=== PATIENT | female | born 1955 | race Caucasian/White ===

== ENCOUNTER 2023-05-22 18:22 | Inpatient (IN) ==
--- NOTE | 2023-05-22 18:39 | ED Triage Note ---
Date of Service May 22, 2023 History of Present Illness This patient was briefly evaluated while in triage. An abbreviated physical exam was performed. This patient is a 68-year-old Female who presents to the ED for evaluation of swelling in her legs and inability to put her shoes on. She also reports severe headaches, nausea and vomiting last week. The patient has a prior history of breast cancer. She follows with Dr. Daugherty. Physical Exam CONSTITUTIONAL: Healthy and well nourished. Patient does not appear in any significant distress. HEENT: No scleral icterus or conjunctival injection. RESPIRATORY: Clear to auscultation bilaterally with no wheezing, crackles, rhonchi or stridor. CARDIOVASCULAR: Regular rate and rhythm with no murmurs, rubs or gallops. MUSCULOSKELETAL: Examination shows notable edema of the lower extremities. Pedal pulses are intact. No open wounds or erythema noted. INTEGUMENTARY: No rash or other significant dermatologic conditions noted. HEMATOLOGIC: No ecchymosis or petechiae. PSYCHIATRIC: Flat affect. NEUROLOGIC: Lower extremities are sensory intact. Initial orders for labs and / or imaging were placed and patient was placed in the waiting area until a bed is available. Please see further documentation for the full ED course. MDM / Impression Impression Impression: Bilateral edema of lower extremity, AXEL (acute kidney injury), Hypertensive urgency
[2023-05-22 19:36] LABS: Basophils # (auto) 0.06 K/uL (0-0.2); Basophils % (auto) 0.4 %; Eosinophils % (auto) 2.2 %; Hematocrit (blood only) 32.8 % (37.0-47.0); Hemoglobin 10.6 g/dl (12.0-16.0); Immature Granulocytes # (auto) 0.05 K/uL (0.01-0.20); Immature Granulocytes % (auto) 0.4 %; Lymphocytes # (auto) 1.48 K/uL (1.2-3.4); Lymphocytes % (auto) 10.9 %; Mean Corpuscular Hemoglobin 28.3 pg (25.0-34.0); Mean Corpuscular Hgb Conc 32.3 g/dL (32.0-36.0); Mean Corpuscular Volume 87.5 fL (80.0-100.0); Mean Platelet Volume 10.4 fL (9.4-12.4); Monocytes # (auto) 0.64 K/uL (0.11-0.59); Monocytes % (auto) 4.7 %; Neutrophils # (auto) 11.04 K/uL (1.40-6.50); Neutrophils % (auto) 81.4 %; Platelet Count 404 K/uL (130-400); RDW Coefficient of Variation 14.6 % (11.5-14.5); RDW Standard Deviation 46.5 fL (36.4-46.3); Red Blood Count 3.75 M/uL (4.20-5.40); White Blood Count 13.57 K/ul (4.8-10.8)
[2023-05-22 19:59] LABS: Alanine Aminotransferase 18 U/L (7-52); Albumin Globulin Ratio 1.1 (0.9-2); Albumin Level 3.7 gm/dl (3.4-5.0); Alkaline Phosphatase 50 U/L (34-104); Anion Gap 8 (3-11); Aspartate Aminotransferase 20 U/L (13-39); Bilirubin,Total 0.2 mg/dl (0.2-1.0); Blood Urea Nitrogen 58 mg/dl (6-23); Calcium 8.9 mg/dl (8.6-10.3); Carbon Dioxide 23 mmol/L (21-32); Chloride 109 mmol/L (98-107); Est GFR (African American) 24.4 ml/min; Est GFR (Non-African American) 21.1 ml/min; Globulin 3.4 gm/dl (2.5-4.0); Glucose 93 mg/dl (70-99(Fasting)); Lipase 110 U/L (11-82); Potassium 4.8 mmol/L (3.5-5.1); Sodium 140 mmol/L (136-145); Total Protein 7.1 gm/dl (6.0-8.3)
[2023-05-22 20:06] LABS: Troponin I High Sensitivity 5.3 pg/ml (0-14)
[2023-05-22 20:15] LABS: INR 0.9 (0.9-1.1); Partial Thromboplastin Time 29.1 Seconds (21.0-31.0); Prothrombin Time 10.2 Seconds (9.0-12.0)
--- NOTE | 2023-05-22 21:06 | Emergency Department Note ---
Impression & Plan Bilateral edema of lower extremity, AXEL (acute kidney injury), Hypertensive urgency ED Provider Note Provider: Washington Abdi MD DATE OF SERVICE: 05/22/2023 CHIEF COMPLAINT: Leg swelling HISTORY OF PRESENT ILLNESS: Patient is a 68-year-old female history of breast cancer presenting here today with her due to onset over the last approximately 2 days of significant swelling of the lower legs. States she had difficulty getting her shoes on and is swelling here. States has been trying to hydrate well but having some loose stools. Denies any significant abdominal pain or chest pain. Denies any severe difficulty breathing. Patient has followed with Dr. Daugherty for oncology services. No recent significant travel reported. Patient and her report that in the [place] to get here today they were pulled over by the police but they were very concerned about her welfare and try to get the hospitalist quick as they could. PAST MEDICAL HISTORY: As noted above MEDICATIONS: Reviewed home medication list SOCIAL HISTORY: Lives at home with her third PHYSICAL EXAM: GENERAL: alert and oriented in no acute distress on stretcher somewhat tearful at times Head: normocephalic and atraumatic EYES: No injection, discharge or icterus. NECK: Trachea midline. ENT: Mucous membranes pink and moist. LUNGS: Airway patent. No retractions without significant tachypnea HEART: Regular rate and rhythm. No chest wall tenderness ABDOMEN: Soft and non-tender, without guarding or rebound. SKIN: Acyanotic, warm, dry, without rashes EXTREMITIES: Lower extremities with 3+ edema bilaterally without significant erythema or obvious weeping. NEUROLOGICAL: No focal deficits. No aphasia. No facial droop or slurred speech. Ambulatory. EK bpm sinus bradycardia with sinus arrhythmia. No PVC or PAC. No acute ST segment elevation or depression with QTc 388. CONTINUOUS CARDIAC MONITORING: was ordered and showed a heart rate of 60s-70s bpm in normal sinus rhythm Patient's laboratory studies and imaging reviewed. Differential includes CHF/ACS, infections, cardiac ischemia, pulmonary embolism/VTE, musculoskeletal, renal dysfunction, obstructive uropathy,, as well as other pathologies. 1 view chest x-ray per my interpretation: No evidence of cardiomegaly or significant pleural effusions. No consolidation but some pulmonary vascular congestion noted. IMPRESSION/MEDICAL DECISION MAKING: Reviewed [facility] medical record and last Dr. Daugherty note from March. Baseline cre atinine 1.3-1.2 last in March of this year. BNP and troponin not elevated today. EKG without acute ischemic findings. Significant swelling of bilateral lower extremities and ultrasounds obtained here from triage. No evidence of DVT. Basic labs obtained. Worsened renal function with AXEL at this time. D patient states has been trying to hydrate well. No evidence of hepatitis or pancreatitis. No severe electrolyte abnormalities. Nonspecific leukocytosis of 13.5 today. Slight anemia of 10.6. Not hypoxic here. Chest x-ray with maybe some slight pulmonary edema. Given her significant fluid overload and signs of renal dysfunction question if she may have more fluid overload type issues. We will send for a noncontrast CT scan of the abdomen pelvis to look for any obstructive findings. Discussed with patient and . Will require further care at the hospital given her significant edema. Will not add additional fluid at this time given evidence of fluid overload but consider diuresis. Patient has been hypertensive here. Given a small dose of hydralazine. CT report reviewed without evidence of obstructive uropathy. Small dose of Lasix ordered. Discussed with the hospitalist. DIAGNOSIS: Lower extremity edema, AXEL, hypertension DISPOSITION: Hospitalist will evaluate Patient was agreeable with this plan. Past Med/Surg History Medical History Acute schizophrenia Bipolar 1 disorder Breast cancer Surgical History No significant past surgical history Social History Smoking Status: Never smoker marital status: Current Living Situation: Spouse current occupational status: retired Feels Safe at Home: Yes Allergies Allergies Allergy/AdvReac Type Severity Reaction Status Date / Time cephalexin Allergy Severe HIVES Verified 05/22/23 21:36 cefprozil Allergy Unknown UNKNOWN Verified 05/22/23 21:36 Home Meds Home Medications Medication Instructions Recorded Confirmed cholecalciferol (vitamin D3) 50 50 mcg PO DAILY 05/22/23 05/22/23 mcg (2,000 unit) tablet (Vitamin D3) coenzyme Q10 30 mg capsule 30 mg PO DAILY 05/22/23 05/22/23 ferrous sulfate 325 mg (65 mg 325 mg PO DAILY 05/22/23 05/22/23 iron) tablet (iron) iodine (kelp) 0.15 mg tablet (Kelp) 0 mcg PO DAILY 05/22/23 05/22/23 vitamin B complex 1 tab PO DAILY 05/22/23 05/22/23 Results & Data (ED) Vital Signs Vital Signs - 24 hr 05/22/23 18:35 05/22/23 20:56 05/22/23 21:45 Temperature 36.6 C Temperature Source Temporal Artery Scan Pulse Rate 80 53 L 55 L Pulse Rate from SpO2 Sensor Pulse Rhythm Regular Respiratory Rate 18 18 Blood Pressure 173/91 H Blood Pressure Mean 118 Pulse Oximetry 99 100 Oxygen Delivery Method Room Air Room Air Sepsis Recent Fever Within 48 Hours No Sepsis New/Unexplained Change in Mental Status N/A Sepsis Action Taken by Nursing No Action Required 05/22/23 20:54 05/22/23 21:00 05/22/23 21:31 Temperature Temperature Source Pulse Rate 55 L 60 69 Pulse Rate from SpO2 Sensor 54 L 62 70 Pulse Rhythm Respiratory Rate 16 22 23 Blood Pressure 183/101 H 189/87 H 201/103 H Blood Pressure Mean 128 121 135 Pulse Oximetry 99 100 100 Oxygen Delivery Method Sepsis Recent Fever Within 48 Hours Sepsis New/Unexplained Change in Mental Status Sepsis Action Taken by Nursing 05/22/23 21:32 05/22/23 21:37 05/22/23 21:38 Temperature Temperature Source Pulse Rate 68 65 68 Pulse Rate from SpO2 Sensor 66 65 64 Pulse Rhythm Respiratory Rate 14 15 13 Blood Pressure 191/79 H 190/79 H 180/89 H Blood Pressure Mean 116 116 119 Pulse Oximetry 100 100 100 Oxygen Delivery Method Sepsis Recent Fever Within 48 Hours Sepsis New/Unexplained Change in Mental Status Sepsis Action Taken by Nursing Laboratory Data 05/22/23 19:15 05/22/23 19:15 Lab Results 05/22/23 05/22/23 05/22/23 Range/Units 19:15 19:15 19:15 WBC 13.57 H (4.8-10.8) K/ul RBC 3.75 L (4.20-5.40) M/uL Hgb 10.6 L (12.0-16.0) g/dl Hct 32.8 L (37.0-47.0) % MCV 87.5 (80.0-100.0) fL MCH 28.3 (25.0-34.0) pg MCHC 32.3 (32.0-36.0) g/dL RDW Std Deviation 46.5 H (36.4-46.3) fL RDW Coeff of Seth 14.6 H (11.5-14.5) % Plt Count 404 H (130-400) K/uL MPV 10.4 (9.4-12.4) fL Immature Gran % (Auto) 0.4 % Neut % (Auto) 81.4 % Lymph % (Auto) 10.9 % Grand % (Auto) 4.7 % Eos % (Auto) 2.2 % Baso % (Auto) 0.4 % Neut # (Auto) 11.04 H (1.40-6.50) K/uL Lymph # (Auto) 1.48 (1.2-3.4) K/uL Grand # (Auto) 0.64 H (0.11-0.59) K/uL Eos # (Auto) 0.30 (0-0.50) K/uL Baso # (Auto) 0.06 (0-0.2) K/uL Immature Gran # (Auto) 0.05 (0.01-0.20) K/uL PT 10.2 (9.0-12.0) Seconds INR 0.9 (0.9-1.1) APTT 29.1 (21.0-31.0) Seconds PTT Ratio 1.0 Sodium 140 (136-145) mmol/L Potassium 4.8 (3.5-5.1) mmol/L Chloride 109 H (98-107) mmol/L Carbon Dioxide 23 (21-32) mmol/L Anion Gap 8 (3-11) BUN 58 H (6-23) mg/dl Creatinine 2.32 H (0.6-1.2) mg/dl Est Cr Clr Drug Dosing Not Reportable Est GFR ( Amer) 24.4 ml/min Est GFR (Non-Af Amer) 21.1 ml/min BUN/Creatinine Ratio 25.0 H (10-20) Glucose 93 (70-99(Fasting)) mg/dl Calcium 8.9 (8.6-10.3) mg/dl Magnesium 2.4 (1.7-2.4) mg/dl Total Bilirubin 0.2 (0.2-1.0) mg/dl AST 20 (13-39) U/L ALT 18 (7-52) U/L Alkaline Phosphatase 50 (34-104) U/L Troponin I High Sens 5.3 (0-14) pg/ml B-Natriuretic Peptide (0-100) pg/ml Total Protein 7.1 (6.0-8.3) gm/dl Albumin 3.7 (3.4-5.0) gm/dl Globulin 3.4 (2.5-4.0) gm/dl Albumin/Globulin Ratio 1.1 (0.9-2) Lipase 110 H (11-82) U/L TSH (0.300-4.500) uIu/ml 05/22/23 05/22/23 Range/Units 19:15 19:16 WBC (4.8-10.8) K/ul RBC (4.20-5.40) M/uL Hgb (12.0-16.0) g/dl Hct (37.0-47.0) % MCV (80.0-100.0) fL MCH (25.0-34.0) pg MCHC (32.0-36.0) g/dL RDW Std Deviation (36.4-46.3) fL RDW Coeff of Seth (11.5-14.5) % Plt Count (130-400) K/uL MPV (9.4-12.4) fL Immature Gran % (Auto) % Neut % (Auto) % Lymph % (Auto) % Grand % (Auto) % Eos % (Auto) % Baso % (Auto) % Neut # (Auto) (1.40-6.50) K/uL Lymph # (Auto) (1.2-3.4) K/uL Grand # (Auto) (0.11-0.59) K/uL Eos # (Auto) (0-0.50) K/uL Baso # (Auto) (0-0.2) K/uL Immature Gran # (Auto) (0.01-0.20) K/uL PT (9.0-12.0) Seconds INR (0.9-1.1) APTT (21.0-31.0) Seconds PTT Ratio Sodium (136-145) mmol/L Potassium (3.5-5.1) mmol/L Chloride (98-107) mmol/L Carbon Dioxide (21-32) mmol/L Anion Gap (3-11) BUN (6-23) mg/dl Creatinine (0.6-1.2) mg/dl Est Cr Clr Drug Dosing Est GFR ( Amer) ml/min Est GFR (Non-Af Amer) ml/min BUN/Creatinine Ratio (10-20) Glucose (70-99(Fasting)) mg/dl Calcium (8.6-10.3) mg/dl Magnesium (1.7-2.4) mg/dl Total Bilirubin (0.2-1.0) mg/dl AST (13-39) U/L ALT (7-52) U/L Alkaline Phosphatase (34-104) U/L Troponin I High Sens (0-14) pg/ml B-Natriuretic Peptide 76 (0-100) pg/ml Total Protein (6.0-8.3) gm/dl Albumin (3.4-5.0) gm/dl Globulin (2.5-4.0) gm/dl Albumin/Globulin Ratio (0.9-2) Lipase (11-82) U/L TSH 3.993 (0.300-4.500) uIu/ml Administered Medications Discontinued Medications Hydralazine HCl (Hydralazine Hcl 20 Mg/Ml Vial) 5 mg IV NOW ONE Stop: 05/22/23 21:33 Last Admin: 05/22/23 21:37 Dose: 5 mg Documented By: MAS Imaging Data Radiologist's Impression: Venous Doppler Study 05/22/23 18:39 Exam(s): US VENOUS BILATERAL LOWER EXTREMITIES EXAM: US Duplex Bilateral Lower Extremities Veins CLINICAL HISTORY: Reason for exam: BLE edema. TECHNIQUE: Real-time duplex ultrasound scan of the bilateral lower extremity veins integrating B-mode two-dimensional vascular structure, Doppler spectral analysis, color flow Doppler imaging and compression. COMPARISON: No relevant prior studies available. FINDINGS: Right deep veins: Unremarkable. No DVT in the right common femoral, femoral, proximal deep femoral or popliteal veins. The veins demonstrate normal color flow, are normally compressible, with normal phasic flow and/or augmentation response. Right superficial veins: Unremarkable. No thrombus in the visualized right great saphenous vein. Left deep veins: Unremarkable. No DVT in the left common femoral, femoral, proximal deep femoral or popliteal veins. The veins demonstrate normal color flow, are normally compressible, with normal phasic flow and/or augmentation response. Left superficial veins: Unremarkable. No thrombus in the visualized left great saphenous vein. Soft tissues: No acute findings. No popliteal cyst. IMPRESSION: Normal bilateral lower extremity duplex venous ultrasound. Electronically signed by: Baljinder Valdez MD 05/22/23 21:28 PM Abdomen/Pelvis CT 05/22/23 21:27 Exam(s): CT ABDOMEN + PELVIS Without Contrast EXAM: CT Abdomen and Pelvis Without Intravenous Contrast CLINICAL HISTORY: axel, swelling. TECHNIQUE: Axial computed tomography images of the abdomen and pelvis without intravenous contrast. CTDI is 27.9 mGy and DLP is 1361.21 mGy-cm. Automated exposure control was utilized for the study. A dose lowering technique was utilized adhering to the principles of ALARA. COMPARISON: Unenhanced CT abdomen and pelvis dated 08/11/2019 FINDINGS: Lung bases: Unremarkable. No mass. No consolidation. Pleural space: Trace bilateral pleural effusions layering posteriorly subcentimeter in thickness. ABDOMEN: Liver: Unremarkable. Gallbladder and bile ducts: Stable cholecystectomy. No ductal dilation. Pancreas: Unremarkable. No ductal dilation. Spleen: Unremarkable. No splenomegaly. Adrenals: Unremarkable. No mass. Kidneys and ureters: The unenhanced kidneys demonstrate stable contours without nephrolithiasis or hydronephrosis. No ureteral stones. Stomach and bowel: No evidence for bowel obstruction. Evaluation of the bowel mucosa is slightly limited without contrast; however, no definite focal asymmetry suggested. PELVIS: Appendix: No findings to suggest acute appendicitis. Bladder: Unremarkable. No stones. Reproductive: Unremarkable as visualized. ABDOMEN and PELVIS: Intraperitoneal space: Unremarkable. No free air. No significant fluid collection. Bones/joints: No acute fracture. No dislocation. Soft tissues: Similar laxity and atrophy of the anterior abdominal wall musculature, similar. Subtle subcutaneous fat stranding and edema involving the superficial soft tissues of the pelvis and inferior abdomen, new. No loculated fluid collection. Vasculature: Unremarkable. No abdominal aortic aneurysm. Lymph nodes: Unremarkable. No enlarged lymph nodes. IMPRESSION: 1. The unenhanced kidneys demonstrate stable contours without nephrolithiasis or hydronephrosis. No ureteral stones. 2. Subtle subcutaneous fat stranding and edema involving the superficial soft tissues of the pelvis and inferior abdomen, new. No loculated fluid collection. Findings are nonspecific but may represent subtle positive fluid status or inflammation. 3. Trace bilateral pleural effusions layering posteriorly subcentimeter in thickness. Electronically signed by: Len Sal MD 05/22/23 22:52 PM Discharge Plan Visit Data Chief Complaint: Swelling/Edema to Extremity Stated Complaint: CANCER PT,EXTREME SWELLING LEGS TO KNEES ED Provider: Washington Abdi Discharge Problem: Bilateral edema of lower extremity, AXEL (acute kidney injury), Hypertensive urgency Patient Disposition: Being Evaluated by Hospitalist Forms Stand Alone Forms: My [facility] Prescriptions Prescriptions: No Action Kelp 0.15 mg Tablet 0 mcg PO DAILY ferrous sulfate [iron] 325 mg (65 mg iron) Tablet 325 mg PO DAILY vitamin B complex [Vitamin B-100 Complex] Tablet 1 tab PO DAILY coenzyme Q10 [CoQ-10] 30 mg Capsule 30 mg PO DAILY cholecalciferol (vitamin D3) [Vitamin D3] 50 mcg (2,000 unit) Tablet 50 mcg PO DAILY Referrals Referrals: Anthony Costello DO [Primary Care Provider] -
--- NOTE | 2023-05-22 21:29 | Ultrasound Report ---
Exam(s): US VENOUS BILATERAL LOWER EXTREMITIES EXAM: US Duplex Bilateral Lower Extremities Veins CLINICAL HISTORY: Reason for exam: BLE edema. TECHNIQUE: Real-time duplex ultrasound scan of the bilateral lower extremity veins integrating B-mode two-dimensional vascular structure, Doppler spectral analysis, color flow Doppler imaging and compression. COMPARISON: No relevant prior studies available. FINDINGS: Right deep veins: Unremarkable. No DVT in the right common femoral, femoral, proximal deep femoral or popliteal veins. The veins demonstrate normal color flow, are normally compressible, with normal phasic flow and/or augmentation response. Right superficial veins: Unremarkable. No thrombus in the visualized right great saphenous vein. Left deep veins: Unremarkable. No DVT in the left common femoral, femoral, proximal deep femoral or popliteal veins. The veins demonstrate normal color flow, are normally compressible, with normal phasic flow and/or augmentation response. Left superficial veins: Unremarkable. No thrombus in the visualized left great saphenous vein. Soft tissues: No acute findings. No popliteal cyst. IMPRESSION: Normal bilateral lower extremity duplex venous ultrasound. Electronically signed by: Baljinder Valdez MD 05/22/23 21:28 PM
[2023-05-22] MEDS ORDERED: hydrALAZINE HCL 20 MG/ML VIAL IV ONE (21:32)
[2023-05-22] MEDS ORDERED: FUROSEMIDE INJ 20 MG/2 ML VIAL IV ONE (22:31)
[2023-05-22] MEDS ORDERED: ALBUMIN 25% 25 GM/100 ML VIAL IV ONE (22:43)
--- NOTE | 2023-05-22 22:53 | CT Scan Report ---
Exam(s): CT ABDOMEN + PELVIS Without Contrast EXAM: CT Abdomen and Pelvis Without Intravenous Contrast CLINICAL HISTORY: meaghan, swelling. TECHNIQUE: Axial computed tomography images of the abdomen and pelvis without intravenous contrast. CTDI is 27.9 mGy and DLP is 1361.21 mGy-cm. Automated exposure control was utilized for the study. A dose lowering technique was utilized adhering to the principles of ALARA. COMPARISON: Unenhanced CT abdomen and pelvis dated 08/11/2019 FINDINGS: Lung bases: Unremarkable. No mass. No consolidation. Pleural space: Trace bilateral pleural effusions layering posteriorly subcentimeter in thickness. ABDOMEN: Liver: Unremarkable. Gallbladder and bile ducts: Stable cholecystectomy. No ductal dilation. Pancreas: Unremarkable. No ductal dilation. Spleen: Unremarkable. No splenomegaly. Adrenals: Unremarkable. No mass. Kidneys and ureters: The unenhanced kidneys demonstrate stable contours without nephrolithiasis or hydronephrosis. No ureteral stones. Stomach and bowel: No evidence for bowel obstruction. Evaluation of the bowel mucosa is slightly limited without contrast; however, no definite focal asymmetry suggested. PELVIS: Appendix: No findings to suggest acute appendicitis. Bladder: Unremarkable. No stones. Reproductive: Unremarkable as visualized. ABDOMEN and PELVIS: Intraperitoneal space: Unremarkable. No free air. No significant fluid collection. Bones/joints: No acute fracture. No dislocation. Soft tissues: Similar laxity and atrophy of the anterior abdominal wall musculature, similar. Subtle subcutaneous fat stranding and edema involving the superficial soft tissues of the pelvis and inferior abdomen, new. No loculated fluid collection. Vasculature: Unremarkable. No abdominal aortic aneurysm. Lymph nodes: Unremarkable. No enlarged lymph nodes. IMPRESSION: 1. The unenhanced kidneys demonstrate stable contours without nephrolithiasis or hydronephrosis. No ureteral stones. 2. Subtle subcutaneous fat stranding and edema involving the superficial soft tissues of the pelvis and inferior abdomen, new. No loculated fluid collection. Findings are nonspecific but may represent subtle positive fluid status or inflammation. 3. Trace bilateral pleural effusions layering posteriorly subcentimeter in thickness. Electronically signed by: Len Sal MD 05/22/23 22:52 PM
[2023-05-22 23:41] LABS: Magnesium 2.4 mg/dl (1.7-2.4)
--- NOTE | 2023-05-23 00:25 | CT Scan Report ---
Exam(s): CT HEAD Without Contrast EXAM: CT Head Without Intravenous Contrast CLINICAL HISTORY: valle, sbp 200. TECHNIQUE: Axial computed tomography images of the head/brain without intravenous contrast. CTDI is 36.5 mGy and DLP is 625.8 mGy-cm. Automated exposure control was utilized for the study. A dose lowering technique was utilized adhering to the principles of ALARA. COMPARISON: Noncontrast CT head 12/26/2013 FINDINGS: Brain: Unremarkable. No hemorrhage. No significant white matter disease. No edema. Ventricles: Unremarkable. No ventriculomegaly. Bones/joints: Unremarkable. No acute fracture. Soft tissues: Unremarkable. Sinuses: Unremarkable as visualized. No acute sinusitis. Mastoid air cells: Unremarkable as visualized. No mastoid effusion. IMPRESSION: No acute intracranial process or significant alteration from the previous examination. Electronically signed by: Len Sal MD 05/23/23 00:25 AM
--- NOTE | 2023-05-23 00:38 | History & Physical Report ---
Date of Service May 23, 2023 Assessment & Plan (1) Hypertensive crisis: Plan: Presenting with signs of fluid retention/possible right-sided heart failure Rule out sleep disordered breathing ARF on CKD secondary to illness recurrent breast cancer left status post surgery/reconstruction/chemotherapy chronic anemia, hemoglobin at baseline mood disorder, at baseline, patient off maintenance medications PCU Initiate Coreg TTE Outpatient sleep study Monitor creatinine response to IV albumin Nephrology consult Re: HTN, ARF on CKD Further management pending work-up results DVT prophylaxis. Heparin subcu Full code Patient requesting updates from providers. Mr. Laureano Garcia, contact #[phone]. Text document was generated using Medigo voice recognition software. It may contain grammatical or spelling errors. Kindly contact undersigned for clarification of any documentation item in question. History of Present Illness Chief Complaint: Bilateral leg swelling, weight gain, headache Primary Care Provider: Anthony Costello DO/Laverne Hameed/SYMONE History obtained from patient, family, and records. Medical history significant for recurrent breast cancer left status post surgery/reconstruction/chemotherapy, CRI (baseline creatinine 1.3), chronic anemia (baseline hemoglobin of 10), mood disorder, orthostatic hypotension as per records, difficult intubation as per records. Last confinement 2013 under Psychiatry service for bipolar disorder/mick. 2 days ago, patient noted increased bilateral leg swelling with unquantified weight gain. Patient took 2 Aleve tablets for pain. Achy headache symptoms. No chest pain. Usual shortness of breath worse on exertion. Some abdominal discomfort. No fever, no chills. Patient thinks patient may have sleep apnea given witnessed snoring symptoms and possible apnea during sleep. Patient brought to the ER for evaluation. Highest SBP at the ER 200s. Hydralazine and Lasix administered at the ER. 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 Allergies Allergy/AdvReac Type Severity Reaction Status Date / Time cephalexin Allergy Severe HIVES Verified 05/22/23 21:36 cefprozil Allergy Unknown UNKNOWN Verified 05/22/23 21:36 Home Medications Medication Instructions Recorded Confirmed Type cholecalciferol (vitamin D3) 50 50 mcg PO DAILY 05/22/23 05/22/23 History mcg (2,000 unit) tablet (Vitamin D3) coenzyme Q10 30 mg capsule 30 mg PO DAILY 05/22/23 05/22/23 History ferrous sulfate 325 mg (65 mg 325 mg PO DAILY 05/22/23 05/22/23 History iron) tablet (iron) iodine (kelp) 0.15 mg tablet (Kelp) 0 mcg PO DAILY 05/22/23 05/22/23 History vitamin B complex 1 tab PO DAILY 05/22/23 05/22/23 History Past Med/Surg History Medical History Acute schizophrenia Bipolar 1 disorder Breast cancer Surgical History No significant past surgical history Social History Smoking Status: Former smoker Second Hand Exposure: No; Do You Dip or Chew Tobacco: No; Hx Alcohol Use: No Hx Substance Use: No Preferred Language: Maldivian Communication Ability: Effective 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: No Beliefs That Will Affect Care: None marital status: Current Living Situation: Spouse current occupational status: retired Other Information That Helps Us Care for You: No Feels Safe at Home: Yes Safety Concerns: Feels Safe At This Time Assistive Devices: Glasses Review of Systems Review of Systems: As per HPI, all other systems reviewed and negative Physical Exam Physical Exam: GENERAL: Slightly uncomfortable, morbidly obese, unkempt, no respiratory distress SKIN: Pallor, warm HEENT: Pale palpebral conjunctivae, no ptosis, dry buccal mucosa NECK : Supple, short neck, no tenderness CHEST : Decreased breath sounds, no tenderness HEART : RRR, no obvious murmurs ABDOMEN: Some distention, nontender EXTREMITIES : Bilateral LE swelling, no LE tenderness, no other conspicuous deformities noted NEUROLOGIC : Coherent, no facial asymmetry, no other gross focality Results & Data Results & Data Vital Signs (Past 12 Hours) Vital Signs Temp Pulse Resp BP Pulse Ox O2 Del Method 05/23/23 00:25 83 29 H 196/98 H 05/23/23 00:22 76 32 H 187/90 H 05/23/23 00:16 67 20 163/110 H 05/23/23 00:10 65 16 159/87 H 97 05/23/23 00:05 57 L 22 161/78 H 98 05/23/23 00:00 67 17 148/89 H 98 05/22/23 23:55 65 17 155/77 H 97 05/22/23 23:50 56 L 15 153/79 H 98 05/22/23 23:45 57 L 18 98 05/22/23 23:36 64 16 160/76 H 100 05/22/23 23:15 58 L 16 164/71 H 99 05/22/23 23:11 59 L 14 99 05/22/23 23:00 68 14 174/69 H 98 05/22/23 22:55 71 25 H 137/108 H 99 05/22/23 22:45 65 15 175/85 H 98 05/22/23 22:40 58 L 16 165/82 H 97 05/22/23 22:35 61 15 178/80 H 97 05/22/23 22:30 60 15 173/86 H 98 05/22/23 22:25 63 12 167/80 H 98 05/22/23 22:20 53 L 12 171/84 H 98 05/22/23 22:18 54 L 18 169/82 H 99 05/22/23 22:16 60 11 L 05/22/23 21:55 53 L 16 187/80 H 100 05/22/23 21:50 55 L 15 187/81 H 99 05/22/23 21:45 189/80 H 05/22/23 21:45 55 L 23 170/76 H 100 05/22/23 21:41 55 L 15 177/86 H 99 05/22/23 21:38 68 13 180/89 H 100 05/22/23 21:37 65 15 190/79 H 100 05/22/23 21:32 68 14 191/79 H 100 05/22/23 21:31 69 23 201/103 H 100 05/22/23 21:00 60 22 189/87 H 100 05/22/23 20:54 55 L 16 183/101 H 99 05/22/23 21:45 55 L 18 100 Room Air 05/22/23 20:56 53 L 05/22/23 18:35 36.6 C 80 18 173/91 H 99 Room Air Laboratory Results Laboratory Results WBC 13.57 K/ul (4.8-10.8) H 05/22/23 19:15 RBC 3.75 M/uL (4.20-5.40) L 05/22/23 19:15 Hgb 10.6 g/dl (12.0-16.0) L 05/22/23 19:15 Hct 32.8 % (37.0-47.0) L 05/22/23 19:15 MCV 87.5 fL (80.0-100.0) 05/22/23 19:15 MCH 28.3 pg (25.0-34.0) 05/22/23 19:15 MCHC 32.3 g/dL (32.0-36.0) 05/22/23 19:15 RDW Std Deviation 46.5 fL (36.4-46.3) H 05/22/23 19:15 RDW Coeff of Seth 14.6 % (11.5-14.5) H 05/22/23 19:15 Plt Count 404 K/uL (130-400) H 05/22/23 19:15 MPV 10.4 fL (9.4-12.4) 05/22/23 19:15 Immature Gran % (Auto) 0.4 % 05/22/23 19:15 Neut % (Auto) 81.4 % 05/22/23 19:15 Lymph % (Auto) 10.9 % 05/22/23 19:15 Ada % (Auto) 4.7 % 05/22/23 19:15 Eos % (Auto) 2.2 % 05/22/23 19:15 Baso % (Auto) 0.4 % 05/22/23 19:15 Neut # (Auto) 11.04 K/uL (1.40-6.50) H 05/22/23 19:15 Lymph # (Auto) 1.48 K/uL (1.2-3.4) 05/22/23 19:15 Ada # (Auto) 0.64 K/uL (0.11-0.59) H 05/22/23 19:15 Eos # (Auto) 0.30 K/uL (0-0.50) 05/22/23 19:15 Baso # (Auto) 0.06 K/uL (0-0.2) 05/22/23 19:15 Immature Gran # (Auto) 0.05 K/uL (0.01-0.20) 05/22/23 19:15 PT 10.2 Seconds (9.0-12.0) 05/22/23 19:15 INR 0.9 (0.9-1.1) 05/22/23 19:15 APTT 29.1 Seconds (21.0-31.0) 05/22/23 19:15 PTT Ratio 1.0 05/22/23 19:15 Sodium 140 mmol/L (136-145) 05/22/23 19:15 Potassium 4.8 mmol/L (3.5-5.1) 05/22/23 19:15 Chloride 109 mmol/L (98-107) H 05/22/23 19:15 Carbon Dioxide 23 mmol/L (21-32) 05/22/23 19:15 Anion Gap 8 (3-11) 05/22/23 19:15 BUN 58 mg/dl (6-23) H 05/22/23 19:15 Creatinine 2.32 mg/dl (0.6-1.2) H 05/22/23 19:15 Est Cr Clr Drug Dosing Not Reportable 05/22/23 19:15 Est GFR ( Amer) 24.4 ml/min 05/22/23 19:15 Est GFR (Non-Af Amer) 21.1 ml/min 05/22/23 19:15 BUN/Creatinine Ratio 25.0 (10-20) H 05/22/23 19:15 Glucose 93 mg/dl (70-99(Fasting)) 05/22/23 19:15 Calcium 8.9 mg/dl (8.6-10.3) 05/22/23 19:15 Magnesium 2.4 mg/dl (1.7-2.4) 05/22/23 19:15 Total Bilirubin 0.2 mg/dl (0.2-1.0) 05/22/23 19:15 AST 20 U/L (13-39) 05/22/23 19:15 ALT 18 U/L (7-52) 05/22/23 19:15 Alkaline Phosphatase 50 U/L (34-104) 05/22/23 19:15 Troponin I High Sens 5.3 pg/ml (0-14) 05/22/23 19:15 B-Natriuretic Peptide 76 pg/ml (0-100) 05/22/23 19:15 Total Protein 7.1 gm/dl (6.0-8.3) 05/22/23 19:15 Albumin 3.7 gm/dl (3.4-5.0) 05/22/23 19:15 Globulin 3.4 gm/dl (2.5-4.0) 05/22/23 19:15 Albumin/Globulin Ratio 1.1 (0.9-2) 05/22/23 19:15 Lipase 110 U/L (11-82) H 05/22/23 19:15 TSH 3.993 uIu/ml (0.300-4.500) 05/22/23 19:16 SARS-CoV-2, RNA, NAAT NEGATIVE (NEGATIVE) 05/22/23 23:58 Impressions Venous Doppler Study 05/22/23 18:39 Exam(s): US VENOUS BILATERAL LOWER EXTREMITIES EXAM: US Duplex Bilateral Lower Extremities Veins CLINICAL HISTORY: Reason for exam: BLE edema. TECHNIQUE: Real-time duplex ultrasound scan of the bilateral lower extremity veins integrating B-mode two-dimensional vascular structure, Doppler spectral analysis, color flow Doppler imaging and compression. COMPARISON: No relevant prior studies available. FINDINGS: Right deep veins: Unremarkable. No DVT in the right common femoral, femoral, proximal deep femoral or popliteal veins. The veins demonstrate normal color flow, are normally compressible, with normal phasic flow and/or augmentation response. Right superficial veins: Unremarkable. No thrombus in the visualized right great saphenous vein. Left deep veins: Unremarkable. No DVT in the left common femoral, femoral, proximal deep femoral or popliteal veins. The veins demonstrate normal color flow, are normally compressible, with normal phasic flow and/or augmentation response. Left superficial veins: Unremarkable. No thrombus in the visualized left great saphenous vein. Soft tissues: No acute findings. No popliteal cyst. IMPRESSION: Normal bilateral lower extremity duplex venous ultrasound. Electronically signed by: Baljinder Valdez MD 05/22/23 21:28 PM Abdomen/Pelvis CT 05/22/23 21:27 Exam(s): CT ABDOMEN + PELVIS Without Contrast EXAM: CT Abdomen and Pelvis Without Intravenous Contrast CLINICAL HISTORY: meaghan, swelling. TECHNIQUE: Axial computed tomography images of the abdomen and pelvis without intravenous contrast. CTDI is 27.9 mGy and DLP is 1361.21 mGy-cm. Automated exposure control was utilized for the study. A dose lowering technique was utilized adhering to the principles of ALARA. COMPARISON: Unenhanced CT abdomen and pelvis dated 08/11/2019 FINDINGS: Lung bases: Unremarkable. No mass. No consolidation. Pleural space: Trace bilateral pleural effusions layering posteriorly subcentimeter in thickness. ABDOMEN: Liver: Unremarkable. Gallbladder and bile ducts: Stable cholecystectomy. No ductal dilation. Pancreas: Unremarkable. No ductal dilation. Spleen: Unremarkable. No splenomegaly. Adrenals: Unremarkable. No mass. Kidneys and ureters: The unenhanced kidneys demonstrate stable contours without nephrolithiasis or hydronephrosis. No ureteral stones. Stomach and bowel: No evidence for bowel obstruction. Evaluation of the bowel mucosa is slightly limited without contrast; however, no definite focal asymmetry suggested. PELVIS: Appendix: No findings to suggest acute appendicitis. Bladder: Unremarkable. No stones. Reproductive: Unremarkable as visualized. ABDOMEN and PELVIS: Intraperitoneal space: Unremarkable. No free air. No significant fluid collection. Bones/joints: No acute fracture. No dislocation. Soft tissues: Similar laxity and atrophy of the anterior abdominal wall musculature, similar. Subtle subcutaneous fat stranding and edema involving the superficial soft tissues of the pelvis and inferior abdomen, new. No loculated fluid collection. Vasculature: Unremarkable. No abdominal aortic aneurysm. Lymph nodes: Unremarkable. No enlarged lymph nodes. IMPRESSION: 1. The unenhanced kidneys demonstrate stable contours without nephrolithiasis or hydronephrosis. No ureteral stones. 2. Subtle subcutaneous fat stranding and edema involving the superficial soft tissues of the pelvis and inferior abdomen, new. No loculated fluid collection. Findings are nonspecific but may represent subtle positive fluid status or inflammation. 3. Trace bilateral pleural effusions layering posteriorly subcentimeter in thickness. Electronically signed by: Len Sal MD 05/22/23 22:[address] 05/22/23 22:59 Exam(s): CT HEAD Without Contrast EXAM: CT Head Without Intravenous Contrast CLINICAL HISTORY: valle, sbp 200. TECHNIQUE: Axial computed tomography images of the head/brain without intravenous contrast. CTDI is 36.5 mGy and DLP is 625.8 mGy-cm. Automated exposure control was utilized for the study. A dose lowering technique was utilized adhering to the principles of ALARA. COMPARISON: Noncontrast CT head 12/26/2013 FINDINGS: Brain: Unremarkable. No hemorrhage. No significant white matter disease. No edema. Ventricles: Unremarkable. No ventriculomegaly. Bones/joints: Unremarkable. No acute fracture. Soft tissues: Unremarkable. Sinuses: Unremarkable as visualized. No acute sinusitis. Mastoid air cells: Unremarkable as visualized. No mastoid effusion. IMPRESSION: No acute intracranial process or significant alteration from the previous examination. Electronically signed by: Len Sal MD 05/23/23 00:25 AM Diagnostic Findings EKG as per my interpretation : Rate 55, sinus bradycardia, normal axis, no ischemia
[2023-05-23] MEDS ORDERED: carvediloL 3.125 MG TAB PO ONE (00:41)
[2023-05-23] MEDS ORDERED: ACETAMINOPHEN 325 MG TAB PO PRN (02:13)
[2023-05-23] MEDS ORDERED: PROMETHAZINE HCL 12.5 MG in SODIUM CHLORIDE 0.9% 50 ML IV PRN (02:13)
[2023-05-23] MEDS ORDERED: traMADol HCL 50 MG TABLET PO PRN (02:13)
[2023-05-23 02:35] LABS: Appearance Urine Clear (Clear); Bilirubin Urine Negative (Negative); Blood Urine Negative (Negative); Color Urine Yellow; Epithelial Cell Urine Auto >30 /lpf (0-5); Glucose Urine UA Negative (Negative); Ketones Urine Negative (Negative); Leukocyte Esterase Urine Negative (Negative); Nitrite Urine Negative (Negative); Protein Urine 4+ (Negative); Urobilinogen Urine Negative (Negative)
[2023-05-23 03:13] LABS: Bacteria Urine Automated 1+ (Negative); RBC Urine Automated 0-4 /hpf (0-4)
[2023-05-23 06:36] LABS: Basophils # (auto) 0.03 K/uL (0-0.2); Basophils % (auto) 0.3 %; Eosinophils # (auto) 0.16 K/uL (0-0.50); Eosinophils % (auto) 1.5 %; Hematocrit (blood only) 29.5 % (37.0-47.0); Hemoglobin 9.8 g/dl (12.0-16.0); Immature Granulocytes # (auto) 0.04 K/uL (0.01-0.20); Immature Granulocytes % (auto) 0.4 %; Lymphocytes # (auto) 1.33 K/uL (1.2-3.4); Lymphocytes % (auto) 12.6 %; Mean Corpuscular Hemoglobin 28.7 pg (25.0-34.0); Mean Corpuscular Hgb Conc 33.2 g/dL (32.0-36.0); Mean Corpuscular Volume 86.5 fL (80.0-100.0); Mean Platelet Volume 10.3 fL (9.4-12.4); Monocytes # (auto) 0.64 K/uL (0.11-0.59); Monocytes % (auto) 6.1 %; Neutrophils # (auto) 8.33 K/uL (1.40-6.50); Neutrophils % (auto) 79.1 %; Platelet Count 325 K/uL (130-400); RDW Coefficient of Variation 14.7 % (11.5-14.5); RDW Standard Deviation 46.3 fL (36.4-46.3); Red Blood Count 3.41 M/uL (4.20-5.40); White Blood Count 10.53 K/ul (4.8-10.8)
[2023-05-23 06:48] LABS: BUN Creatinine Ratio 24.8 (10-20); Calcium 8.5 mg/dl (8.6-10.3); Creatinine Clr Calc Pharmacy 32.1 ml/min; Est GFR (African American) 25.2 ml/min; Est GFR (Non-African American) 21.7 ml/min; Potassium 4.7 mmol/L (3.5-5.1)
--- NOTE | 2023-05-23 07:46 | XRay Report ---
XR chest 1V not portable CLINICAL HISTORY: Chest pain, nonspecific COMPARISON STUDY: Chest radiograph February 09, 2015. FINDINGS: Old healed proximal right humeral fracture is noted. There is no pneumothorax. No significa nt pleural effusion. No evidence for pulmonary edema. Cardiac size is at the upper limits of normal. There is a calcified granuloma within the left upper lobe. IMPRESSION: No acute cardiopulmonary findings. ACT 112: Negative or not required by law. Electronically signed by: Luca Ny M.D. 05/23/2023 7:44 AM
[2023-05-23] MEDS ORDERED: ALBUMIN 25% 25 GM/100 ML VIAL IV SCH (08:00)
[2023-05-23] MEDS: VITAMIN B COMPLEX TAB PO SCH (09:51)
[2023-05-23] MEDS: FERROUS SULFATE 325 MG TAB PO SCH (09:51)
--- NOTE | 2023-05-23 10:55 | Nephrology Consultation ---
Date of Consultation May 23, 2023 Assessment & Plan (1) AXEL (acute kidney injury): stage 1 nonoliguric AXEL on CKD 3B w/ acceptable chemistries. > quantify protein - order in -diurese > recommend lasix 20 mg IV 0600, midday, 1800 >> but for today will start with lasix now, 1500, 1900 -will give 20 mEq K daily on lasix (2) CKD (chronic kidney disease) stage 3, GFR 30-59 ml/min: baseline 1.2-1.3. With protienuria and uncontrolle dHTN > favor OP nephro f/u in [place] near where she lives -look to start ACEI this admission or after d/c (3) Hypertensive urgency: goal BP is 130-150s -lasix as above to start -low sodium diet -f/u TTE -strange affect/ pressured speech > low threshold for psych eval if she agrees as HTN may have siutational component History of Present Illness Reason for Consultation: AXEL on CKD Requesting Physician: Dr Howard Attending Physician: Rohini Dee MD History of Present Illness 68 y/o F whom I'm asked to see for AXEL on CKD was admitted overnight for hypertensive urgency after presenting with about a week of worsening LE edema and noted to have SBP in the 170-190s for 4-5 hours. PMH of L breast cancer status post 2019 surgery/reconstruction/chemotherapy w/o evidence of further recurrence as of 03/2023, CRI (baseline creatinine 1.2-1.3), mood disorder not currently on meds, orthostatic hypotension as per records. Hospitalized 2013 for bipolar disorder/mick. Follows w/ Dr Nikolas Daugherty, last seen 03/2023. OP BP over past year run 140-160s systolic. her OP weight over the past year is 111-116 kg (weighs 121.6 kg here). JAMI suspected per admiting service adn hx gave. Pt endorses R flank/lower back pain . Tells me she took 2 aleve tablets for the flank pain and R sided RIOS priro to admission. denies dysuria/frequency, gross hematuria or other voiding concerns. Denies dyspnea and endorses stable chronic exertional dyspnea. cough orhtopnea or chest pain or paliptiations. no light headedness or dizziness; no falls. no diarrhea or n/v or abd pain reported to me. denies f/c. c/o R ear fullness and tinnitus She was treated w/ hydralazine and 20 mg IV lasix. SBP this am is 150-160s. TTE is pending. Allergies Allergy/AdvReac Type Severity Reaction Status Date / Time cephalexin Allergy Severe HIVES Verified 05/22/23 21:36 cefprozil Allergy Unknown UNKNOWN Verified 05/22/23 21:36 Home Medications Medication Instructions Recorded Confirmed Type cholecalciferol (vitamin D3) 50 50 mcg PO DAILY 05/22/23 05/22/23 History mcg (2,000 unit) tablet (Vitamin D3) coenzyme Q10 30 mg capsule 30 mg PO DAILY 05/22/23 05/22/23 History ferrous sulfate 325 mg (65 mg 325 mg PO DAILY 05/22/23 05/22/23 History iron) tablet (iron) iodine (kelp) 0.15 mg tablet (Kelp) 0 mcg PO DAILY 05/22/23 05/22/23 History vitamin B complex 1 tab PO DAILY 05/22/23 05/22/23 History Patient History Medical History (Updated 05/23/23 @ 11:21 by Svetlana Love MD, PhD) Acute schizophrenia Bipolar 1 disorder Breast cancer CKD (chronic kidney disease) stage 3, GFR 30-59 ml/min Class 3 obesity Surgical History No significant past surgical history Social History Smoking Status: Former smoker Second Hand Exposure: No; Do You Dip or Chew Tobacco: No; Hx Alcohol Use: No Hx Substance Use: No Preferred Language: Georgian Communication Ability: Effective 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 Beliefs That Will Affect Care: None marital status: Current Living Situation: Spouse current occupational status: retired Other Information That Helps Us Care for You: No Feels Safe at Home: Yes Safety Concerns: Feels Safe At This Time Assistive Devices: Glasses Review of Systems Review of Systems: All systems reviewed & are unremarkable except as noted in HPI & below Physical Exam Constitutional: well developed and well nourished Eyes: EOM intact bilaterally ENMT: Ears: no external ear abnormality Nose: no external nose abnormality Mouth: + dry oral mucous membranes Neck: no nuchal rigidity Respiratory: normal respiratory effort Auscultation: + diminished lung sounds Gastrointestinal (Abdomen): Inspection/Auscultation: normal bowel sounds Percussion/Palpation: abdomen soft; abdomen nontender Musculoskeletal: Extremities: strength 5/5 throughout Skin: no rashes, warm and dry Neurologic: haynes, fluent speech, no tremor Psychiatric: Orientation: alert, oriented to person and oriented to place Speech: + pressured speech Results & Data Vital Signs (Past 12 Hours) Vital Signs Temp Pulse Pulse Resp BP BP Pulse Ox 05/23/23 08:08 36.8 C 73 20 168/81 H 98 05/23/23 03:38 36.5 C 65 21 145/80 H 99 05/23/23 02:03 36.6 C 74 22 157/84 H 100 05/23/23 01:40 80 22 156/89 H 05/23/23 01:35 78 18 154/79 H 100 05/23/23 01:30 75 16 151/76 H 100 05/23/23 01:25 75 15 149/74 H 100 05/23/23 01:20 70 14 149/68 H 100 05/23/23 01:15 71 16 160/79 H 100 05/23/23 01:10 76 20 165/72 H 98 05/23/23 01:08 85 20 169/88 H 05/23/23 00:55 62 12 157/77 H 99 05/23/23 00:50 61 14 164/76 H 99 05/23/23 00:45 69 19 163/82 H 99 05/23/23 00:40 68 17 180/91 H 05/23/23 00:35 73 18 172/79 H 05/23/23 00:33 74 18 167/98 H 05/23/23 00:25 83 29 H 196/98 H 05/23/23 00:22 76 32 H 187/90 H 05/23/23 00:16 67 20 163/110 H 05/23/23 00:10 65 16 159/87 H 97 05/23/23 00:05 57 L 22 161/78 H 98 05/23/23 00:00 67 17 148/89 H 98 05/22/23 23:55 65 17 155/77 H 97 05/22/23 23:50 56 L 15 153/79 H 98 05/22/23 23:45 57 L 18 98 05/22/23 23:36 64 16 160/76 H 100 05/22/23 23:15 58 L 16 164/71 H 99 05/22/23 23:11 59 L 14 99 05/22/23 23:00 68 14 174/69 H 98 05/22/23 22:55 71 25 H 137/108 H 99 O2 Del Method 05/23/23 08:08 Room Air 05/23/23 03:38 Room Air 05/23/23 02:03 Room Air 05/23/23 01:40 05/23/23 01:35 05/23/23 01:30 05/23/23 01:25 05/23/23 01:20 05/23/23 01:15 05/23/23 01:10 05/23/23 01:08 05/23/23 00:55 05/23/23 00:50 05/23/23 00:45 05/23/23 00:40 05/23/23 00:35 05/23/23 00:33 05/23/23 00:25 05/23/23 00:22 05/23/23 00:16 05/23/23 00:10 05/23/23 00:05 05/23/23 00:00 05/22/23 23:55 05/22/23 23:50 05/22/23 23:45 05/22/23 23:36 05/22/23 23:15 05/22/23 23:11 05/22/23 23:00 05/22/23 22:55 Laboratory Results 05/23/23 06:04 05/23/23 06:[address] head, a/p, Dopplers, CXR reveiwed > no acut eprocess
[2023-05-23] MEDS ORDERED: FUROSEMIDE INJ 20 MG/2 ML VIAL IV STA (11:26)
[2023-05-23] MEDS: POTASSIUM CHLORIDE CRTAB 20 MEQ TABCR PO SCH (11:44)
[2023-05-23 13:34] LABS: Creatinine Urine Random 181.2 mg/dl
[2023-05-23 14:04] LABS: Total Protein Urine Random > 1000.0 mg/dl (0-11.9)
[2023-05-23] MEDS: HEPARIN SOD 5,000 UNIT/0.5 ML VIAL SQ SCH ×2 (14:22→20:31)
--- NOTE | 2023-05-23 14:29 | Communication Note ---
Date of Service: May 23, 2023 68 year old woman with PMH significant for recurrent breast cancer left status post surgery/reconstruction/chemotherapy, CRI (baseline creatinine 1.3), chronic anemia (baseline hemoglobin of 10), mood disorder, orthostatic hypotension as per records, difficult intubation who presents with bilateral leg swelling and frontal headache Patient is a poor historian and quite garrulous, occasionally tough to keep on track. Currently denies any headache, cough, SOB at rest. Reports chronic CORDOVA Exam notable for obese woman with extensive b/l LE edema Labs reviewed Patient has AXEL, hypertensive emergency Nephro recs appreciated Start lasix Stop albumin ordered on admission RN to consult psych liason BP is better controlled Continue carvedilol Other plans as detailed in H&P this morning
[2023-05-23] MEDS: FUROSEMIDE INJ 20 MG/2 ML VIAL IV SCH ×2 (16:06→19:54)
[2023-05-23] MEDS ORDERED: MELATONIN 3 MG TAB PO PRN (20:26)
[2023-05-23] MEDS: carvediloL 3.125 MG TAB PO SCH (20:31)
[2023-05-24 06:14] LABS: Hematocrit (blood only) 28.4 % (37.0-47.0); Hemoglobin 9.2 g/dl (12.0-16.0); Mean Corpuscular Hemoglobin 28.9 pg (25.0-34.0); Mean Corpuscular Hgb Conc 32.4 g/dL (32.0-36.0); Mean Corpuscular Volume 89.3 fL (80.0-100.0); Mean Platelet Volume 10.3 fL (9.4-12.4); Platelet Count 310 K/uL (130-400); RDW Coefficient of Variation 14.8 % (11.5-14.5); RDW Standard Deviation 48.2 fL (36.4-46.3); Red Blood Count 3.18 M/uL (4.20-5.40); White Blood Count 8.89 K/ul (4.8-10.8)
[2023-05-24] MEDS: FUROSEMIDE INJ 20 MG/2 ML VIAL IV SCH ×3 (06:24→17:25)
[2023-05-24] MEDS: HEPARIN SOD 5,000 UNIT/0.5 ML VIAL SQ SCH ×3 (06:24→20:47)
[2023-05-24 06:36] LABS: Albumin Globulin Ratio 1.2 (0.9-2); Albumin Level 3.5 gm/dl (3.4-5.0); Bilirubin,Total 0.3 mg/dl (0.2-1.0); Calcium 8.4 mg/dl (8.6-10.3); Creatinine Clr Calc Pharmacy 29.3 ml/min; Est GFR (African American) 22.3 ml/min; Est GFR (Non-African American) 19.2 ml/min; Globulin 2.9 gm/dl (2.5-4.0); Magnesium 2.4 mg/dl (1.7-2.4); Phosphorus 4.7 mg/dl (2.5-4.9); Potassium 4.7 mmol/L (3.5-5.1); Total Protein 6.4 gm/dl (6.0-8.3)
--- NOTE | 2023-05-24 06:37 | Electrocardiogram Report ---
Test Reason : Blood Pressure : / mmHG Vent. Rate : 055 BPM Atrial Rate : 055 BPM P-R Int : 182 ms QRS Dur : 076 ms QT Int : 406 ms P-R-T Axes : 048 021 040 degrees QTc Int : 388 ms Sinus bradycardia with sinus arrhythmia Otherwise normal ECG When compared with ECG of 09-FEB-2015 16:43, No significant change was found Confirmed by Anant Bradley ([id number]) on 05/24/2023 6:37:21 AM Referred By: REFERRED SELF Confirmed By:Anant Bradley
[2023-05-24] MEDS: POTASSIUM CHLORIDE CRTAB 20 MEQ TABCR PO SCH (07:51)
[2023-05-24] MEDS: VITAMIN B COMPLEX TAB PO SCH (07:51)
[2023-05-24] MEDS: FERROUS SULFATE 325 MG TAB PO SCH (07:51)
[2023-05-24] MEDS: carvediloL 3.125 MG TAB PO SCH ×2 (07:51→20:48)
--- NOTE | 2023-05-24 10:59 | Nephrology Progress Note ---
Date of Service May 24, 2023 Assessment & Plan (1) AXEL (acute kidney injury): Plan: stage 1 nonoliguric AXEL on CKD 3B w/ acceptable chemistries. > quantify protein - order in -Continue Lasix as 20 mg 3 times daily -Maintain euvolemia (2) CKD (chronic kidney disease) stage 3, GFR 30-59 ml/min: Plan: baseline 1.2-1.3. With protienuria and uncontrolle dHTN > favor OP nephro f/u in [place] near where she lives -look to start ACEI this admission or after d/c - renal immunology screen (3) Hypertensive urgency: Plan: goal BP is 130-150s -Blood pressure not at goal -Add hydralazine 50 mg 3 times daily, continue on carvedilol and furosemide -low sodium diet -f/u TTE Admission and Anticipated Discharge Date Admission Date: May 23, 2023 Subjective Comfortable, pleasant Pedal edema has improved Review of Systems Review of Systems: All systems reviewed & are unremarkable except as noted in HPI & below Physical Exam Physical Exam: Constitutional: Alert, cooperative and in no distress. He is resting in bed. HEENT: Unremarkable Neck: No jugular venous distention, carotid pulses are normal and equal bilaterally without bruits. Pulmonary: Clear to auscultation bilaterally. Cardiac: Regular rhythm with no murmur, gallop or rub. Abdomen: Soft, mild right upper quadrant tenderness with normal bowel sounds. Extremities: Trace to 1+edema. Distal pulses intact. Results & Data Vital Signs (Past 12 Hours) Vital Signs Temp Pulse Resp BP Pulse Ox O2 Del Method 05/24/23 07:55 37.0 C 62 20 177/86 H 98 Room Air 05/24/23 03:00 36.7 C 68 18 175/73 H 97 Room Air 05/23/23 23:00 36.5 C 68 20 172/81 H 96 Room Air Laboratory Results 05/24/23 05:25 05/24/23 05:25
[2023-05-24] MEDS: hydrALAZINE TAB 50 MG TAB PO SCH ×3 (11:15→20:48)
--- NOTE | 2023-05-24 11:16 | Hospitalist Progress Note ---
Date of Service May 24, 2023 Assessment & Plan (1) Hypertensive emergency: (2) Bilateral edema of lower extremity: (3) AXEL (acute kidney injury): (4) Breast cancer: Plan Presented with headache and bilateral leg swelling BP was up to 201/103 on presentation CXR did not show any acute abnormalities CT head did not show any acute abnormalities CT abd/P noted subtle subcut fat stranding and edema in superficial soft itiss of pelvis, trace b/l pleural effusion Dopplers LE negative for DVT Labs on admission notable for Hb of 10.6 (chronic anemia), Cr of 2.3 (had been 1.2-1.3 in the past year) Being managed for Hypertensive emergency, AXEL Headache resolved with improving BP Continue coreg 3.125 bid. Will not increase dose as HR running low 60s Discussed with Irrigator Valve Pipe and started hydralazine 50mg TID. May be increased to QID if needed Continue IV lasix TTE showed EF of 55-60, mild conc LVH, Gi DD, no significant valvular disease Urine studies show significant proteinuria Work up ordered including GISELA, ANCA, cryo, C3/C4, RF, sFLC, UPEP, SPEP, uFLC, Hep B/C, HIV Updated patient about these. Morbid obesity Counselled on need for weight loss and lifestyle modification Will need outpatient sleep study due to concerns reported to admitting provider by [facility] DVT prophylaxis. Heparin subcu Full code Patient requesting updates from providers. Mr. Laureano Garcia, contact #[phone]. I spent a total of 50 minutes coordinating, documenting and providing care for this patient excluding time spent in performance of separately billed services Admission and Anticipated Discharge Date Admission Date: May 23, 2023 Subjective Patient seen and examined Denied any new complaints. Reports feeling better today Still has leg swelling Reports chronic CORDOVA, none at rest Denied chest pain, cough, fever, chills, nausea, vomiting, dysuria, freq, urgency Denied SI/HI Physical Exam Constitutional: + well hydrated and + obese; no acute distress Eyes: PERRL, conjunctivae normal, anicteric sclerae ENMT: external ear and nose normal, oropharynx normal Respiratory: normal respiratory effort, lungs clear to auscultation Cardiovascular: Rate/Rhythm: regular rate and regular rhythm S1 S2 Gastrointestinal (Abdomen): normal bowel sounds, soft, nontender, no hepa tosplenomegaly Musculoskeletal: Bilateral pedal edema Neurologic: PERRL, EOMI, accommodation nl, no face palsy, no dysarthria Psychiatric: A+Ox3, euthymic affect Results & Data Results & Data Vital Signs (Past 12 Hours) Vital Signs Temp Pulse Pulse Resp BP Pulse Ox O2 Del Method 05/24/23 11:00 52 L 05/24/23 07:55 37.0 C 62 20 177/86 H 98 Room Air 05/24/23 03:00 36.7 C 68 18 175/73 H 97 Room Air Laboratory Results Abnormal lab results 05/24/23 05/24/23 05/24/23 Range/Units 05:25 05:25 11:55 RBC 3.18 L (4.20-5.40) M/uL Hgb 9.2 L (12.0-16.0) g/dl Hct 28.4 L (37.0-47.0) % RDW Std Deviation 48.2 H (36.4-46.3) fL RDW Coeff of Seth 14.8 H (11.5-14.5) % Chloride 110 H (98-107) mmol/L BUN 60 H (6-23) mg/dl Creatinine 2.50 H (0.6-1.2) mg/dl BUN/Creatinine Ratio 24.0 H (10-20) Calcium 8.4 L (8.6-10.3) mg/dl U Random Total Protein 431.9 H (0-11.9) mg/dl Protein/Creatinin Ratio 7.2 H (0-0.2)
[2023-05-24 12:49] LABS: Creatinine Urine Random 59.9 mg/dl; Protein Creatinine Ratio Urine 7.2 (0-0.2); Total Protein Urine Random 431.9 mg/dl (0-11.9)
[2023-05-24] MEDS ORDERED: hydrALAZINE TAB 50 MG TAB PO SCH (14:00)
[2023-05-24 18:28] LABS: Adenovirus F 40/41 PCR Not Detected (NotDetected); Astrovirus PCR Not Detected (NotDetected); Campylobacter PCR Not Detected (NotDetected); Cryptosporidium PCR Not Detected (NotDetected); Cyclospora cayetanensis PCR Not Detected (NotDetected); Entamoeba histolytica PCR Not Detected (NotDetected); Enteroaggregative E.coli(EAEC) Not Detected (NotDetected); Enteropathogenic E.coli (EPEC) Not Detected (NotDetected); Enterotoxigenic E.coli (ETEC) Not Detected (NotDetected); Giardia lamblia PCR Not Detected (NotDetected); Norovirus GI/GII PCR Not Detected (NotDetected); Plesiomonas shigelloides PCR Not Detected (NotDetected); Rotavirus A PCR Not Detected (NotDetected); Salmonella PCR Not Detected (NotDetected); Sapovirus PCR Not Detected (NotDetected); Shiga-like Toxin E.coli (STEC) Not Detected (NotDetected); Shigella/Enteroinvasive E.coli Not Detected (NotDetected); Vibrio cholerae PCR Not Detected (NotDetected); Vibrio species PCR Not Detected (NotDetected); Yersinia enterocolitica PCR Not Detected (NotDetected)
[2023-05-25] MEDS: HEPARIN SOD 5,000 UNIT/0.5 ML VIAL SQ SCH ×3 (04:58→21:07)
[2023-05-25] MEDS: FUROSEMIDE INJ 20 MG/2 ML VIAL IV SCH (04:58)
[2023-05-25 06:13] LABS: Hematocrit (blood only) 29.5 % (37.0-47.0); Hemoglobin 9.7 g/dl (12.0-16.0); Mean Corpuscular Hemoglobin 28.3 pg (25.0-34.0); Mean Corpuscular Hgb Conc 32.9 g/dL (32.0-36.0); Mean Platelet Volume 10.4 fL (9.4-12.4); Platelet Count 334 K/uL (130-400); RDW Standard Deviation 46.6 fL (36.4-46.3); Red Blood Count 3.43 M/uL (4.20-5.40); White Blood Count 10.66 K/ul (4.8-10.8)
[2023-05-25 06:29] LABS: BUN Creatinine Ratio 29.7 (10-20); Calcium 8.5 mg/dl (8.6-10.3); Creatinine Clr Calc Pharmacy 33.5 ml/min; Est GFR (African American) 26.2 ml/min; Est GFR (Non-African American) 22.6 ml/min; Magnesium 2.3 mg/dl (1.7-2.4); Phosphorus 4.2 mg/dl (2.5-4.9); Potassium 4.7 mmol/L (3.5-5.1)
[2023-05-25] MEDS: FERROUS SULFATE 325 MG TAB PO SCH (07:56)
[2023-05-25] MEDS: carvediloL 3.125 MG TAB PO SCH ×2 (07:56→21:09)
[2023-05-25] MEDS: VITAMIN B COMPLEX TAB PO SCH (07:56)
[2023-05-25] MEDS: hydrALAZINE TAB 50 MG TAB PO SCH ×3 (07:56→21:09)
[2023-05-25] MEDS: POTASSIUM CHLORIDE CRTAB 20 MEQ TABCR PO SCH (07:56)
[2023-05-25] MEDS ORDERED: TORSEMIDE 10 MG TAB PO ONE (11:15)
--- NOTE | 2023-05-25 11:26 | Nephrology Progress Note ---
Date of Service May 25, 2023 Assessment & Plan (1) AXEL (acute kidney injury): Plan: stage 1 nonoliguric AXEL on CKD 3B w/ acceptable chemistries. - Improving > quantify protein - order in -Continue Lasix as 20 mg 3 times daily -Maintain euvolemia (2) CKD (chronic kidney disease) stage 3, GFR 30-59 ml/min: Plan: baseline 1.2-1.3. With protienuria and uncontrolle dHTN > favor OP nephro f/u in [place] near where she lives -look to start ACEI this admission or after d/c - renal immunology screen (3) Hypertensive urgency: Plan: goal BP is 130-150s -Blood pressure not at goal - hydralazine 50 mg 3 times daily, continue on carvedilol, convert furosemide to torsemide 60 mg daily. -low sodium diet -f/u TTE Admission and Anticipated Discharge Date Admission Date: May 23, 2023 Subjective Comfortable,Denied any new complaints. Reports feeling better today Still has leg swelling Reports chronic CORDOVA, none at rest Denied chest pain, cough, fever, chills, nausea, vomiting, dysuria, freq, urgency Review of Systems Review of Systems: All systems reviewed & are unremarkable except as noted in HPI & below Physical Exam Physical Exam: Constitutional: Alert, cooperative and in no distress. He is resting in bed. HEENT: Unremarkable Neck: No jugular venous distention, carotid pulses are normal and equal bilaterally without bruits. Pulmonary: Clear to auscultation bilaterally. Cardiac: Regular rhythm with no murmur, gallop or rub. Abdomen: Soft, mild right upper quadrant tenderness with normal bowel sounds. Extremities: Trace to 1+edema. Distal pulses intact. Results & Data Vital Signs (Past 12 Hours) Vital Signs Temp Pulse Pulse Pulse Resp BP Pulse Ox 05/25/23 08:00 63 05/25/23 08:00 36.6 C 66 20 135/84 97 05/25/23 03:52 36.4 C L 72 16 138/76 97 05/24/23 23:37 36.5 C 66 16 141/82 H 97 O2 Del Method 05/25/23 08:00 05/25/23 08:00 Room Air 05/25/23 03:52 Room Air 05/24/23 23:37 Room Air Laboratory Results 05/25/23 05:29 05/25/23 05:29
--- NOTE | 2023-05-25 11:36 | Hospitalist Progress Note ---
Date of Service May 25, 2023 Assessment & Plan (1) Hypertensive emergency: (2) Bilateral edema of lower extremity: (3) AXEL (acute kidney injury): (4) Breast cancer: Plan Presented with headache and bilateral leg swelling BP was up to 201/103 on presentation CXR did not show any acute abnormalities CT head did not show any acute abnormalities CT abd/P noted subtle subcut fat stranding and edema in superficial soft itiss of pelvis, trace b/l pleural effusion Dopplers LE negative for DVT Labs on admission notable for Hb of 10.6 (chronic anemia), Cr of 2.3 (had been 1.2-1.3 in the past year) TTE showed EF of 55-60, mild conc LVH, Gi DD, no significant valvular disease Urine studies show significant proteinuria Being managed for Hypertensive emergency, AXEL, proteinuria Headache resolved with improved BP Continue coreg 3.125 bid. Discussed with Toe Sewer. Continue po hydralazine Switch iv lasix today to torsemide. Continue po torsemide 60mg daily from tomorrow Patient will need ACEI/ARB at some point with her proteinuria once renal function improves Work up ordered including GISELA, ANCA, cryo, C3/C4, RF, sFLC, UPEP, SPEP, uFLC pending Morbid obesity Counselled on need for weight loss and lifestyle modification Will need outpatient sleep study due to concerns reported to admitting provider by [facility] DVT prophylaxis. Heparin subcu Full code Patient requesting updates from providers. Mr. Laureano Garcia, contact #[phone]. I called and updated him I spent a total of 45 minutes coordinating, documenting and providing care for this patient excluding time spent in performance of separately billed services Admission and Anticipated Discharge Date Admission Date: May 23, 2023 Subjective Patient seen and examined Has no new complaints Physical Exam Constitutional: + well hydrated and + obese; no acute distress Eyes: PERRL, conjunctivae normal, anicteric sclerae ENMT: external ear and nose normal, oropharynx normal Respiratory: normal respiratory effort, lungs clear to auscultation Cardiovascular: Rate/Rhythm: regular rate and regular rhythm S1 S2 Gastrointestinal (Abdomen): normal bowel sounds, soft, nontender, no hepatosplenomegaly Musculoskeletal: +pedal edema (much improved) Neurologic: PERRL, EOMI, accommodation nl, no face palsy, no dysarthria Psychiatric: A+Ox3, euthymic affect Results & Data Results & Data Vital Signs (Past 12 Hours) Vital Signs Temp Pulse Pulse Pulse Resp BP Pulse Ox 05/25/23 08:00 63 05/25/23 08:00 36.6 C 66 20 135/84 97 05/25/23 03:52 36.4 C L 72 16 138/76 97 05/24/23 23:37 36.5 C 66 16 141/82 H 97 O2 Del Method 05/25/23 08:00 05/25/23 08:00 Room Air 05/25/23 03:52 Room Air 05/24/23 23:37 Room Air Laboratory Results Abnormal lab results 05/25/23 05/25/23 05/25/23 Range/Units 05:29 05:29 12:00 RBC 3.43 L (4.20-5.40) M/uL Hgb 9.7 L (12.0-16.0) g/dl Hct 29.5 L (37.0-47.0) % RDW Std Deviation 46.6 H (36.4-46.3) fL RDW Coeff of Seth 15.0 H (11.5-14.5) % Chloride 110 H (98-107) mmol/L BUN 65 H (6-23) mg/dl Creatinine 2.19 H D (0.6-1.2) mg/dl BUN/Creatinine Ratio 29.7 H (10-20) Calcium 8.5 L (8.6-10.3) mg/dl Ur Total Protein 24 Hr 6425.3 H (0-149.1) mg/24 Hr
[2023-05-25 12:56] LABS: Total Protein 24 Hour Urine 6425.3 mg/24 Hr (0-149.1); Urine Total Protein 450.9 mg/dl
[2023-05-25] MEDS ORDERED: LORazepam 0.5 MG TAB PO ONE (20:00)
[2023-05-26] MEDS: HEPARIN SOD 5,000 UNIT/0.5 ML VIAL SQ SCH ×2 (05:51→14:46)
[2023-05-26 06:20] LABS: Hemoglobin 10.1 g/dl (12.0-16.0); Mean Corpuscular Hemoglobin 28.8 pg (25.0-34.0); Mean Corpuscular Hgb Conc 32.6 g/dL (32.0-36.0); Mean Corpuscular Volume 88.3 fL (80.0-100.0); Mean Platelet Volume 10.1 fL (9.4-12.4); Platelet Count 369 K/uL (130-400); RDW Standard Deviation 48.3 fL (36.4-46.3); Red Blood Count 3.51 M/uL (4.20-5.40); White Blood Count 11.54 K/ul (4.8-10.8)
[2023-05-26 06:38] LABS: BUN Creatinine Ratio 27.8 (10-20); Calcium 8.7 mg/dl (8.6-10.3); Creatinine Clr Calc Pharmacy 27.6 ml/min; Est GFR (African American) 20.7 ml/min; Est GFR (Non-African American) 17.8 ml/min; Magnesium 2.3 mg/dl (1.7-2.4); Phosphorus 4.7 mg/dl (2.5-4.9); Potassium 4.5 mmol/L (3.5-5.1)
[2023-05-26 08:06] LABS: Estimated Average Glucose 123 mg/dl; Hemoglobin A1C 5.9 % (4.5-5.6)
[2023-05-26] MEDS: hydrALAZINE TAB 50 MG TAB PO SCH ×2 (08:43→14:31)
[2023-05-26] MEDS: VITAMIN B COMPLEX TAB PO SCH (08:43)
[2023-05-26] MEDS: carvediloL 3.125 MG TAB PO SCH (08:43)
[2023-05-26] MEDS: FERROUS SULFATE 325 MG TAB PO SCH (08:44)
[2023-05-26] MEDS: POTASSIUM CHLORIDE CRTAB 20 MEQ TABCR PO SCH (08:44)
[2023-05-26] MEDS ORDERED: TORSEMIDE 10 MG TAB PO SCH (09:00)
--- NOTE | 2023-05-26 11:23 | Nephrology Progress Note ---
Date of Service May 26, 2023 Assessment & Plan Admission and Anticipated Discharge Date Admission Date: May 23, 2023 Subjective Assessment & Plan (1) AXEL (acute kidney injury) vs Sub acute Plan: 6 gm proteinuria--serology pending. (2) CKD (chronic kidney disease) stage 3, GFR 30-59 ml/min: Plan: baseline 1.2-1.3. With protienuria and uncontrolle dHTN > favor OP nephro f/u in [place] near where she lives. Look to start ACEI after d/c Renal immunology screen--all done and pending. (3) Hypertensive urgency: Plan:goal BP is 130-150s -Blood pressure not quite at goal but close enough. hydralazine 50 mg 3 times daily, continue on carvedilol, torsemide 60 mg daily. -low sodium diet -f/u TTE Ok to discharge. D/w primary team. Subjective Comfortable,Denied any new complaints. Reports feeling better today Still has lot of leg swelling Reports chronic CORDOVA, none at rest Denied chest pain, cough, fever, chills, nausea, vomiting, dysuria, freq, urgency Review of Systems Review of Systems: All systems reviewed & are unremarkable except as noted in HPI & below Physical Exam Physical Exam: Constitutional: Alert, cooperative and in no distress. He is resting in bed. HEENT: Unremarkable Neck: No jugular venous distention, carotid pulses are normal and equal bilaterally without bruits. Pulmonary: Clear to auscultation bilaterally. Cardiac: Regular rhythm with no murmur, gallop or rub. Abdomen: Soft, mild right upper quadrant tenderness with normal bowel sounds. Extremities: 2+edema. Distal pulses intact. Results & Data Vital Signs (Past 12 Hours) Vital Signs Temp Pulse Pulse Resp BP Pulse Ox O2 Del Method 05/26/23 09:00 77 05/26/23 08:00 74 18 157/85 H 98 Room Air 05/26/23 03:27 36.3 C L 71 18 143/82 H 98 Room Air
--- NOTE | 2023-05-26 12:31 | Discharge Summary ---
Date of Service May 26, 2023 Admission HPI Per Admitting Provider History obtained from patient, family, and records. Medical history significant for recurrent breast cancer left status post surgery/reconstruction/chemotherapy, CRI (baseline creatinine 1.3), chronic anemia (baseline hemoglobin of 10), mood disorder, orthostatic hypotension as per records, difficult intubation as per records. Last confinement 2013 under Psychiatry service for bipolar disorder/mick. 2 days ago, patient noted increased bilateral leg swelling with unquantified weight gain. Patient took 2 Aleve tablets for pain. Achy headache symptoms. No chest pain. Usual shortness of breath worse on exertion. Some abdominal discomfort. No fever, no chills. Patient thinks patient may have sleep apnea given witnessed snoring symptoms and possible apnea during sleep. Patient brought to the ER for evaluation. Highest SBP at the ER 200s. Hydralazine and Lasix administered at the ER. Medical History as above Surgical History : Breast biopsy, breast reconstruction with TRAM flap, lymph node biopsy, dental surgery, port placement, cholecystectomy, bilateral mastectomy, partial hysterectomy, tonsillectomy Family History : Heart disease, hypertension Personal/Social history : Non-smoker, no EtOH intake, helps 's [employer] Admission Exam Per Admitting Provider GENERAL: Slightly uncomfortable, morbidly obese, unkempt, no respiratory distress SKIN: Pallor, warm HEENT: Pale palpebral conjunctivae, no ptosis, dry buccal mucosa NECK : Supple, short neck, no tenderness CHEST : Decreased breath sounds, no tenderness HEART : RRR, no obvious murmurs ABDOMEN: Some distention, nontender EXTREMITIES : Bilateral LE swelling, no LE tenderness, no other conspicuous deformities noted NEUROLOGIC : Coherent, no facial asymmetry, no other gross focality Principal Diagnosis Hypertensive emergency Acute Kidney Injury Proteinuria Discharge Exam Constitutional + well hydrated and + obese; no acute distress Eyes PERRL, conjunctivae normal, anicteric sclerae ENMT external ear and nose normal, oropharynx normal Respiratory normal respiratory effort, lungs clear to auscultation Cardiovascular Rate/Rhythm: regular rate and regular rhythm S1 S2 Gastrointestinal (Abdomen) normal bowel sounds, soft, nontender, no hepatosplenomegaly Musculoskeletal +pedal edema Neurologic PERRL, EOMI, accommodation nl, no face palsy, no dysarthria Psychiatric A+Ox3, euthymic affect Discharge Data Allergies Allergy/AdvReac Type Severity Reaction Status Date / Time cephalexin Allergy Severe HIVES Verified 05/22/23 21:36 cefprozil Allergy Unknown UNKNOWN Verified 05/22/23 21:36 Consultations 05/22/23 22:30 ED Decision to Admit Stat 05/23/23 02:13 Consult Nephrology Routine 05/23/23 12:21 Consult Behavioral Health Liaison Routine Ordered Studies 05/22/23 18:39 US venous doppler LE BI Stat 05/22/23 21:27 CT abd pelvis wo con Stat 05/22/23 22:59 CT head/brain wo con Stat Hospital Course (1) Hypertensive emergency: (2) Bilateral edema of lower extremity: (3) AXEL (acute kidney injury): (4) Breast cancer: Plan Presented with headache and bilateral leg swelling BP was up to 201/103 on presentation CXR did not show any acute abnormalities CT head did not show any acute abnormalities CT abd/P noted subtle subcut fat stranding and edema in superficial soft tissue of pelvis, trace b/l pleural effusion Dopplers LE negative for DVT Labs on admission notable for Hb of 10.6 (chronic anemia), Cr of 2.3 (had been 1.2-1.3 in the past year) TTE showed EF of 55-60, mild conc LVH, Gi DD, no significant valvular disease Urine studies show significant proteinuria Was managed for Hypertensive emergency, AXEL, proteinuria Headache resolved with improved BP Was discharged on coreg 3.125mg bid, hydralazine 50mg TID and Torsemide 60mg daily Patient may need ACEI/ARB at some point in the future with her proteinuria once renal function improves/on follow up with Nephrology Work up ordered including GISELA, ANCA, cryo, C3/C4, RF, sFLC, UPEP, SPEP, uFLC pending Prediabetes HbA1c of 5.9 Morbid obesity Counselled on need for weight loss and lifestyle modification PCP can arrange outpatient sleep study due to concerns reported to admitting provider by Called and updated him on the plans Total Time Total Time Spent Total Time Spent (In Minutes): 55 Total Time Includes: Examination of the Patient, Discharge Planning, Medication Reconciliation, Communication With Other Providers and Other Discharge Plan Discharge Items Patient Disposition: Home - Self-Care Reason For Visit: Leg swelling Discharge Diagnosis: Hypertensive emergency Acute Kidney Injury Activity: Resume your previous activity Non-emergency contact: Primary Care Provider and Fashion Model Call non-emergency contact if: you have any medication questions and your symptoms worsen Follow-up/Referrals: Anthony Costello DO [Primary Care Provider] - 05/29/23 8:20 am Marylou Andino MD [Physician] - (Date & Time 06/25/2023 11:20 AM Provider Marylou Andino MD Department Nephrology, [place] ) Diet: Heart Healthy and Low Sodium (2gm) Fluids: 2000ml (8 cups) Addtl Attending Provider Instructions: Mrs Ontiveros You came to the hospital complaining of leg swelling. You were evaluated and found to have elevated blood pressure and acute kidney failure. You are started on a couple of new medications. Please ensure you take them as prescribed. Please ensure follow up with family doctor and Nephrology. It was a pleasure taking care of you. Pending Studies at Discharge: Yes Stand-Alone Forms: [facility], Smoking Cessation Medications and DC Order Prescriptions: New carvedilol 3.125 mg Tablet 3.125 mg PO BID Qty: 60 0RF hydralazine 50 mg Tablet 50 mg PO TID Qty: 90 0RF torsemide 20 mg tablet 60 mg PO DAILY Qty: 90 0RF Continued ferrous sulfate [iron] 325 mg (65 mg iron) Tablet 325 mg PO DAILY vitamin B complex Tablet 1 tab PO DAILY coenzyme Q10 30 mg Capsule 30 mg PO DAILY cholecalciferol (vitamin D3) [Vitamin D3] 50 mcg (2,000 unit) Tablet 50 mcg PO DAILY Discontinued Kelp 0.15 mg Tablet 0 mcg PO DAILY Discharge Orders: Discharge Order (Routine); Ordered 05/26/23 Ordered By: Rohini Shelby/Other Patient Handouts: Low-Salt Choices, High Blood Pressure Risk Factors, Taking a Diuretic, ED Leg Swelling in Both Legs Admission Data Admit Date/Time: 05/23/23 00:43 Attending Provider: Rohini Dee I. Admit Provider: Cam Howard Primary Care Provider: Anthony Costello Other Providers: Nikolas Daugherty ; Cam Howard ; Svetlana Love ; James Dasilva ; Margarita Avendano Japheth E. ; Marylou Andino ; Chary Gilman Other Interventions: Discharge Summary Assessment (RN) Last Done: 05/26/23 13:46
== END 2023-05-26 16:16 | disposition home or self-care (01) | DRG 305 ==
LOC: ED 18:22 → 4W 05-23 00:43

== ENCOUNTER 2023-10-21 17:47 | Observation (INO) ==
[2023-10-21 19:19] LABS: Hematocrit (blood only) 36.8 % (37.0-47.0); Hemoglobin 12.1 g/dl (12.0-16.0); Mean Corpuscular Hemoglobin 28.9 pg (25.0-34.0); Mean Corpuscular Hgb Conc 32.9 g/dL (32.0-36.0); Mean Corpuscular Volume 87.8 fL (80.0-100.0); Mean Platelet Volume 9.8 fL (9.4-12.4); Platelet Count 483 K/uL (130-400); RDW Coefficient of Variation 14.5 % (11.5-14.5); RDW Standard Deviation 46.2 fL (36.4-46.3); Red Blood Count 4.19 M/uL (4.20-5.40); White Blood Count 25.34 K/ul (4.8-10.8)
[2023-10-21 19:46] LABS: Basophils # (auto) 0.08 K/uL (0.00-0.20); Basophils % (auto) 0.3 %; Eosinophils # (auto) 0.01 K/uL (0.00-0.50); Immature Granulocytes % (auto) 0.8 %; Lymphocytes # (auto) 0.91 K/uL (1.20-3.40); Lymphocytes % (auto) 3.6 %; Monocytes # (auto) 1.07 K/uL (0.11-0.59); Monocytes % (auto) 4.2 %; Neutrophils # (auto) 23.07 K/uL (1.40-6.50); Neutrophils % (auto) 91.1 %
[2023-10-21 19:56] LABS: Partial Thromboplastin Ratio 1.1; Partial Thromboplastin Time 30 Seconds (21-31); Prothrombin Time 11.4 Seconds (9.0-12.0)
[2023-10-21 20:02] LABS: Alanine Aminotransferase 12 U/L (7-52); Albumin Globulin Ratio 1.1 (0.9-2); Albumin Level 4.6 gm/dl (3.4-5.0); Alkaline Phosphatase 63 U/L (34-104); Anion Gap 11 (3-11); BUN Creatinine Ratio 10.9 (10-20); Bilirubin,Total 0.7 mg/dl (0.2-1.0); Blood Urea Nitrogen 17 mg/dl (6-23); Calcium 10.2 mg/dl (8.6-10.3); Carbon Dioxide 27 mmol/L (21-32); Chloride 98 mmol/L (98-107); Est GFR (African American) 39.4 ml/min; Globulin 4.2 gm/dl (2.5-4.0); Glucose 111 mg/dl (70-99(Fasting)); Sodium 136 mmol/L (136-145); Total Protein 8.8 gm/dl (6.0-8.3)
[2023-10-21 20:03] LABS: Aspartate Aminotransferase 24 U/L (13-39); Potassium 4.2 mmol/L (3.5-5.1)
--- NOTE | 2023-10-21 20:12 | XRay Report ---
SINGLE VIEW CHEST CLINICAL HISTORY: Lower extremity edema FINDINGS: An AP, portable, upright chest radiograph is compared to study dated 05/22/2023. The cardiome diastinal silhouette is top normal for projection. The pulmonary vasculature is noncongested. Chronic interstitial thickening similar to previous. Calcified granulomas are again noted. There is bibasila r scarring/atelectasis. No airspace consolidation or large pleural effusion is identified. No pneumot horax is seen. The skeletal structures are osteopenic. There is chronic posttraumatic deformity of th e right proximal humerus. An indeterminate 6.5 linear radiodensity projects over the right upper ches t. IMPRESSION: 1. No acute cardiopulmonary abnormality. 2. An indeterminate 6.5 cm linear radiodensity projecting over the upper chest may be external to the patient. A foreign body would be impossible to exclude. Correlate clinically. ACT 112: Negative or not required by law. Electronically signed by: Sage Luther M.D. 10/21/2023 8:10 PM
--- NOTE | 2023-10-21 22:13 | Emergency Department Note ---
Impression & Plan Edema, Acute pain of right foot ED Provider Note CHIEF COMPLAINT: Edema and pain in the bilateral feet HISTORY OF PRESENT ILLNESS: This 68-year-old female patient presents to the emergency department via private vehicle for evaluation of edema and pain in the bilateral feet. The patient states that symptoms started this morning. [place] She had severe pain and some weakness which was making it difficult for her to go down the stairs this morning. She notes that she does have CKD and is on torsemide daily. She denies any recent fever or illness. She did have 1 episode of vomiting this morning. Patient denies any fever or recent illness. No cough or congestion. Patient states since being in the emergency department, she has urinated several times and has had her feet elevated. She states that the swelling and pain seem to be improving. She notes that the pain changes from 1 foot to the other. REVIEW OF SYSTEMS: A 10 system review of systems was performed with positives and pertinent negatives listed in the history of present illness. All other systems were reviewed and are negative. ALLERGIES: Cephalexin, cefprozil PHYSICAL EXAM: VITALS: Vitals are noted on the nurse's note and reviewed by myself. Vital signs stable. GENERAL: This is a 68 year old female, in no acute distress, nondiaphoretic, well-developed well-nourished. SKIN: Nonpitting edema of the bilateral feet. There is significant tenderness to palpation of the right foot. There is may be faint erythema on the lateral aspect of the right foot, but this is not well-demarcated the skin was without rashes, erythema, edema, or bruising. There is no tenting of the skin. Capillary refill less than 2 seconds. HEAD: Normocephalic atraumatic. EYES: Conjunctivae without injection, sclerae without icterus. MOUTH: Mucous membranes moist. Tonsils are not enlarged. Airway patent. Tongue does not deviate. NECK: Supple without nuchal rigidity. No lymphadenopathy. No JVD. HEART: Regular rate and rhythm without murmurs gallops or rubs. LUNGS: Clear to auscultation bilaterally without wheezes, rales or rhonchi. No retractions or accessory muscle use. ABDOMEN: Positive bowel sounds x 4. Soft, nontender, without masses or organomegaly. Desai sign negative. No guarding or rebound tenderness. MUSCULOSKELETAL: No muscle atrophy, erythema, or edema noted. Full range of motion without joint tenderness in all extremities. No tenderness to palpation. Normal gait. Strength 5/5 throughout. NEURO: Patient was alert and oriented to person place and time. No focal neurological deficits. An order was placed for continuous personnel monitor. The monitor showed a normal sinus rhythm at a ventricular rate of 84 bpm, per my interpretation. EKG, per my interpretation: Normal sinus rhythm with a ventricular rate of [address] elevation or depression. No T wave inversion. Ventricular rate has increased by 30 bpm when compared EKG from 05/22/2023 EMERGENCY DEPARTMENT COURSE: The patient was seen and evaluated as above. Initial orders were placed by triage/nursing staff.I reviewed labs/imaging studies. There was a leukocytosis of 25,000. No concerning anemia or thrombocytopenia. Renal, hepatic function and electrolytes without significant abnormality. Magnesium 1.6. I did add on BNP and troponin testing. These were within normal range. Chest x-ray without acute abnormalities. I discussed findings with my attending physician. He did see and evaluate the patient Recommendation made to admit the patient due to severe right foot pain, ambulatory dysfunction, and leukocytosis. I discussed the case with Dr. Howard, [facility] hospitalist physician. He did agree to see and evaluate the patient for admission. Please see hospitalist dictation regarding ongoing management care of this patient Differential diagnosis includes DVT, musculoskeletal, infection, joint effusion, trauma, lymphedema, idiopathic, CHF, as well as other pathologies. I attest that I have personally reviewed the patient's current medication list. Patient was found to have normal blood pressure on screening and does not require follow-up. The chart was completed utilizing [employer] Speech voice recognition software. Grammatical errors, random word insertions, pronoun errors, and incomplete sentences are an occasional consequence of this system due to software limitations, ambient noise, and hardware issues. Any formal questions or concerns about the content, text, or information contained within the body of this dictation should be directly addressed to the provider for clarification. Past Med/Surg History Medical History Class 3 obesity CKD (chronic kidney disease) stage 3, GFR 30-59 ml/min Breast cancer Acute schizophrenia Bipolar 1 disorder Surgical History No significant past surgical history Social History Smoking Status: Former smoker Second Hand Exposure: No; Do You Dip or Chew Tobacco: No; Hx Alcohol Use: No Hx Substance Use: No Preferred Language: Serbian Communication Ability: Effective Civil Draftsman Required: No Beliefs That Will Affect Care: None marital status: Current Living Situation: Spouse current occupational status: retired Other Information That Helps Us Care for You: No Feels Safe at Home: Yes Safety Concerns: Feels Safe At This Time Assistive Devices: Cane and Glasses Assistive Devices Comment: Patient used a cane the last several days Allergies Allergies Allergy/AdvReac Type Severity Reaction Status Date / Time cephalexin Allergy Severe HIVES Verified 05/22/23 21:36 cefprozil Allergy Unknown UNKNOWN Verified 05/22/23 21:36 Home Meds Home Medications Medication Instructions Recorded Confirmed cholecalciferol (vitamin D3) 50 50 mcg PO DAILY 05/22/23 10/22/23 mcg (2,000 unit) tablet (Vitamin D3) coenzyme Q10 30 mg capsule 30 mg PO DAILY 05/22/23 10/22/23 vitamin B complex 1 tab PO DAILY 05/22/23 10/22/23 amlodipine 10 mg tablet 10 mg PO QAM 10/22/23 10/22/23 potassium chloride 20 mEq 20 meq PO DAILY 10/22/23 10/22/23 tablet,extended release torsemide 20 mg tablet 20 mg PO DAILY 10/22/23 10/22/23 Previous Rx's Medication Instructions Recorded carvedilol 3.125 mg tablet 3.125 mg PO BID #60 tabs 05/26/23 hydralazine 50 mg tablet 50 mg PO TID #90 tabs 05/26/23 Results & Data (ED) Vital Signs Vital Signs - 24 hr 10/21/23 18:36 10/21/23 21:20 10/21/23 21:30 Temperature 36.9 C Temperature Source Skin Pulse Rate 100 H 86 89 Pulse Rate [Right Finger] Pulse Rate from SpO2 Sensor 86 Pulse Rhythm [Right Finger] Pulse Strength [Right Finger] Respiratory Rate 18 14 Respiratory Effort / Characteristics Respiratory Depth Respiratory Pattern Blood Pressure 137/83 Blood Pressure [Right Arm] Blood Pressure Mean 101 Blood Pressure Mean [Right Arm] Blood Pressure Position [Right Arm] Pulse Oximetry 99 99 Oxygen Delivery Method Room Air Sepsis Recent Fever Within 48 Hours No Sepsis New/Unexplained Change in Mental Status No Sepsis Action Taken by Nursing No Action Required 10/21/23 21:30 10/21/23 21:30 10/21/23 21:40 Temperature Temperature Source Pulse Rate 90 96 H Pulse Rate [Right Finger] Pulse Rate from SpO2 Sensor 93 H 95 H Pulse Rhythm [Right Finger] Pulse Strength [Right Finger] Respiratory Rate 19 25 H Respiratory Effort / Characteristics Respiratory Depth Respiratory Pattern Blood Pressure 135/92 Blood Pressure [Right Arm] Blood Pressure Mean 114 Blood Pressure Mean [Right Arm] Blood Pressure Position [Right Arm] Pulse Oximetry 91 94 Oxygen Delivery Method Sepsis Recent Fever Within 48 Hours Sepsis New/Unexplained Change in Mental Status Sepsis Action Taken by Nursing 10/21/23 21:50 10/21/23 22:00 10/21/23 22:00 Temperature Temperature Source Pulse Rate 96 H 90 Pulse Rate [Right Finger] Pulse Rate from SpO2 Sensor 91 H 91 H Pulse Rhythm [Right Finger] Pulse Strength [Right Finger] Respiratory Rate 19 15 Respiratory Effort / Characteristics Respiratory Depth Respiratory Pattern Blood Pressure 147/73 H Blood Pressure [Right Arm] Blood Pressure Mean 84 Blood Pressure Mean [Right Arm] Blood Pressure Position [Right Arm] Pulse Oximetry 87 L 94 Oxygen Delivery Method Sepsis Recent Fever Within 48 Hours Sepsis New/Unexplained Change in Mental Status Sepsis Action Taken by Nursing 10/21/23 22:10 10/21/23 22:20 10/21/23 22:30 Temperature Temperature Source Pulse Rate 90 89 Pulse Rate [Right Finger] Pulse Rate from SpO2 Sensor 90 90 Pulse Rhythm [Right Finger] Pulse Strength [Right Finger] Respiratory Rate 18 15 Respiratory Effort / Characteristics Respiratory Depth Respiratory Pattern Blood Pressure 115/70 Blood Pressure [Right Arm] Blood Pressure Mean 82 Blood Pressure Mean [Right Arm] Blood Pressure Position [Right Arm] Pulse Oximetry 95 95 Oxygen Delivery Method Sepsis Recent Fever Within 48 Hours Sepsis New/Unexplained Change in Mental Status Sepsis Action Taken by Nursing 10/21/23 22:30 10/21/23 22:40 10/21/23 22:50 Temperature Temperature Source Pulse Rate 84 86 84 Pulse Rate [Right Finger] Pulse Rate from SpO2 Sensor 85 86 84 Pulse Rhythm [Right Finger] Pulse Strength [Right Finger] Respiratory Rate 16 15 12 Respiratory Effort / Characteristics Respiratory Depth Respiratory Pattern Blood Pressure Blood Pressure [Right Arm] Blood Pressure Mean Blood Pressure Mean [Right Arm] Blood Pressure Position [Right Arm] Pulse Oximetry 97 98 97 Oxygen Delivery Method Sepsis Recent Fever Within 48 Hours Sepsis New/Unexplained Change in Mental Status Sepsis Action Taken by Nursing 10/21/23 23:00 10/21/23 23:00 10/21/23 23:10 Temperature Temperature Source Pulse Rate 86 89 Pulse Rate [Right Finger] Pulse Rate from SpO2 Sensor 86 88 Pulse Rhythm [Right Finger] Pulse Strength [Right Finger] Respiratory Rate 19 19 Respiratory Effort / Characteristics Respiratory Depth Respiratory Pattern Blood Pressure 148/72 H Blood Pressure [Right Arm] Blood Pressure Mean 96 Blood Pressure Mean [Right Arm] Blood Pressure Position [Right Arm] Pulse Oximetry 94 97 Oxygen Delivery Method Sepsis Recent Fever Within 48 Hours Sepsis New/Unexplained Change in Mental Status Sepsis Action Taken by Nursing 10/21/23 23:20 10/21/23 23:30 10/21/23 23:30 Temperature Temperature Source Pulse Rate 87 86 Pulse Rate [Right Finger] Pulse Rate from SpO2 Sensor 88 87 Pulse Rhythm [Right Finger] Pulse Strength [Right Finger] Respiratory Rate 16 16 Respiratory Effort / Characteristics Respiratory Depth Respiratory Pattern Blood Pressure 124/71 Blood Pressure [Right Arm] Blood Pressure Mean 107 Blood Pressure Mean [Right Arm] Blood Pressure Position [Right Arm] Pulse Oximetry 95 99 Oxygen Delivery Method Sepsis Recent Fever Within 48 Hours Sepsis New/Unexplained Change in Mental Status Sepsis Action Taken by Nursing 10/21/23 23:40 10/21/23 23:45 10/21/23 23:50 Temperature Temperature Source Pulse Rate 88 87 Pulse Rate [Right Finger] 87 Pulse Rate from SpO2 Sensor 90 84 Pulse Rhythm [Right Finger] Regular Pulse Strength [Right Finger] Normal Respiratory Rate 20 16 25 H Respiratory Effort / Characteristics Non-Labored Spontaneous Respiratory Depth Normal Respiratory Pattern Regular Blood Pressure Blood Pressure [Right Arm] 124/71 Blood Pressure Mean Blood Pressure Mean [Right Arm] 88 Blood Pressure Position [Right Arm] Lying Pulse Oximetry 94 97 98 Oxygen Delivery Method Room Air Sepsis Recent Fever Within 48 Hours Sepsis New/Unexplained Change in Mental Status Sepsis Action Taken by Nursing 10/22/23 00:00 10/22/23 00:00 10/22/23 00:10 Temperature Temperature Source Pulse Rate 95 H 90 Pulse Rate [Right Finger] Pulse Rate from SpO2 Sensor 90 Pulse Rhythm [Right Finger] Pulse Strength [Right Finger] Respiratory Rate 26 H 18 Respiratory Effort / Characteristics Respiratory Depth Respiratory Pattern Blood Pressure 137/79 Blood Pressure [Right Arm] Blood Pressure Mean 96 Blood Pressure Mean [Right Arm] Blood Pressure Position [Right Arm] Pulse Oximetry 98 Oxygen Delivery Method Sepsis Recent Fever Within 48 Hours Sepsis New/Unexplained Change in Mental Status Sepsis Action Taken by Nursing 10/22/23 00:20 10/22/23 00:30 10/22/23 00:30 Temperature Temperature Source Pulse Rate 87 87 Pulse Rate [Right Finger] Pulse Rate from SpO2 Sensor 87 88 Pulse Rhythm [Right Finger] Pulse Strength [Right Finger] Respiratory Rate 20 21 Respiratory Effort / Characteristics Respiratory Depth Respiratory Pattern Blood Pressure 144/71 H Blood Pressure [Right Arm] Blood Pressure Mean 96 Blood Pressure Mean [Right Arm] Blood Pressure Position [Right Arm] Pulse Oximetry 96 95 Oxygen Delivery Method Sepsis Recent Fever Within 48 Hours Sepsis New/Unexplained Change in Mental Status Sepsis Action Taken by Nursing 10/22/23 00:40 10/22/23 00:50 10/22/23 01:00 Temperature Temperature Source Pulse Rate 85 86 Pulse Rate [Right Finger] 87 Pulse Rate from SpO2 Sensor 87 Pulse Rhythm [Right Finger] Regular Pulse Strength [Right Finger] Normal Respiratory Rate 18 19 16 Respiratory Effort / Characteristics Non-Labored Spontaneous Respiratory Depth Normal Respiratory Pattern Regular Blood Pressure Blood Pressure [Right Arm] 138/63 Blood Pressure Mean Blood Pressure Mean [Right Arm] 88 Blood Pressure Position [Right Arm] Lying Pulse Oximetry 98 92 Oxygen Delivery Method Room Air Sepsis Recent Fever Within 48 Hours Sepsis New/Unexplained Change in Mental Status Sepsis Action Taken by Nursing 10/22/23 01:00 10/22/23 01:00 10/22/23 01:10 Temperature Temperature Source Pulse Rate 88 87 Pulse Rate [Right Finger] Pulse Rate from SpO2 Sensor 88 87 Pulse Rhythm [Right Finger] Pulse Strength [Right Finger] Respiratory Rate 19 27 H Respiratory Effort / Characteristics Respiratory Depth Respiratory Pattern Blood Pressure 138/63 Blood Pressure [Right Arm] Blood Pressure Mean 89 Blood Pressure Mean [Right Arm] Blood Pressure Position [Right Arm] Pulse Oximetry 93 91 Oxygen Delivery Method Sepsis Recent Fever Within 48 Hours Sepsis New/Unexplained Change in Mental Status Sepsis Action Taken by Nursing 10/22/23 01:11 10/22/23 01:20 10/22/23 01:30 Temperature Temperature Source Pulse Rate 87 85 Pulse Rate [Right Finger] Pulse Rate from SpO2 Sensor 85 Pulse Rhythm [Right Finger] Pulse Strength [Right Finger] Respiratory Rate 24 Respiratory Effort / Characteristics Respiratory Depth Respiratory Pattern Blood Pressure 137/65 Blood Pressure [Right Arm] Blood Pressure Mean 92 Blood Pressure Mean [Right Arm] Blood Pressure Position [Right Arm] Pulse Oximetry 91 Oxygen Delivery Method Sepsis Recent Fever Within 48 Hours Sepsis New/Unexplained Change in Mental Status Sepsis Action Taken by Nursing 10/22/23 01:30 10/22/23 01:40 Temperature Temperature Source Pulse Rate 84 83 Pulse Rate [Right Finger] Pulse Rate from SpO2 Sensor 84 82 Pulse Rhythm [Right Finger] Pulse Strength [Right Finger] Respiratory Rate 23 30 H Respiratory Effort / Characteristics Respiratory Depth Respiratory Pattern Blood Pressure Blood Pressure [Right Arm] Blood Pressure Mean Blood Pressure Mean [Right Arm] Blood Pressure Position [Right Arm] Pulse Oximetry 93 92 Oxygen Delivery Method Sepsis Recent Fever Within 48 Hours Sepsis New/Unexplained Change in Mental Status Sepsis Action Taken by Nursing Laboratory Data 10/22/23 02:46 10/22/23 02:46 Lab Results 10/21/23 10/21/23 Range/Units 18:49 22:35 WBC 25.34 H (4.8-10.8) K/ul RBC 4.19 L (4.20-5.40) M/uL Hgb 12.1 (12.0-16.0) g/dl Hct 36.8 L (37.0-47.0) % MCV 87.8 (80.0-100.0) fL MCH 28.9 (25.0-34.0) pg MCHC 32.9 (32.0-36.0) g/dL RDW Std Deviation 46.2 (36.4-46.3) fL RDW Coeff of Seth 14.5 (11.5-14.5) % Plt Count 483 H (130-400) K/uL MPV 9.8 (9.4-12.4) fL Immature Gran % (Auto) 0.8 % Neut % (Auto) 91.1 % Lymph % (Auto) 3.6 % Gallia % (Auto) 4.2 % Eos % (Auto) 0.0 % Baso % (Auto) 0.3 % Neut # (Auto) 23.07 H (1.40-6.50) K/uL Lymph # (Auto) 0.91 L (1.20-3.40) K/uL Gall[place] # (Auto) 1.07 H (0.11-0.59) K/uL Eos # (Auto) 0.01 (0.00-0.50) K/uL Baso # (Auto) 0.08 (0.00-0.20) K/uL Immature Gran # (Auto) 0.20 (0.01-0.20) K/uL PT 11.4 (9.0-12.0) Seconds INR 1.0 (0.9-1.1) APTT 30 (21-31) Seconds PTT Ratio 1.1 Sodium 136 (136-145) mmol/L Potassium 4.2 (3.5-5.1) mmol/L Chloride 98 (98-107) mmol/L Carbon Dioxide 27 (21-32) mmol/L Anion Gap 11 (3-11) BUN 17 (6-23) mg/dl Creatinine 1.56 H (0.6-1.2) mg/dl Est Cr Clr Drug Dosing Not Reportable Est GFR ( Amer) 39.4 ml/min Est GFR (Non-Af Amer) 34.0 ml/min BUN/Creatinine Ratio 10.9 (10-20) Glucose 111 H (70-99(Fasting)) mg/dl Calcium 10.2 (8.6-10.3) mg/dl Magnesium 1.6 L (1.7-2.4) mg/dl Total Bilirubin 0.7 (0.2-1.0) mg/dl AST 24 (13-39) U/L ALT 12 (7-52) U/L Alkaline Phosphatase 63 (34-104) U/L Total Creatine Kinase 60 (26-192) U/L Troponin I High Sens 5.7 (0-14) pg/ml B-Natriuretic Peptide 41 (0-100) pg/ml Total Protein 8.8 H (6.0-8.3) gm/dl Albumin 4.6 (3.4-5.0) gm/dl Globulin 4.2 H (2.5-4.0) gm/dl Albumin/Globulin Ratio 1.1 (0.9-2) Administered Medications Heparin Sodium (Porcine) (Heparin Sod 5,000 Unit/0.5 Ml Vial) 5,000 units SQ Q8 [id number] Stop: 11/21/23 05:59 Last Admin: 10/22/23 04:53 Dose: 5,000 units Documented By: SL Oxycodone HCl (Oxycodone Hcl Ir 5 Mg Tab (Immediate Release)) 5 mg PO Q4H PRN PRN Reason: Pain Stop: 11/05/23 01:43 Last Admin: 10/22/23 04:53 Dose: 5 mg Documented By: BEATRIZ Discontinued Medications Doxycycline Hyclate 100 mg/ (Dextrose) 100 mls @ 50 mls/hr IV NOW STA Stop: 10/22/23 02:41 Last Infusion: 10/22/23 05:09 Dose: Infused Documented By: Admin: 10/22/23 03:03 Dose: 50 mls/hr Documented By: ARI Magnesium Sulfate/Dextrose (Magnesium Sulfate / D5w) 1 gm in 100 mls @ 50 mls/hr IV ONE ONE Stop: 10/22/23 03:45 Last Infusion: 10/22/23 05:09 Dose: Infused Documented By: Admin: 10/22/23 03:01 Dose: 50 mls/hr Documented By: ARI Imaging Data Radiologist's Impression: Chest X-Ray 10/21/23 18:40 SINGLE VIEW CHEST CLINICAL HISTORY: Lower extremity edema FINDINGS: An AP, portable, upright chest radiograph is compared to study dated 05/22/2023. The cardiomediastinal silhouette is top normal for projection. The pulmonary vasculature is noncongested. Chronic interstitial thickening similar to previous. Calcified granulomas are again noted. There is bibasilar scarring/atelectasis. No airspace consolidation or large pleural effusion is identified. No pneumothorax is seen. The skeletal structures are osteopenic. There is chronic posttraumatic deformity of the right proximal humerus. An indeterminate 6.5 linear radiodensity projects over the right upper chest. IMPRESSION: 1. No acute cardiopulmonary abnormality. 2. An indeterminate 6.5 cm linear radiodensity projecting over the upper chest may be external to the patient. A foreign body would be impossible to exclude. Correlate clinically. ACT 112: Negative or not required by law. Electronically signed by: Sage Luther M.D. 10/21/2023 8:[address] 10/22/23 01:38 Exam(s): CT RIGHT FOOT Without Contrast EXAM: CT Right Lower Extremity Without Intravenous Contrast, Foot CLINICAL HISTORY: Reason for exam: swelling ro abscess. TECHNIQUE: Axial computed tomography images of the right foot without intravenous contrast. Automated exposure control was utilized for the study. A dose lowering technique was utilized adhering to the principles of ALARA. COMPARISON: No relevant prior studies available. FINDINGS: Bones/joints: Unremarkable. No acute fracture. No dislocation. Soft tissues: There is extensive soft tissue edema identified in the right foot. There is skin thickening seen in the dorsum of the right foot. No radiopaque foreign body. No soft tissue air. IMPRESSION: 1. No evidence of soft tissue abscess 2. Soft tissue cellulitis in the foot Electronically signed by: Baljinder Valdez MD 10/22/23 05:[address] 10/22/23 01:38 Exam(s): CT EXTREMITY RIGHT LOWER Without Contrast EXAM: CT Right Lower Extremity Without Intravenous Contrast CLINICAL HISTORY: Reason for exam: swelling ro abscess. TECHNIQUE: Axial computed tomography images of the right lower extremity without intravenous contrast. Automated exposure control was utilized for the study. A dose lowering technique was utilized adhering to the principles of ALARA. COMPARISON: No relevant prior studies available. FINDINGS: Bones/joints: Unremarkable. No acute fracture. No dislocation. Soft tissues: There is mild subcutaneous tissue edema is seen in the right distal leg. IMPRESSION: No evidence of soft tissue abscess. Subcutaneous tissue edema the right distal leg is suggestive of cellulitis. Electronically signed by: Baljinder Valdez MD 10/22/23 05:09 AM Venous Doppler Study 10/22/23 01:38 Exam(s): US VENOUS RIGHT LOWER EXTREMITY EXAM: US Duplex Right Lower Extremity Veins CLINICAL HISTORY: Reason for exam: swelling. TECHNIQUE: Real-time duplex ultrasound scan of the right lower extremity veins integrating B-mode two-dimensional vascular structure, Doppler spectral analysis, color flow Doppler imaging and compression. COMPARISON: No relevant prior studies available. FINDINGS: Deep veins: Unremarkable. No DVT in the visualized common femoral, femoral, proximal deep femoral or popliteal veins. The veins demonstrate normal color flow, are normally compressible, with normal phasic flow and/or augmentation response. Superficial veins: Unremarkable. No thrombus in the visualized great saphenous vein. Soft tissues: No acute findings. No popliteal cyst. IMPRESSION: Normal right lower extremity duplex venous ultrasound. Electronically signed by: Baljinder Valdez MD 10/22/23 05:16 AM Discharge Plan Visit Data Chief Complaint: Swelling/Edema to Extremity Stated Complaint: EDEMA LEGS ED Provider: Sami Rogers ED Midlevel Provider: Mariely Moscoso Discharge Problem: Edema, Acute pain of right foot Patient Disposition: Admitted As Inpatient Discharge Instructions Interventions: ED Discharge Assessment Last Done: 10/22/23 03:30
[2023-10-21 23:03] LABS: Troponin I High Sensitivity 5.7 pg/ml (0-14)
[2023-10-22] MEDS ORDERED: DOXYCYCLINE HYCLATE 100 MG in DEXTROSE 5% MINI-B 100 ML IV STA (00:42)
[2023-10-22 01:38] LABS: Creatine Kinase 60 U/L (26-192); Magnesium 1.6 mg/dl (1.7-2.4)
--- NOTE | 2023-10-22 01:41 | History & Physical Report ---
Date of Service October 22, 2023 Assessment & Plan (1) Cellulitis of right leg: Plan: Possible sepsis Rule out RLE abscess, DVT ? Vasodilation from amlodipine contributory HTN, BP stable CKD, creatinine better than last outpatient baseline of 1.9 from May 2023 recurrent breast cancer left status post surgery/reconstruction/chemotherapy chronic anemia, hemoglobin at baseline mood disorder, at baseline, patient currently not on maintenance medications. Prediabetes, hemoglobin A1c of 5.9 last May 2023 GMF CS, Doxycycline Elevate right lower extremity RLE CT, RLE venous Dopplers Further management pending additional imaging results Decrease maintenance amlodipine dose Resume home diuretic Rx once baseline kidney function established DVT prophylaxis. Heparin subcu Full code Patient requesting updates from providers. Mr. Laureano Garcia, contact #[phone]. Text document was generated using [email or web address] voice recognition software. It may contain grammatical or spelling errors. Kindly contact undersigned for clarification of any documentation item in question. History of Present Illness Chief Complaint: Painful right leg swelling Primary Care Provider: Anthony Costello DO History obtained from patient and records. Medical history significant for recurrent breast cancer left status post surgery/reconstruction/chemotherapy, CRI (baseline creatinine 1.9 from May 2023), chronic anemia (baseline hemoglobin of 10), mood disorder, orthostatic hypotension as per records, prediabetes, difficult intubation as per records. Last confinement May 2023 for hypertensive emergency and ARF on CKD. Patient seen by Nephrology and discharged on multiple blood pressure medications. 1 day history of achy RLE pain, increased swelling than usual. No recollection of trauma. No fever, no chills, no chest pain, no SOB. Patient compliant with home medications. Actually losing weight. Patient consulted ER for evaluation. 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 Allergies Allergy/AdvReac Type Severity Reaction Status Date / Time cephalexin Allergy Severe HIVES Verified 05/22/23 21:36 cefprozil Allergy Unknown UNKNOWN Verified 05/22/23 21:36 Home Medications Medication Instructions Recorded Confirmed Type cholecalciferol (vitamin D3) 50 50 mcg PO DAILY 05/22/23 10/22/23 History mcg (2,000 unit) tablet (Vitamin D3) coenzyme Q10 30 mg capsule 30 mg PO DAILY 05/22/23 10/22/23 History vitamin B complex 1 tab PO DAILY 05/22/23 10/22/23 History carvedilol 3.125 mg tablet 3.125 mg PO BID #60 tabs 05/26/23 10/22/23 Rx hydralazine 50 mg tablet 50 mg PO TID #90 tabs 05/26/23 10/22/23 Rx amlodipine 10 mg tablet 10 mg PO QAM 10/22/23 10/22/23 History potassium chloride 20 mEq 20 meq PO DAILY 10/22/23 10/22/23 History tablet,extended release torsemide 20 mg tablet 20 mg PO DAILY 10/22/23 10/22/23 History Past Med/Surg History Medical History Class 3 obesity CKD (chronic kidney disease) stage 3, GFR 30-59 ml/min Breast cancer Acute schizophrenia Bipolar 1 disorder Surgical History No significant past surgical history Social History Smoking Status: Former smoker Second Hand Exposure: No; Do You Dip or Chew Tobacco: No; Hx Alcohol Use: No Hx Substance Use: No Preferred Language: Pakistani Communication Ability: Effective Coin Dealer Required: No Beliefs That Will Affect Care: None marital status: Current Living Situation: Spouse current occupational status: retired Other Information That Helps Us Care for You: No Feels Safe at Home: Yes Safety Concerns: Feels Safe At This Time Assistive Devices: Cane and Glasses Assistive Devices Comment: Patient used a cane the last several days Review of Systems Review of Systems: As per HPI, all other systems reviewed and negative Physical Exam Physical Exam: GENERAL: Slightly uncomfortable, morbidly obese, unkempt, no respiratory distress SKIN: Pallor, warm HEENT: Pale palpebral conjunctivae, no ptosis, dry buccal mucosa NECK : Supple, short neck, no tenderness CHEST : Decreased breath sounds, no tenderness HEART : RRR, no obvious murmurs ABDOMEN: Some distention, nontender EXTREMITIES : Bilateral LE swelling, R> L, minimal RLE erythema with tenderness, no other conspicuous deformities noted NEUROLOGIC : Coherent, no facial asymmetry, no other gross focality Results & Data Results & Data Vital Signs (Past 12 Hours) Vital Signs Temp Pulse Pulse Resp BP BP Pulse Ox 10/22/23 01:11 87 10/22/23 01:00 87 16 138/63 92 10/21/23 23:45 87 16 124/71 97 10/21/23 21:30 89 10/21/23 18:36 36.9 C 100 H 18 137/83 99 O2 Del Method 10/22/23 01:11 10/22/23 01:00 Room Air 10/21/23 23:45 Room Air 10/21/23 21:30 10/21/23 18:36 Room Air Laboratory Results Laboratory Results WBC 25.34 K/ul (4.8-10.8) H 10/21/23 18:49 RBC 4.19 M/uL (4.20-5.40) L 10/21/23 18:49 Hgb 12.1 g/dl (12.0-16.0) 10/21/23 18:49 Hct 36.8 % (37.0-47.0) L 10/21/23 18:49 MCV 87.8 fL (80.0-100.0) 10/21/23 18:49 MCH 28.9 pg (25.0-34.0) 10/21/23 18:49 MCHC 32.9 g/dL (32.0-36.0) 10/21/23 18:49 RDW Std Deviation 46.2 fL (36.4-46.3) 10/21/23 18:49 RDW Coeff of Seth 14.5 % (11.5-14.5) 10/21/23 18:49 Plt Count 483 K/uL (130-400) H 10/21/23 18:49 MPV 9.8 fL (9.4-12.4) 10/21/23 18:49 Immature Gran % (Auto) 0.8 % 10/21/23 18:49 Neut % (Auto) 91.1 % 10/21/23 18:49 Lymph % (Auto) 3.6 % 10/21/23 18:49 [place] % (Auto) 4.2 % 10/21/23 18:49 Eos % (Auto) 0.0 % 10/21/23 18:49 Baso % (Auto) 0.3 % 10/21/23 18:49 Neut # (Auto) 23.07 K/uL (1.40-6.50) H 10/21/23 18:49 Lymph # (Auto) 0.91 K/uL (1.20-3.40) L 10/21/23 18:49 [place] # (Auto) 1.07 K/uL (0.11-0.59) H 10/21/23 18:49 Eos # (Auto) 0.01 K/uL (0.00-0.50) 10/21/23 18:49 Baso # (Auto) 0.08 K/uL (0.00-0.20) 10/21/23 18:49 Immature Gran # (Auto) 0.20 K/uL (0.01-0.20) 10/21/23 18:49 PT 11.4 Seconds (9.0-12.0) 10/21/23 18:49 INR 1.0 (0.9-1.1) 10/21/23 18:49 APTT 30 Seconds (21-31) 10/21/23 18:49 PTT Ratio 1.1 10/21/23 18:49 Sodium 136 mmol/L (136-145) 10/21/23 18:49 Potassium 4.2 mmol/L (3.5-5.1) 10/21/23 18:49 Chloride 98 mmol/L (98-107) 10/21/23 18:49 Carbon Dioxide 27 mmol/L (21-32) 10/21/23 18:49 Anion Gap 11 (3-11) 10/21/23 18:49 BUN 17 mg/dl (6-23) 10/21/23 18:49 Creatinine 1.56 mg/dl (0.6-1.2) H 10/21/23 18:49 Est Cr Clr Drug Dosing Not Reportable 10/21/23 18:49 Est GFR ( Amer) 39.4 ml/min 10/21/23 18:49 Est GFR (Non-Af Amer) 34.0 ml/min 10/21/23 18:49 BUN/Creatinine Ratio 10.9 (10-20) 10/21/23 18:49 Glucose 111 mg/dl (70-99(Fasting)) H 10/21/23 18:49 Calcium 10.2 mg/dl (8.6-10.3) 10/21/23 18:49 Magnesium 1.6 mg/dl (1.7-2.4) L 10/21/23 18:49 Total Bilirubin 0.7 mg/dl (0.2-1.0) 10/21/23 18:49 AST 24 U/L (13-39) 10/21/23 18:49 ALT 12 U/L (7-52) 10/21/23 18:49 Alkaline Phosphatase 63 U/L (34-104) 10/21/23 18:49 Total Creatine Kinase 60 U/L (26-192) 10/21/23 18:49 Troponin I High Sens 5.7 pg/ml (0-14) 10/21/23 18:49 B-Natriuretic Peptide 41 pg/ml (0-100) 10/21/23 22:35 Total Protein 8.8 gm/dl (6.0-8.3) H 10/21/23 18:49 Albumin 4.6 gm/dl (3.4-5.0) 10/21/23 18:49 Globulin 4.2 gm/dl (2.5-4.0) H 10/21/23 18:49 Albumin/Globulin Ratio 1.1 (0.9-2) 10/21/23 18:49 Impressions Chest X-Ray 10/21/23 18:40 SINGLE VIEW CHEST CLINICAL HISTORY: Lower extremity edema FINDINGS: An AP, portable, upright chest radiograph is compared to study dated 05/22/2023. The cardiomediastinal silhouette is top normal for projection. The pulmonary vasculature is noncongested. Chronic interstitial thickening similar to previous. Calcified granulomas are again noted. There is bibasilar scarring/atelectasis. No airspace consolidation or large pleural effusion is identified. No pneumothorax is seen. The skeletal structures are osteopenic. There is chronic posttraumatic deformity of the right proximal humerus. An indeterminate 6.5 linear radiodensity projects over the right upper chest. IMPRESSION: 1. No acute cardiopulmonary abnormality. 2. An indeterminate 6.5 cm linear radiodensity projecting over the upper chest may be external to the patient. A foreign body would be impossible to exclude. Correlate clinically. ACT 112: Negative or not required by law. Electronically signed by: Sage Luther M.D. 10/21/2023 8:10 PM Diagnostic Findings EKG as per my interpretation : Rate 90, NSR, normal axis, no ischemia
[2023-10-22] MEDS ORDERED: PROMETHAZINE HCL 12.5 MG in SODIUM CHLORIDE 0.9% 50 ML IV PRN (01:44)
[2023-10-22] MEDS ORDERED: ACETAMINOPHEN 325 MG TAB PO PRN (01:44)
[2023-10-22] MEDS ORDERED: MAGNESIUM SULFATE / D5W 1 GM/100 ML BAG IV ONE (01:46)
[2023-10-22 02:59] LABS: Basophils # (auto) 0.05 K/uL (0.00-0.20); Basophils % (auto) 0.3 %; Eosinophils # (auto) 0.01 K/uL (0.00-0.50); Eosinophils % (auto) 0.1 %; Hematocrit (blood only) 34.4 % (37.0-47.0); Hemoglobin 11.1 g/dl (12.0-16.0); Immature Granulocytes % (auto) 0.5 %; Lymphocytes # (auto) 1.38 K/uL (1.20-3.40); Lymphocytes % (auto) 7.4 %; Mean Corpuscular Hemoglobin 28.2 pg (25.0-34.0); Mean Corpuscular Hgb Conc 32.3 g/dL (32.0-36.0); Mean Corpuscular Volume 87.3 fL (80.0-100.0); Mean Platelet Volume 9.6 fL (9.4-12.4); Monocytes % (auto) 5.9 %; Neutrophils # (auto) 15.97 K/uL (1.40-6.50); Neutrophils % (auto) 85.8 %; Platelet Count 427 K/uL (130-400); RDW Coefficient of Variation 14.4 % (11.5-14.5); RDW Standard Deviation 46.3 fL (36.4-46.3); Red Blood Count 3.94 M/uL (4.20-5.40); White Blood Count 18.61 K/ul (4.8-10.8)
[2023-10-22 03:18] LABS: BUN Creatinine Ratio 12.7 (10-20); Calcium 9.9 mg/dl (8.6-10.3); Creatinine Clr Calc Pharmacy 40.9 ml/min; Est GFR (African American) 36.9 ml/min; Est GFR (Non-African American) 31.8 ml/min; Magnesium 1.6 mg/dl (1.7-2.4); Potassium 3.2 mmol/L (3.5-5.1)
[2023-10-22] MEDS: oxyCODONE HCL IR 5 MG TAB (IMMEDIATE RELEASE) PO PRN (04:53)
[2023-10-22] MEDS: HEPARIN SOD 5,000 UNIT/0.5 ML VIAL SQ SCH ×3 (04:53→20:22)
--- NOTE | 2023-10-22 05:11 | CT Scan Report ---
Exam(s): CT EXTREMITY RIGHT LOWER Without Contrast EXAM: CT Right Lower Extremity Without Intravenous Contrast CLINICAL HISTORY: Reason for exam: swelling ro abscess. TECHNIQUE: Axial computed tomography images of the right lower extremity without intravenous contrast. Automated exposure control was utilized for the study. A dose lowering technique was utilized adhering to the principles of ALARA. COMPARISON: No relevant prior studies available. FINDINGS: Bones/joints: Unremarkable. No acute fracture. No dislocation. Soft tissues: There is mild subcutaneous tissue edema is seen in the right distal leg. IMPRESSION: No evidence of soft tissue abscess. Subcutaneous tissue edema the right distal leg is suggestive of cellulitis. Electronically signed by: Baljinder Valdez MD 10/22/23 05:09 AM
--- NOTE | 2023-10-22 05:15 | CT Scan Report ---
Exam(s): CT RIGHT FOOT Without Contrast EXAM: CT Right Lower Extremity Without Intravenous Contrast, Foot CLINICAL HISTORY: Reason for exam: swelling ro abscess. TECHNIQUE: Axial computed tomography images of the right foot without intravenous contrast. Automated exposure control was utilized for the study. A dose lowering technique was utilized adhering to the principles of ALARA. COMPARISON: No relevant prior studies available. FINDINGS: Bones/joints: Unremarkable. No acute fracture. No dislocation. Soft tissues: There is extensive soft tissue edema identified in the right foot. There is skin thickening seen in the dorsum of the right foot. No radiopaque foreign body. No soft tissue air. IMPRESSION: 1. No evidence of soft tissue abscess 2. Soft tissue cellulitis in the foot Electronically signed by: Baljinder Valdez MD 10/22/23 05:13 AM
--- NOTE | 2023-10-22 05:17 | Ultrasound Report ---
Exam(s): US VENOUS RIGHT LOWER EXTREMITY EXAM: US Duplex Right Lower Extremity Veins CLINICAL HISTORY: Reason for exam: swelling. TECHNIQUE: Real-time duplex ultrasound scan of the right lower extremity veins integrating B-mode two-dimensional vascular structure, Doppler spectral analysis, color flow Doppler imaging and compression. COMPARISON: No relevant prior studies available. FINDINGS: Deep veins: Unremarkable. No DVT in the visualized common femoral, femoral, proximal deep femoral or popliteal veins. The veins demonstrate normal color flow, are normally compressible, with normal phasic flow and/or augmentation response. Superficial veins: Unremarkable. No thrombus in the visualized great saphenous vein. Soft tissues: No acute findings. No popliteal cyst. IMPRESSION: Normal right lower extremity duplex venous ultrasound. Electronically signed by: Baljinder Valdez MD 10/22/23 05:16 AM
--- OUTSIDE RECORDS SUMMARY | 2023-10-22 07:27 | External Medical Summary | Summary of Care ---
Author Name Unknown Organization [facility] Address [address] [place] [address] Phone [phone] Care Team Providers Care Soda Drier Feeder Name Role Phone Isha Escalante Primary Care Provider Reason for Visit * Reason Onset Date Comments Advice 10/21/2023 Med Request 10/21/2023 Encounter Details Date Type Department Care Team (Late st Contact Info) Description 10/21/2023 Telephone Nephrology [address] [address] Services, Scheduling [address] [place] [address] Advice; Med Request Allergies Active Allergy Reactions Criticality Noted Date Comments Cephalosporins Hives 02/21/2009 Valproic Acid 11/28/2014 documented as of this encounter (statuses as of 10/21/2023) Medications Medication Sig Dispensed Refills Start Date End Date Status IBUPROFEN 600 MG PO TABSIndications:Carc inoma in situ of breast 1 tablet by mouth three times daily x 2 weeks. Do not exceed 4 tablets in 24 hours. 90 Tab 1 01/16/2011 Active Coenzyme Q10 (CO Q 10) 10 MG CAPS Take 3 Caps by mouth daily. 0 Active Vitamins-Lipotropics (LIPO-FLAVONOID PLUS) TABS Take 1 Tab by mouth daily. 0 Active Kelp 0.15 MG TABS Take by mouth. 0 Act marion Acetaminophen 325 MG Oral Tablet Chewable Take by mouth. 0 Active Vitamin D3 50 MCG (2000 UT) Oral Tablet Take 1 Tablet by mouth in the morning. 0 Active Iron 325 (65 Fe) MG Oral Tablet Take by mouth. 0 Active Vitamin B Complex Oral Capsule Take by mouth. 0 Active Carvedilol 3.125 MG Oral Tablet (Coreg) Take 1 Tablet by mouth 2 times a day with morning and evening meals. 180 Tablet 3 06/27/2023 Active Torsemide 20 MG Oral Tablet (Demadex) Take 1 Tablet by mouth in the morning. 30 Tablet 3 09/29/2023 Active amLODIPine Besylate 10 MG Oral Tablet (Norvasc) Take 1 Tablet by mouth in the morning. 0 Active documented as of this encounter (statuses as of 10/21/2023) Active Problems Problem Noted Date Diagnosed Date Chronic kidney disease, stage 3a 06/30/2023 Overview: Per CKD protocol History of breast cancer 10/20/2020 Dehydration 10/26/2019 Orthostatic hypotension 10/26/2019 Chemotherapy induced diarrhea 10/26/2019 Malignant neoplasm of lower- outer quadrant of left breast of female, estrogen receptor negative 10/01/2019 Cancer Staging:Clinical stage from 10/01/2019:Stage IIB(cT3, cN0, cM0, G3, ER-, NE-, HER2+) - Signed by Nikolas Daugherty MD on 10/01/2019 Difficult intubation 03/27/2015 Overview: Easy mask airway, RAIL LAYER unable to visualize vocal cords via direct laryngoscopy with MAC 3, easily intubated with GlideScope, first attempt, grade I view, atraumatic. 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/21/2009 documented as of this encounter (statuses as of 10/21/2023) Immunizations No known immunizationsdocumented as of this encounter Social History Tobacco Use Types Packs/Day Years Used Date Smoking Tobacco: Former Smokeless Tobacco: Never Alcohol Use Standard Drinks/Week Comments No 0 (1 standard drink = 0.6 oz pur e alcohol) Sex and Gender Information Value Date Recorded Sex Assigned at Not on file Gender Identity Not on file Sexual Orientation Not on file Job Start Date Occupation Industry Not on file Not on file Not on file documented as of this encounter Miscellaneous Notes * Telephone Encounter - Ramonita Eisenberg OSA - 10/21/2023 12:02 PM EST Please call Laureano and let him know which pharmacy the potassium was called in to. He cannot find it at [facility] or the [facility]. * Telephone Encounter - Sita Dorado OSA - 10/21/2023 10:58 AM EST Good morning, Pt Live on the line requesting a call back regarding potassium medication sent out yesterday. Live also states pt has some swelling or her right foot with pain. Please contact Live at [phone] to advise. Thank you! documented in this encounter Plan of Treatment Upcoming Encounters Date Type Department Care Team (Late st Contact Info) Description 02/18/2024 2:00 PM EDT Office Visit [facility] [address] [place] [address] [place] [address] Marylou Andino MD [address] [place] [address] [place] [address] 04/07/2024 2:45 PM EDT Office Visit Hematology/Oncology [place] [address] [place] [address] Nikolas Daugherty MD [address] [place] [address] Health Maintenance Due Date Last Done Comments DXA Scan 1955 Lipid Panel 1956 COVID-19 Vaccine (#1) 1956 Depression Screening 1968 CKD PHOS USE SMARTSET 03849 1974 Hepatitis C Screening 1974 DTaP,Tdap,and Td Vaccines (1 - Tdap) 1975 Zoster Vaccines (1 of 2) 2006 Pneumococcal Vaccine: 65+ Years (1 - PCV) 2021 Influenza Vaccine (FLU shot) (#1) 2023 GFR 04/14/2024 10/15/2023, 09/17, 06/13/2023, Additional history exists CKD HGB USE SMARTSET 25378 06/13/202406/13, 06/13/2023, 03/26/2023, Additional history exists Albumin/Creatinine Ratio 06/25/2024 06/25/2023 Diabetes Screening 10/15/2026 10/15/2023, 1 11/29/2022, 06/13/2023, Additional history exists COLONOSCOPY-EVERY 5 YRS AGES 18-100 10/15/2028 10/15/2023, 10/15/2023, 08/25/2015 GARDASIL-HPV IMMUNIZATION SERIES Aged Out No longer eligible based on patient's age to complete this topic Hepatitis B Aged Out No longer eligi ble based on patient's age to complete this topic MENINGOCOCCAL (MENACTRA/MENVEO) Aged Out No longer eligible based on patient's age to complete this topic documented as of this encounter Medical Devices Implanted Type Area Fleet Coordinator Device Identifier Shelf Expiration Date Model / Serial / Lot Mesh 10 X 14 [id number] - [id number] Implanted:Qty : 1 on 08[place]16/2010 [place] [facility] [place] Abdomen [employer] 04/17/2015 [id number] / / [id number] Port Power Mri W/8fr Cath - [id number] Implanted:Qty : 1 on 10/12/2019 by Vern Gonzalez MD at OR [facility] N/A: Subclavian CR BARD : PERIPHERAL VASCULAR 03/16/2021 [id number] / / [id number] documented as of this encounter Advance Directives Latest Code Status on File Code Status Date Activated Date Inactivated Comments Full Code 06/27/2020 11:06 AM 06/27/2020 10:36 PM Thi s order reflects the patients wishes and were consensually agreed upon. Code Status History Code Status Date Activated Date Inactivated Comments Full Code 08/16/2010 4:13 PM 08/20/2010 6:17 PM Question Answer Comments Discussion of Advance Direct gokul occurred with: Not Discussed Care Teams Soda Drier Feeder Relationship Specialty Start Date End Date Isha Escalante CRNP [address] [place] [address] PCP - General Nurse Practitioner 06/25/23 documented as of this encounter
--- OUTSIDE RECORDS SUMMARY | 2023-10-22 07:27 | External Medical Summary | Summary of Care ---
Author Name Unknown Organization [facility] Address [address] [place] [address] Phone [phone] Care Team Providers Care Grounds Maintenance Manager Name Role Phone Isha Escalante Primary Care Provider Reason for Visit * Reason Onset Date Comments Encounter Created in Error 10/21/2023 Encounter Details Date Type Department Care Team (Late st Contact Info) Description 10/21/2023 Telephone Nephrology, [address] [address] Marylou Andino MD [address] [place] [address] Encounter Created in Error Allergies Active Allergy Reactions Criticality Noted Date [...] from 10/01/2019:Stage IIB(cT3, cN0, cM0, G3, ER-, OR-, HER2+) - Signed by Nikolas Daugherty MD on 10/01/2019 Difficult intubation 03/27/2015 Overview: Easy mask airway, 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 unable to visualize vocal cords via direct [...] on file documented as of this encounter Plan of Treatment Upcoming Encounters Date Type Department Care Team (Late st Contact Info) Description 02/18/2024 2:00 PM EDT Office Visit Nephrology, [facility] [address] [facility] [place] [address] Marylou Andino MD [address] [place] [address] 04/07/2024 2:45 PM EDT Office Visit Hematology/Oncology [facility] [place] [address] [facility] [place] [address] Nikolas Daugherty MD [address] [facility] [place] [address] Health Maintenance Due Date Last Done Comments DXA Scan 1955 Lipid Panel 1956 COVID-19 Vaccine (#1) 1956 Depression Screening 1968 CKD PHOS USE SMARTSET 23645 1974 Hepatitis C Screening 1974 DTaP,Tdap,and Td Vaccines (1 - Tdap) 1975 Zoster Vaccines (1 of 2) 2006 Pneumococcal Vaccine: 65+ Years (1 - PCV) 2021 Influenza Vaccine (FLU shot) (#1) 2023 GFR 04/14/2024 10/15/2023, 09/17, 06/13/2023, Additional history exists CKD HGB USE SMARTSET 94997 06/13/202406/13, 06/13/2023, 03/26/2023, Additional history exists Albumin/Creatinine [...] this encounter Medical Devices Implanted Type Area Elementary Reading Tutor Device Identifier Shelf Expiration Date Model / Serial / Lot Mesh 10 X 14 [id number] - [id number] Implanted:Qty : 1 on 08/16/2010 at OR [facility] N/A: Abdomen [employer] 04/17/2015 [id number] / / [id number] Port Power Mri W/8fr Cath - [id number] Implanted:Qty : 1 on 10/12/2019 by Vern Gonzalez MD at OR [facility] N/A: Subclavian CR BARD : PERIPHERAL VASCULAR 03/16/2021 [id number] / / [id number] documented as of this encounter Advance Directives [...] gokul occurred with: Not Discussed Care Teams Grounds Maintenance Manager Relationship Specialty Start Date End Date Isha Escalante CRNP [address] [place] [address] PCP - General Nurse Practitioner 06/25/23 documented as of this encounter
--- OUTSIDE RECORDS SUMMARY | 2023-10-22 07:28 | External Medical Summary ---
Author Name Unknown Address Unknown Organization [id number]:[facility] [place] - [address] [facility] [address] Laboratory Report Ordering Provider Test Date Status REGGIE SILVA 10/15/2023 16:00:31 Final Observation Date Value Abnormality Reference (Units ) Status BUN 10/15/2023 16:00:31 12 6-20 (mg/dL) Final Creatinine 10/15/2023 16:00:31 1.4 Above high normal 0.5-1.0 (mg/dL) Final Glomerular filtration rate/1.73 sq M.predicted [Volume Rate/Area] in Serum, Plasma or Blood by Creatinine-based formula (CKD-EPI) 10/15/2023 16:00:31 43 Below low normal >=60 (mL/min) Final eGFR is calculated based on the CKD-EPI 2020 equation SODIUM 10/15/2023 16:00:31 143 135-146 (m mol/L) Final Potassium 10/15/2023 16:00:31 3.1 Below low normal 3.5 -5.1 (mmol/L) Final Cl 10/15/2023 16:00:31 98 98-107 (mm ol/L) Final CO2 10/15/2023 16:00:31 29 22-32 (mmo l/L) Final Anion gap 10/15/2023 16:00:31 16 Above high normal 7- 15 (mmol/L) Final Glucose 10/15/2023 16:00:31 105 70-120 (mg /dL) Final Albumin 10/15/2023 16:00:31 4.8 3.8-5.0 (g /dL) Final AST (Aspartate aminotransferase) 10/15/2023 16:00:31 23 10-35 (U/L) Fin al Alk Phos 10/15/2023 16:00:31 77 35-130 (U/ L) Final Bilirubin, Total 10/15/2023 16:00:31 0.3 <=1 .2 (mg/dL) Final Calcium 10/15/2023 16:00:31 10.2 8.4-10.2 ( mg/dL) Final Protein 10/15/2023 16:00:31 7.7 6.0-8.3 (g /dL) Final ALT (Alanine aminotransferase) 10/15/2023 16:00:31 15 10-35 (U/L) René duque Performing Location [facility] [place] - [address] [facility] [id number]
--- OUTSIDE RECORDS SUMMARY | 2023-10-22 07:28 | External Medical Summary ---
Author Name Unknown Address Unknown Organization [id number]:[facility] [place] - [address] [facility] [address] Laboratory Report Ordering Provider Test Date Status REGGIE SILVA 09/29/2023 14:31:16 Final Observation Date Value Abnormality Reference (Units ) Status BUN 09/29/2023 14:31:16 23 Above high normal 6-20 (mg/dL) Final Creatinine 09/29/2023 14:31:16 1.6 Above high normal 0.5-1.0 (mg/dL) Final Glomerular filtration rate/1.73 sq M.predicted [Volume Rate/Area] in Serum, Plasma or Blood by Creatinine-based formula (CKD-EPI) 09/29/2023 14:31:16 36 Below low normal >=60 (mL/min) Final eGFR is calculated based on the CKD-EPI 2020 equation SODIUM 09/29/2023 14:31:16 141 135-146 (m mol/L) Final Potassium 09/29/2023 14:31:16 3.4 Below low normal 3.5 -5.1 (mmol/L) Final Cl 09/29/2023 14:31:16 95 Below low normal 98- 107 (mmol/L) Final CO2 09/29/2023 14:31:16 33 Above high normal 22 -32 (mmol/L) Final Anion gap 09/29/2023 14:31:16 13 7-15 (mmol /L) Final Glucose 09/29/2023 14:31:16 98 70-120 (mg /dL) Final Albumin 09/29/2023 14:31:16 4.5 3.8-5.0 (g /dL) Final AST (Aspartate aminotransferase) 09/29/2023 14:31:16 22 10-35 (U/L) Fin al Alk Phos 09/29/2023 14:31:16 64 35-130 (U/ L) Final Bilirubin, Total 09/29/2023 14:31:16 0.2 <=1 .2 (mg/dL) Final Calcium 09/29/2023 14:31:16 10.0 8.4-10.2 ( mg/dL) Final Protein 09/29/2023 14:31:16 7.8 6.0-8.3 (g /dL) Final ALT (Alanine aminotransferase) 09/29/2023 14:31:16 16 10-35 (U/L) René duque Performing Location [facility] [place] - [address] [facility] [address]
--- OUTSIDE RECORDS SUMMARY | 2023-10-22 07:28 | External Medical Summary | Summary of Care ---
Author Name Unknown Organization [facility] Address [address] [facility] [place] [address] Phone [phone] Care Team Providers Care Mine Exploration Engineer Name Role Phone Isha Escalante Primary Care Provider Reason for Visit * Reason Comments Follow Up 6m Encounter Details Date Type Department Care Team (Late st Contact Info) Description 10/08/2023 2:45 PM EST Office Visit Hematology/Oncology [facility] [place] [address] [facility] [place] [address] Nikolas Daugherty MD [address] [facility] [place] [address] History of breast cancer* Allergies Active Allergy Reactions Criticality Noted Date Comments Cephalosporins Hives 02/21/2009 Valproic Acid 11/28/2014 documented as of this encounter (statuses as of 10/08/2023) Medications Medication Sig Dispensed Refills Start Date End Date Status IBUPROFEN 600 MG PO TABSIndications:Car cinoma in situ of breast 1 tablet by mouth three times daily x 2 weeks. Do not exceed 4 tablets in 24 hours. 90 Tab 1 01/16/2011 Active Coenzyme Q10 (CO Q 10) 10 MG CAPS Take 3 Caps by mouth daily. 0 Active Vitamins-Lipotropic s (LIPO-FLAVONOID PLUS) TABS Take 1 Tab by mouth daily. 0 Active Kelp 0.15 MG TABS Take by mouth. 0 Act marion Acetaminophen 325 MG Oral Tablet Chewable Take by mouth. 0 Active Vitamin D3 50 MCG (1999) Oral Tablet Take 1 Tablet by mouth in the morning. 0 Active Denosumab 60 MG/ML Subcutaneous Solution Prefilled Syringe (Prolia) INJECT 60 MG UNDER THE SKIN ONCE EVERY 6 MONTHS 2 mL 1 08/07/2022 10/14/2023 Active Additional Information Patient not taking.Reported on 06/25/2023 Iron 325 (65 Fe) MG Oral Tablet [...] the morning. 30 Tablet 3 09/29/2023 Active documented as of this encounter (statuses as of 10/08/2023) Active Problems Problem Noted Date Diagnosed Date Chronic kidney disease, stage 3a 06/30/2023 Overview: Per CKD protocol History of breast cancer 10/20/2020 Dehydration 10/26/2019 Orthostatic hypotension 10/26/2019 Chemotherapy induced diarrhea 10/26/2019 Malignant neoplasm of lower- outer quadrant of left breast of female, estrogen receptor negative 10/01/2019 Cancer Staging:Clinical stage from 10/01/2019:Stage IIB(cT3, cN0, cM0, G3, ER-, MO-, HER2+) - Signed by Nikolas Daugherty MD on 10/01/2019 Difficult intubation 03/27/2015 Overview: Easy mask airway, BIT GATHERER unable to visualize vocal cords via direct [...] as of this encounter (statuses as of 10/08/2023) Immunizations No known immunizationsdocumented as of this encounter Social History Tobacco Use Types Packs/Day Years Used Date Smoking Tobacco: Former Smokeless Tobacco: Never Tobacco Cessation:Counseling Given: Not Answered Alcohol Use Standard Drinks/Week Comments No 0 (1 standard drink = 0.6 oz pur e alcohol) Sex and Gender Information Value Date Recorded Sex Assigned at Not on file Gender Identity Not on file Sexual Orientation Not on file Job Start Date Occupation Industry Not on file Not on file Not on file documented as of this encounter Last Filed Vital Signs Vital Sign Reading Time Taken Comments Blood Pressure 150/80 10/08/2023 2:45 PM EST Pulse 87 10/08/2023 2:45 PM EST Temperature 37.1 C (98.8 F) 10/08/2023 2:45 PM ES T Respiratory Rate 16 10/08/2023 2:45 PM EST Oxygen Saturation 97% 10/08/2023 2:45 PM EST Inhaled Oxygen Concentration - - Weight 108.1 kg (238 lb 6.4 oz) 10/08/2023 2:45 PM EST Height 167.6 cm (5' 6") 10/08/2023 2:45 PM EST Body Mass Index 38.48 10/08/2023 2:45 PM EST documented in this encounter Progress Notes * Nikolas Daugherty MD - 10/08/2023 2:45 PM EST Hematology/Oncology Outpatient Clinic note [facility] [address] [facility] [address] Name: Isha Garcia Date: 09/21/2021 CHIEF COMPLAINT: Isha Garcia is a 68 year old female patient here today for f/u visit. DIAGNOSIS: Left breast invasive lobular carcinoma, large primary tumor on MRI measuring about 6.3 cm. No axillary lymphadenopathy. ER and MO receptor negative, Her2/Carlos--> Positive. She had left mastectomy earlier in 2009 for extensive DCIS with TRAM flap reconstruction Left breast DCIS, hormonal positive She had a right mastectomy with reconstruction. No recurrent disease in the right side. Osteopenia on bone density done in July 2020, she received Prolia x3 but she says that she hada increasing bone pain and so she is not interested in continuing Prolia at this time. CURRENT TREATMENT: - observation since last week of September 2020. COMPLETED TREATMENT: -she completed 5 cycles of neoadjuvant chemotherapy with TCHP between 10/19/2019- 01/28/2020). 6th cycle was not given because of worsening kidney function test and anemia. Taxotere was given at 20% dose reduction because of diarrhea during the 5th cycle. -she completed Herceptin and pertuzumab maintenance in last week of September 2020. DIAGNOSTIC WORKUP: Previous breast cancer/DCIS history: -2008 left breast DCIS treated with lumpectomy, had a re-excision, 1.3 cm focus, no additional treatment received in the form radiation hormonal treatment (treated by Dr. Kruger). -2009, recurrence of left breast DCIS S/P bilateral mastectomies and TRAM flap reconstruction, extensive DCIS, intermediate grade, measuring about 10 cm noted, all margins clear, sentinel lymph node showed no tumor on H any but IHC was positive. ER and MO was positive. Received about 1 year of tamoxifen at that time. She had some nonspecific right-sided abdominal pain, she was seen at [facility], CT scan of the abdomen and pelvis done on 08/11/2019: -partially image breast showed 1.5 x 2.2 cm left breast mass which is new when compared to the previous imaging study done in 2014. -No intra-abdominal lymphadenopathy. -S/P hysterectomy noted. Diagnostic mammogram done on 08/24/2019: -3 cm solid mass in the far lateral left breast near the mid-axillary line. Left breast 6 o'clock stereotactic core needle biopsy: (09/02/2019) -high-grade DCIS, ER strongly positive in 100 malignamt cells, MO variable positive in 60 per malignamt cells, DCIS measuring about 8 mm. Extravasated mucin present. Left breast near pedicle ultrasound-guided core needle biopsy: -invasive pleomorphic lobular carcinoma, grade 3, ER and MO receptor negative, Her2/Carlos 3+ by IHC. Ki-67 35%. Invasive carcinoma measuring around 8 mm. PET-CT scan done on 09/27/2019: -3 x 2.6 cm left breast inferolateral masses compatible with neoplasm. -additional metabolic activity noted anterior and deep to the mass suspicious for additional areas of neoplasm -No metabolic active lymphadenopathy noted in the axilla or in the chest or anywhere else. Breast MRI (09/28/2019) -large lobulated mass in the lower outer quadrant in the left breast measuring 6.3 x 2.1 x 3.1 cm. Mild overlying skin thickening and enhancement noted. - Multiple areas of clumped non-mass enhancement in the lower outer and lower inner quadrants of the left reconstructed breast, one area represents the site of biopsied mammographically identified calcifications, representing multicentric DCIS in the reconstructed left breast. -No suspicious left axillary, subpectoral intramammary lymphadenopathy noted. -right breast showed no abnormal finding. HISTORY OF PRESENT ILLNESS: She has come the clinic for the follow-up, accompanied by her in the office. She is otherwise doing very well, stable weight around 238 lb, no nausea, no vomiting, no leg edema, she denies any tingling and numbness of extremities, No fever, no upper extremity lymphedema. No increasing headache. No focal weakness, no double vision. No increasing pain at any site. She denies any bleeding from the sites, no upper extremity edema. Past Medical History: Diagnosis Date Carcinoma in situ of breast left Malignant neoplasm of lower-outer quadrant of left breast of female, estrogen receptor negative (HCC) 10/01/2019 Social History Socioeconomic History Marital status: Spouse name: Not on file Number of children: Not on file Years of education: Not on file Highest education level: Not on file Occupational History Not on file Social Needs Financial resource strain: Not on file Food insecurity Worry: Not on file Inability: Not on file Transportation needs Medical: Not on file Non-medical: Not on file Tobacco Use Smoking status: Former Smoker Smokeless tobacco: Never Used Substance and Sexual Activity Alcohol use: No Drug use: No Sexual activity: Not on file Lifestyle Physical activity Days per week: Not on file Minutes per session: Not on file Stress: Not on file Relationships Social connections Talks on phone: Not on file Gets together: Not on file Attends gnosticist service: Not on file Active member of club or organization: Not on file Attends meetings of clubs or organizations: Not on file Relationship status: Not on file Intimate partner violence Fear of current or ex partner: Not on file Emotionally abused: Not on file Physically abused: Not on file Forced sexual activity: Not on file Other Topics Concern Service Not Asked Blood Transfusions No Caffeine Concern Not Asked Occupational Exposure Not Asked Hobby Hazards Not Asked Sleep Concern Not Asked Stress Concern Not Asked Weight Concern Not Asked Special Diet Not Asked Back Care Not Asked Exercise Not Asked Bike Helmet Not Asked Seat Belt Not Asked Self-Exams Not Asked Social History Narrative Not on file Vaping/E-Cigarette Use Vaping/E-Cigarette Use Never User Vaping/E-Cigarette Substances Vaping/E-Cigarette Devices Past Surgical History: Procedure Laterality Date BREAST LESION,OTHER,EXCISION 06/11/10 Left breast biopsy (DCIS) at [facility] - Dr. Kruger BREAST RECONSTRUCTION W/TRAM 08/16/2010 BREAST RECONSTRUCTION WITH TRAM FLAP performed [place] NORMA BAHENA [place] [facility] [place] LYMPH NODE DEEP AXIL Left 06/27/2020 BIOPSY LYMPH NODE DEEP AXILLARY OPEN performed by Jef Rooney MD at [facility] COLONOSCOPY, DIAGNOSTIC (RECTUM) 08/25/2015 adenomatous polyp, diverticulosis, [facility] NEC childhood EGD, W/ENDOSCOPIC US 03/06/2015 gallstones, pancreatic cyst, normal bx/ESOPHAGOGASTRODUODENOSCOPY (EGD), FLEXIBLE, TRANSORAL, ENDOSCOPIC ULTRASOUND performed by Vivek García DO at ENDOSCOPY [facility] ENDOMETRIAL THERMAL ABLATE EXPLORATION OF NIPPLE 02/01/09 Left breast duct excision (DCIS) by Dr. Bhagat at [facility] FINE NEEDLE ASPIRATION BIOPSY, W/O IMAGING GUIDANCE; 1ST LESION 06/23 Left breast (ADH) FNA W/IMAGE 06/23 Left breast INSER TUNN ACC DEV;5 YRS/OLDER N/A 10/12/2019 INSERT TUNNELED CENTRAL VENOUS ACCESS WITH SUBQ PORT performed by Vern Gonzalez MD at OR [facility] LAPAROSCOPY; CHOLECYSTECTOMY N/A 03/27/2015 03/27/2015 laparoscopy cholecystectomy - MASTECTOMY, PARTIAL 03/27/09 Left breast PM (no residual DCIS) at [facility] - Dr. Kruger MASTECTOMY, SIMPLE, COMPLETE 08/16/2010 MASTECTOMY SIMPLE COMPLETE performed by VINNY KRUGER at [facility] MASTECTOMY, SIMPLE, COMPLETE Left 06/27/2020 MASTECTOMY SIMPLE COMPLETE performed by Jef Rooney MD at [facility] MISCELLANEOUS ORDER ([facility] ONLY) 06/23 Left breast cyst aspirations MISCELLANEOUS ORDER ([facility] ONLY) 12/01/08 Cytology of left nipple discharge (papillary neoplasm) PARTIAL HYSTERECTOMY 2008 repair of rectal and bladder prolapse at same time REMOVAL OF TONSILS, UNDER AGE 13 childhood SENTINAL LYMPH NODE IDENTIFICATION, INTRAOP Left 06/27/2020 SENTINAL LYMPH NODE IDENTIFICATION, INTRAOP performed by Jef Rooney MD at [facility] US GUIDED BREAST BIOPSY 06/23 Left breast Family History Problem Relation Age of Onset Hypertension Father Heart Disorder Mother Other (Other) Mother breast cysts Other (Other) Grandmother (Maternal) breast cysts Other (Other) Sister breast cysts Hypertension Sister Review of patient's allergies indicates: Allergen Reactions Cephalexin [Cephalosporins] Hives Valproic Acid Current Outpatient Medications Medication Sig Dispense Refill IBUPROFEN 600 MG PO TABS 1 tablet by mouth three times daily x 2 weeks. Do not exceed 4 tablets in 24 hours. 90 Tab 1 Coenzyme Q10 (CO Q 10) 10 MG CAPS Take 3 Caps by mouth daily. Vitamins-Lipotropics (LIPO-FLAVONOID PLUS) TABS Take 1 Tab by mouth daily. (Patient not taking: Reported on 06/13/2023) Kelp 0.15 MG TABS Take by mouth. Acetaminophen 325 MG Oral Tablet Chewable Take by mouth. Vitamin D3 50 MCG (2000 UT) Oral Tablet Take 1 Tablet by mouth in the morning. Denosumab 60 MG/ML Subcutaneous Solution Prefilled Syringe (Prolia) INJECT 60 MG UNDER THE SKIN ONCE EVERY 6 MONTHS (Patient not taking: Reported on 06/25/2023) 2 mL 1 Iron 325 (65 Fe) MG Oral Tablet Take by mouth. Vitamin B Complex Oral Capsule Take by mouth. Carvedilol 3.125 MG Oral Tablet (Coreg) Take 1 Tablet by mouth 2 times a day with morning and evening meals. 180 Tablet 3 Torsemide 20 MG Oral Tablet (Demadex) Take 1 Tablet by mouth in the morning. 30 Tablet 3 No current facility-administered medications for this visit. OBJECTIVE: BP 150/80 (BP Site: Left Arm, BP Position: Sitting, BP Cuff Size: Large) | Pulse 87 | Temp 37.1 C(98.8 F) (Tympanic) | Resp 16 | Ht 1.676 m (5' 6") | Wt 108.1 kg (238 lb 6.4 oz) | SpO2 97% | BMI38.48 kg/m | BSA 2.24 m PHYSICAL EXAM: General Appearance: Normal - Healthy appearing patient in no acute distress Skin: Normal- No rashes, lesions or petechiae. HEENT: Normal - No oral or pharyngeal masses, ulceration or thrush noted, no sinus tenderness Lymph Nodes: Normal - No palpable lymph nodes in the neck or supraclavicular areas Lungs/Thorax: Normal - Clear to auscultation Heart: Normal - Regular rate and rhythm, normal S1, S2, no appreciable murmurs, rubs, gallops Pulses/Extremities: Normal - 2+ throughout and symmetrical, no edema b/l Abdomen: Normal - Soft, nontender, bowel sounds present, no appreciable hepatosplenomegaly, no palpable masses Musculoskeletal: Normal - No pain on palpation over bony prominence, no joint or bony deformity Neurologic: Normal - Grossly intact Psyche: No vegetative signs of depression. No upper extremity lymphedema. No palpable lymphadenopathy in the axilla LABS: Blood workup done on 06/13/2023: -WBC 51405, H&H of 11.5/37.6, Platelet count 377,000, MCV 93 -Serum iron: 50, TIBC 314, iron saturation 16% -Ferritin level -> 210 -BUN/Creat: 30/1.9, Calcium 9.8, normal liver function test I reviewed her blood workup done on 09/29/2023: -BUN/Creat: 20/1.6, Calcium 10.0, normal LFT. IMPRESSION: 68-year-old female, Oncology diagnosis: -history of left breast the DCIS, initially had a lumpectomy in 2008, no radiation or adjuvant hormonal treatment, she had a recurrence of left breast DCIS as about a year later, she then had bilateral mastectomies with reconstruction(TRAM flap), over 10 cm DCIS noted, received tamoxifen for about a year at that time. No radiation treatment. Now she has left breast invasive lobular carcinoma involving the pedicle in the left infra axillaryregion, measuring about 6.3 cm in the MRI, hormonal negative, Her2/Carlos--> Positive. Also has left breast DCIS which is hormonal positive, high-grade. PET-CT scan shows no evidence of distant metastasis, no enlarged the lymph nodes noted in the axilla. Clinical TNM staging --> T3 N0 M0, stage IIB. She received 5 cycles of TCHP (neoadjuvant chemotherapy)6th cycle was not received because of worsening anemia and kidney function test. She underwent left mastectomy and left axillary lymph zander dissection on 06/27/2020 at [facility], final pathology showed no residual carcinoma, 11/30 lymph node positive for metastatic disease, metastatic focus measuring just 0.5 mm. She completed Herceptin and pertuzumab maintenance treatment in last week of September 2020. She is under observation since then. Port has been removed. No upper extremity lymphedema, no leg edema, no new cardiac or pulmonary symptoms. She has underlying osteopenia, she was treated Prolia x3 but she is not ion Prolia at this time. She continues with oral vitamin-D and Calcium supplementation in the diet. Will continue to observe Will see her back in the clinic in about [address] Nikolas Daugherty Hem/Onc (This note was completed using the dictation program Fluency Direct. As such, there may be misspellings word substitutions, or other variations that should not change the essence of the clinical content of this encounter note. If there is need for further clarification, please direct questions to the provider listed above.) documented in this encounter Nursing Notes * Shobha Foster CMA - 10/08/2023 2:45 PM EST Patient identifed by name and birthdate Do you have any concerns about pain management for today's visit? No Living Will or Advance Directive for Health Care as noted on the problem list. [facility] is a way you can talk to your provider on line through e-mail. Would you like to sign up? I can activate it for you? NO Filed Vitals: 10/08/23 1445 BP: 150/80 Pulse: 87 Resp: 16 Temp: 37.1 C (98.8 F) TempSrc: Tympanic SpO2: 97% Weight: 108.1 kg (238 lb 6.4 oz) Height: 1.676 m (5' 6") Patient was instructed to not get up on the exam table/exam chair until directed and assisted by their provider; patient is to remain seated in the chair/ wheelchair/ exam table/ exam chair for fall prevention and safety reasons. Patient is aware to have assistance to step down off exam table/exam chair with personnel. Patient voiced full comprehension of instructions. documented in this encounter Plan of Treatment Upcoming Encounters Date Type Department Care Team (Latest Contact Info) Description 10/15/2023 1:30 PM EST Hospital Encounter ENDO [facility], Endoscopy Room [facility] [address] [facility] [place] [phone] Kimmie Altamirano MD [address] [place] [address] 10/15/2023 1:30 PM EST - 10/15/2023 2:00 PM EST Surgery ENDO [facility], Endoscopy Room [facility] [address] [place] [address] Kimmie Altamirano MD [address] [facility] [place] [id number] COLONOSCOPY FLEXIBLE PROXIMAL DIAGNOSTIC 02/18/2024 2:00 PM EDT Office Visit Nephrology, [place] [address] [place] [address] [place] [address] Marylou Andino MD [address] [place] [id number] 04/07/2024 2:45 PM EDT Office Visit [facility]ology[facility] [address] [facility] [place] [address] Nikolas Daugherty MD [address] [facility] [place] [address] Scheduled Procedures Name Priority Associated Diagnoses Date/Ti me COLONOSCOPY FLEXIBLE PROXIMAL DIAGNOSTIC Recall History of colon polyps 10/15/2023 1:30 PM EST Health Maintenance Due Date Last Done Comments DXA Scan 1956 Lipid Panel 1956 COVID-19 Vaccine (#1) 1956 Depression Screening 1968 CKD PHOS USE SMARTSET 31260 1974 Hepatitis C Screening 1974 DTaP,Tdap,and Td Vaccines (1 - Tdap) 1975 Zoster Vaccines (1 of 2) 2006 COLONOSCOPY-EVERY 5 YRS AGES 18-100 08/25/2020 08/25/2015 Pneumococcal Vaccine: 65+ Years (1 - PCV) 2021 Influenza Vaccine (FLU shot) (#1) 2023 GFR 03/29/2024 09/29/2023, 07/06/2023, 03/26/2023, Additional history exists CKD HGB USE SMARTSET 16143 06/13/202406/13, 06/13/2023, 03/26/2023, Additional history exists Albumin/Creatinine Ratio 06/25/2024 06/25/2023 Diabetes Screening 09/29/2026 09/29/2023, 0 06/13/2023, 03/26/2023, Additional history exists GARDASIL-HPV IMMUNIZATION SERIES Aged Out No longer eligible based on patient's age to complete this topic Hepatitis B Aged Out No longer eligi ble based on patient's age to complete this topic MENINGOCOCCAL (MENACTRA/MENVEO) Aged Out No longer eligible based on patient's age to complete this topic documented as of this encounter Medical Devices Implanted Type Area Automotive Heavy Mechanic Device Identifier Shelf Expiration Date Model / Serial / Lot Mesh 10 X 14 [id number] - [id number] Implanted:Qty : 1 on 08/16/2010 [place] [facility] [place]/A: Abdomen [employer] 04/17/2015 [id number] / / [id number] Port Power Mri W/8fr Cath - [id number] Implanted:Qty : 1 on 10/12/2019 by Vern Gonzalez MD at OR [facility] N/A: Subclavian CR BARD : PERIPHERAL VASCULAR 03/16/2021 [id number] / / [id number] documented as of this encounter Visit Diagnoses Diagnosis History of breast cancer- Primary Personal history of malignant neoplasm of breast History of colon polyps Personal history of colonic polyps documented in this encounter Advance Directives Latest Code Status [...] gokul occurred with: Not Discussed Care Teams Mine Exploration Engineer Relationship Specialty Start Date End Date Isha Escalante CRNP [address] [place] [address] PCP - General Nurse Practitioner 06/25/23 documented as of this encounter
--- OUTSIDE RECORDS SUMMARY | 2023-10-22 07:28 | External Medical Summary | Summary of Care ---
Author Name Unknown Organization [facility] Address [address] [place] [address] Phone [phone] Care Team Providers Care Assessor Name Role Phone Isha Escalante Primary Care Provider Reason for Visit * Reason Onset Date Comments Advice 10/13/2023 Encounter Details Date Type Department Care Team (Late st Contact Info) Description 10/13/2023 Telephone Nephrology, [address] [address] Services, Scheduling [address] [place] [address] Advice Allergies Active Allergy Reactions Criticality Noted Date Comments Cephalosporins Hives 02/21/2009 Valproic Acid 11/28/2014 documented as of this encounter (statuses as of 10/13/2023) Medications Medication Sig Dispensed Refills Start Date [...] as of this encounter (statuses as of 10/13/2023) Active Problems Problem Noted Date Diagnosed Date Chronic kidney disease, stage 3a 06/30/2023 Overview: Per CKD protocol History of breast cancer 10/20/2020 Dehydration 10/26/2019 Orthostatic hypotension 10/26/2019 Chemotherapy induced diarrhea 10/26/2019 Malignant neoplasm of lower- outer quadrant of left breast of female, estrogen receptor negative 10/01/2019 Cancer Staging:Clinical stage from 10/01/2019:Stage IIB(cT3, cN0, cM0, G3, ER-, VT-, HER2+) - Signed by Nikolas Daugherty MD on 10/01/2019 Difficult intubation 03/27/2015 Overview: Easy mask airway, 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 Pt is scheduled to have a colonoscopy on October 15. They want to know how the stages are determined and if the Kidney disease factors in pt having the colonoscopy. Should she take the Miralax with just water or is Gatorade ok? They would appreciate a call as soon as possible as she has to start the prep tomorrow, October 13 AM. Thank you [employer] Scheduling Service documented in this encounter Plan of Treatment Upcoming Encounters Date Type Department Care Team (Latest Contact Info) Description 10/15/2023 1:30 PM EST Hospital Encounter ENDO [facility], Endoscopy Room [facility] [address] [place] [phone] Kimmie Altamirano MD [address] [place] [address] 10/15/2023 1:30 PM EST - 10/15/2023 2:00 PM EST Surgery ENDO [facility], Endoscopy Room [facility] [address] [place] [phone] Kimmie Altamirano MD [address] [place] [address] COLONOSCOPY FLEXIBLE PROXIMAL DIAGNOSTIC 02/18/2024 2:00 PM EDT Office Visit [place] [facility] [address] [place] [address] [place] [address] Marylou Andino MD [address] [place] [address] 04/07/2024 2:45 PM EDT Office Visit Hematology/Oncology [facility] [place] [address] [facility] [place] [address] Nikolas Daugherty MD [address] [facility] [place] [address] Scheduled Procedures Name Priority Associated Diagnoses Date/Ti me COLONOSCOPY FLEXIBLE PROXIMAL DIAGNOSTIC Recall History of colon polyps 10/15/2023 1:30 PM EST Health Maintenance Due Date Last Done Comments DXA Scan 1955 Lipid Panel 1956 COVID-19 Vaccine (#1) 1956 Depression Screening 1968 CKD PHOS USE SMARTSET 88844 1974 Hepatitis C Screening 1974 DTaP,Tdap,and Td Vaccines (1 - Tdap) 1975 Zoster Vaccines (1 of 2) 2006 COLONOSCOPY-EVERY 5 YRS AGES 18-100 08/25/2020 08/25/2015 Pneumococcal Vaccine: 65+ Years (1 - PCV) 2021 Influenza Vaccine (FLU shot) (#1) 2023 GFR 03/29/2024 09/29/2023, 07/06/2023, 03/26/2023, Additional history exists CKD HGB USE SMARTSET 34399 06/13/202406/13, 06/13/2023, 03/26/2023, Additional history exists Albumin/Creatinine [...] this encounter Medical Devices Implanted Type Area Cotton Header Device Identifier Shelf Expiration Date Model / Serial / Lot Mesh 10 X 14 [id number] - [id number] [place]planted:Q[place] : 1 on 08[place]16/[place] [facility] [place]: Abdomen [employer] 04/17/2015 [id number] / / [id number] Port Power Mri W/8fr Cath - [id number] Implanted:Qty : 1 on 10/12/2019 by Vern Gonzalez MD at OR [facility] N/A: Subclavian CR BARD : PERIPHERAL VASCULAR 03/16/2021 [id number] / / [id number] documented as of this encounter Advance Directives [...] gokul occurred with: Not Discussed Care Teams Assessor Relationship Specialty Start Date End Date Isha Escalante CRNP [address] [place] [address] PCP - General Nurse Practitioner 06/25/23 documented as of this encounter
--- OUTSIDE RECORDS SUMMARY | 2023-10-22 07:28 | External Medical Summary | Summary of Care ---
Author Name Unknown Organization [facility] Address [address] [place] [address] Phone [phone] Care Team Providers Care Assembler Hydraulic Backhoe Name Role Phone Isha Escalante Primary Care Provider Reason for Visit * Reason Onset Date Comments Advice 10/13/2023 Encounter Details Date Type Department Care Team (Late st Contact Info) Description 10/13/2023 Telephone Nephrology, [address] [address] Services, Scheduling [address] [place] [address] Advice Allergies Active Allergy Reactions Criticality Noted [...] from 10/01/2019:Stage IIB(cT3, cN0, cM0, G3, ER-, [place]-, HER2+) - Signed by Nikolas Daugherty MD on 10/01/2019 Difficult intubation 03/27/2015 Overview: Easy mask airway, 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 * Telephone Encounter - Cordelia Gandhi LPN - 10/13/2023 3:14 PM EST Marylou Andino MD Kidney stages are determine as eGFR.This has many variables ,Serum creatinine is one of them. Staging is from 3-5, 5 being most severe, and the EGFR is less than 15. Please follow the instructions as per colonoscopy preparation, it does not matter whether it is water or Gatorade. DR Andino * Telephone Encounter - Abi Cintron OSA [...] prep tomorrow, October 13 AM. Thank you [employer] Scheduling Service documented in this encounter Plan of Treatment Upcoming Encounters Date Type Department Care Team (Latest Contact Info) Description 10/15/2023 1:30 PM EST Hospital Encounter ENDO [facility], Endoscopy Room [facility] [address] [place] [phone] Kimmie Altamirano MD [address] [place] [id number] 10/15/2023 1:30 PM EST - 10/15/2023 2:00 PM EST Surgery ENDO [facility], Endoscopy Room [facility] [address] [place] [phone] Kimmie Altamirano MD [address] [facility] [place] [address] COLONOSCOPY FLEXIBLE PROXIMAL DIAGNOSTIC 02/18/2024 2:00 PM EDT Office Visit Nephrology, [address] [place] [address] Marylou Andino MD [address] [place] [address] 04/07/2024 2:45 PM EDT Office Visit Hematology/Oncology [facility] [address] [place] [address] Nikolas Daugherty MD [address] [place] [address] Scheduled Procedures Name Priority Associated Diagnoses Date/Ti me COLONOSCOPY FLEXIBLE PROXIMAL DIAGNOSTIC Recall History of colon polyps 10/15/2023 1:30 PM EST Health Maintenance Due Date Last Done Comments DXA Scan 1956 Lipid Panel 1956 COVID-19 Vaccine (#1) 1956 Depression Screening 1968 CKD PHOS USE SMARTSET 92535 1974 Hepatitis C Screening 1974 DTaP,Tdap,and Td Vaccines (1 - Tdap) 1975 Zoster Vaccines (1 of 2) 2006 COLONOSCOPY-EVERY 5 YRS AGES 18-100 08/25/2020 08/25/2015 Pneumococcal Vaccine: 65+ Years (1 - PCV) 2021 Influenza Vaccine (FLU shot) (#1) 2023 GFR 03/29/2024 09/29/2023, 07/2 06/2023, 03/26/2023, Additional history exists CKD HGB USE SMARTSET 15193 06/13/202406/13, 06/13/2023, 03/26/2023, Additional history exists Albumin/Creatinine [...] this encounter Medical Devices Implanted Type Area Explosives Mixer Operator Device Identifier Shelf Expiration Date Model / Serial / Lot Mesh 10 X 14 [id number] - [id number] Implanted:Qty : 1 on 08/16/2010 at OR [facility] [place] N/A: Abdomen [employer] 04/17/2015 [id number] / / [id number] Port Power Mri W/8fr Cath - [id number] Implanted:Qty : 1 on 10/12/2019 by Vern Gonzalez MD at OR [facility] N/A: Subclavian CR BARD : PERIPHERAL VASCULAR 03/16/2021 [id number] / / [id number] documented as of this encounter Advance Directives [...] gokul occurred with: Not Discussed Care Teams Assembler Hydraulic Backhoe Relationship Specialty Start Date End Date Isha Escalante CRNP [address] [place] [address] PCP - General Nurse Practitioner 06/25/23 documented as of this encounter
--- OUTSIDE RECORDS SUMMARY | 2023-10-22 07:28 | External Medical Summary | Summary of Care ---
Author Name Unknown Organization [facility] Address [address] [place] [address] Phone [phone] Care Team Providers Care Product Test Specialist Name Role Phone Isha Escalante Primary Care Provider Reason for Visit * Reason Comments Follow Up Encounter Details Date Type Department Care Team (Late st Contact Info) Description 09/29/2023 1:40 PM EST Office Visit Nephrology, [address] [address] Marylou Andino MD [address] [place] [address] Stage 3a chronic kidney disease (HCC)*; HTN, goal below 140/90 Allergies Active Allergy Reactions Criticality Noted Date Comments Cephalosporins Hives 02/21/2009 Valproic Acid 11/28/2014 documented as of this encounter (statuses as of 09/29/2023) Medications Medication Sig Dispensed Refills Start Date End Date Status IBUPROFEN 600 MG PO TABSIndications: Carcinoma in situ of breast 1 tablet by mouth three times daily x 2 weeks. Do not exceed 4 tablets in 24 hours. 90 Tab 1 1 Active Coenzyme Q10 (CO Q 10) 10 MG CAPS Take 3 Caps by mouth daily. 0 Active Vitamins-Lipotro pics (LIPO-FLAVONOID PLUS) TABS Take 1 Tab by mouth daily. 0 Active Kelp 0.15 MG TABS Take by mouth. 0 Active Acetaminophen 325 MG Oral Tablet Chewable Take by mouth. 0 Activ e Vitamin D3 50 MCG (2000 UT) Oral Tablet Take 1 Tablet by mouth in the morning. 0 Active Denosumab 60 MG/ML Subcutaneous Solution Prefilled Syringe (Prolia) INJECT 60 MG UNDER THE SKIN ONCE EVERY 6 MONTHS 2 mL 1 2 10/14/20 Active Additional Information Patient not taking.Reported on 06/25/2023 Iron 325 (65 Fe) MG Oral Tablet Take by mouth. 0 Active Vitamin B Complex Oral Capsule Take by mouth. 0 Active Carvedilol 3.125 MG Oral Tablet (Coreg) Take 1 Tablet by mouth 2 times a day with morning and evening meals. 180 Tablet 3 3 Active Torsemide 20 MG Oral Tablet (Demadex) Take 1 Tablet by mouth in the morning. 30 Tablet 3 3 Active Torsemide 20 MG Oral Tablet (Demadex) Take 3 Tablets by mouth in the morning. 270 Tablet 3 3 09/29/20 23 Discontinued(Ref ill) hydrALAZINE HCl 50 MG Oral Tablet (Apresoline) Take 1 Tablet by mouth in the morning and 1 Tablet at noon and 1 Tablet before bedtime. 270 Tablet 3 3 09/29/20 23 Discontinued amLODIPine Besylate 10 MG Oral Tablet (Norvasc) Take 1 Tablet by mouth in the morning. 30 Tablet 3 3 09/29/20 23 Discontinued documented as of this encounter (statuses as of 09/29/2023) Active Problems Problem Noted Date Diagnosed Date Chronic kidney disease, stage 3a 06/30/2023 Overview: Per CKD protocol History of breast cancer 10/20/2020 Dehydration 10/26/2019 Orthostatic hypotension 10/26/2019 Chemotherapy induced diarrhea 10/26/2019 Malignant neoplasm of lower- outer quadrant of left breast of female, estrogen receptor negative 10/01/2019 Cancer Staging:Clinical stage from 10/01/2019:Stage IIB(cT3, cN0, cM0, G3, ER-, NJ-, HER2+) - Signed by Nikolas Daugherty MD on 10/01/2019 Difficult intubation 03/27/2015 Overview: Easy mask airway, AMPOULE EXAMINER unable to visualize vocal cords via direct [...] as of this encounter (statuses as of 09/29/2023) Immunizations No known immunizationsdocumented as of this [...] Sign Reading Time Taken Comments Blood Pressure 133/73 09/29/2023 1:55 PM EST Pulse 86 09/29/2023 1:55 PM EST Temperature 36.9 C (98.4 F) 09/29/2023 1:55 PM ES T Respiratory Rate - - Oxygen Saturation - - Inhaled Oxygen Concentration - - Weight 107.4 kg (236 lb 12.8 oz) 09/29/2023 1:55 PM EST Height - - Body Mass Index 38.22 06/13/2023 2:04 PM EDT documented in this encounter Progress Notes * Marylou Andino MD - 09/29/2023 1:51 PM EST Isha Garcia is a 68 year old female. No chief complaint on file. HPI:Initially seen as hospital follow up. Admitted to [facility]-05/23 with hypertensive urgency(sBP-170-190), worsening lower leg edema, Sravan I on CKD( cr-2.3) PMH-Left breast invasive lobular carcinoma, large primary tumor on MRI No axillary lymphadenopathy.ER and NJ receptor negative, Her2/Carlos--> Positive. --she completed Herceptin and pertuzumab maintenance in last week of September 2020. -s/p 5 cycles of neoadjuvant chemotherapy with TCHP between 10/19/2019- 01/28/2020). 6th cycle was notgiven because of worsening kidney function test and anemia. Taxotere was given at 20% dose reduction because of diarrhea during the 5th cycle. 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 No recurrent disease in the right side. Osteopenia on bone density done in July 2020, she received Prolia x3 but she says that she hada increasing bone pain and so she is not interested in continuing Prolia at this time. -HTN, h/o colonic polyps., bipolar disorder,(last confinement in 2013) class 3 obesity - h/o PRN NSAIDS in the past. -CKD stage IIIA since November 2019, with baseline creatinine fluctuating between 1.2-1.9. - Normal USS - Benign U/a On review- 06/25/23- she was comfortable but had tangential thought process with labile mood at times. According to the she has not been very compliant with her blood pressure medications, she has been skipping doses and on occasions has refused taking medications at all.No urinary symptoms.No pedal edema-- this has been same as the last visit. Home readings has been --130--140' s/ 65-80 PMH: Patient Active Problem List Diagnosis Code Carcinoma in situ of breast D05.90 BMI 35-39 ISOLATED (SEE ACTUAL BMI) E66.9 Carcinoma in situ of breast D05.90 Follow-up examination, following other surgery Z09 Anemia D64.9 Lower urinary tract infectious disease N39.0 History of recurrent UTIs Z87.440 Urethrocele, female N81.0 Cholelithiasis K80.20 Difficult intubation T88.4XXA Malignant neoplasm of lower-outer quadrant of left breast of female, estrogen receptor negative C50.512, Z17.1 Dehydration E86.0 Orthostatic hypotension I95.1 Chemotherapy induced diarrhea K52.1, T45.1X5A History of breast cancer Z85.3 Chronic kidney disease, stage 3a (HCC) N18.31 Current Outpatient Medications Medication Sig Dispense Refill IBUPROFEN 600 MG PO TABS 1 tablet by mouth three times daily x 2 weeks. Do not exceed 4 tablets in 24 hours. (Patient not taking: Reported on 06/25/2023) 90 Tab 1 Coenzyme Q10 (CO Q 10) 10 MG CAPS Take 3 Caps by mouth daily. Vitamins-Lipotropics (LIPO-FLAVONOID PLUS) TABS Take 1 Tab by mouth daily. (Patient not taking: Reported on 06/13/2023) Kelp 0.15 MG TABS Take by mouth. (Patient not taking: Reported on 06/25/2023) Acetaminophen 325 MG Oral Tablet Chewable Take by mouth. (Patient not taking: Reported on 06/25/2023) Vitamin D3 50 MCG (2000 UT) Oral Tablet Take 1 Tablet by mouth in the morning. Denosumab 60 MG/ML Subcutaneous Solution Prefilled Syringe (ProlMobiVita) INJECT 60 MG UNDER THE SKIN ONCE EVERY 6 MONTHS (Patient not taking: Reported on 06/25/2023) 2 mL 1 Iron 325 (65 Fe) MG Oral Tablet Take by mouth. Vitamin B Complex Oral Capsule Take by mouth. Torsemide 20 MG Oral Tablet (Demadex) Take 3 Tablets by mouth in the morning. 270 Tablet 3 Carvedilol 3.125 MG Oral Tablet (Coreg) Take 1 Tablet by mouth 2 times a day with morning and evening meals. 180 Tablet 3 hydrALAZINE HCl 50 MG Oral Tablet (Apresoline) Take 1 Tablet by mouth in the morning and 1 Tablet at noon and 1 Tablet before bedtime. 270 Tablet 3 No current facility-administered medications for this visit. Past Medical History: Diagnosis Date Carcinoma in situ of breast left Malignant neoplasm of lower-outer quadrant of left breast of female, estrogen receptor negative (HCC) 10/01/2019 Past Surgical History: Procedure Laterality Date BREAST LESION,OTHER,EXCISION 06/11/10 Left breast biopsy ([place]IS) [place] [facility] [place]. Kruger BREAST RECONSTRUCTION W/TRAM 08/16/2010 BREAST RECONSTRUCTION WITH TRAM FLAP performed by NORMA BAHENA at OR [facility] BX LYMPH NODE DEEP AXIL Left 06/27/2020 BIOPSY LYMPH NODE DEEP AXILLARY OPEN performed by Jef Rooney MD at OR [facility] COLONOSCOPY, DIAGNOSTIC (RECTUM) 08/25/2015 adenomatous polyp, diverticulosis, repeat 5 yrs/[facility] DENTAL SURGERY PROCEDURE NEC childhood EGD, W/ENDOSCOPIC US 03/06/2015 gallstones, pancreatic cyst, normal bx/ESOPHAGOGASTRODUODENOSCOPY (EGD), FLEXIBLE, TRANSORAL, ENDOSCOPIC ULTRASOUND performed by Vivek García DO at ENDOSCOPY [facility] ENDOMETRIAL THERMAL ABLATE EXPLORATION OF NIPPLE 02/01/09 Left breast duct excision (DCIS) by Dr. Bhagat at [facility] FINE NEEDLE ASPIRATION BIOPSY, W/O IMAGING GUIDANCE; 1ST LESION 06/23 Left breast (ADH) FNA W/IMAGE 06/23 Left breast INSER TUNN ACC DEV;5 YRS/OLDER N/A 10/12/2019 INSERT TUNNELED CENTRAL VENOUS ACCESS WITH SUBQ PORT performed by Vern Gonzalez MD at OR [facility] LAPAROSCOPY; CHOLECYSTECTOMY N/A 03/27/2015 03/27/2015 laparoscopy cholecystectomy - MASTECTOMY, PARTIAL 03/27/09 Left breast PM (no residual DCIS) at [facility] [place]. Kruger MASTECTOMY, SIMPLE, COMPLETE 08/16/2010 MASTECTOMY SIMPLE COMPLETE performed by VINNY KRUGER at [facility] MASTECTOMY, SIMPLE, COMPLETE Left 06/27/2020 MASTECTOMY SIMPLE COMPLETE performed by Jef Rooney MD at [facility] MISCELLANEOUS ORDER ([facility] ONLY) 06/23 Left breast cyst aspirations MISCELLANEOUS ORDER ([facility] ONLY) 12/01/08 Cytology of left nipple discharge (papillary neoplasm) PARTIAL HYSTERECTOMY 2008 repair of rectal and bladder prolapse at same time REMOVAL OF TONSILS, UNDER AGE 13 childhood SENTINAL LYMPH NODE IDENTIFICATION, INTRAOP Left 06/27/2020 SENTINAL LYMPH NODE IDENTIFICATION, INTRAOP performed by Jef Rooney MD at [facility] US GUIDED BREAST BIOPSY 06/23 Left breast Review of patient's allergies indicates: Allergen Reactions Cephalexin [Cephalosporins] Hives Valproic Acid Family History Problem Relation Age of Onset Hypertension Father Heart Disorder Mother Other (Other) Mother breast cysts Other (Other) Grandmother (Maternal) breast cysts Other (Other) Sister breast cysts Hypertension Sister Family Status Relation Status Fa at age 84 Mo Alive Sis Alive Segun Alive 12 years MGMA (Not Specified) Sis (Not Specified) Sis (Not Specified) Social History Socioeconomic History Marital status: Spouse name: Not on file Number of children: Not on file Years of education: Not on file Highest education level: Not on file Occupational History Not on file Tobacco Use Smoking status: Former Smokeless tobacco: Never Vaping Use Vaping Use: Never used Substance and Sexual Activity Alcohol use: No Drug use: No Sexual activity: Not on file Other Topics Concern [...] Asked Social History Narrative Not on file Social Determinants of Health Financial Resource Strain: Not on file Food Insecurity: Not on file Transportation Needs: Not on file Physical Activity: Not on file Stress: Not on file Social Connections: Not on file Intimate Partner Violence: Not on file Housing Stability: Not on file Latest Ref Rng 09/22/2020 10/13/2020 02/16/2021 09/21/2021 03/22/2022 09/25/2022 03/26/2023 NEPH-FLOW Bun 6 - 20 mg/dL 31 (H) 29 (H) 29 (H) 21 (H) 23 (H) 25 (H) 27 (H) Cr 0.5 - 1.0 mg/dL 1.6 (H) 1.5 (H) 1.2 (H) 1.2 (H) 1.2 (H) 1.3 (H) 1.2 (H) eGFR >=60 mL/min 48.4 (L) 47 (L) 50 (L) 45 (L) 53 (L) eGFR >60 34.0 (L) 37.0 (L) K 3.5 - 5.1 mmol/L 4.0 3.7 4.3 4.2 4.3 4.0 4.2 Hb 12.0 - 15.3 g/dL 10.8 (L) 10.1 (L) 10.4 (L) 11.1 (L) 10.7 (L) 12.0 10.9 (L) Latest Ref Rng 06/13/2023 NEPH-FLOW Bun 6 - 20 mg/dL 30 (H) Cr 0.5 - 1.0 mg/dL 1.9 (H) eGFR >=60 mL/min 28 (L) eGFR >60 K 3.5 - 5.1 mmol/L 4.1 Hb 12.0 - 15.3 g/dL 11.5 (L) Constitutional- Well , no complains, obese Eyes: (-) negative, no pain, blurred vision, or redness ENT: (-) negative: no headaches, vertigo, hearing loss, sinus, ear, or throat problems Cardiovascular: (-) negative: no chest pain, dyspnea, syncope, or palpitations Pulmonary : (-) negative: no cough, wheezing, or shortness of breath Abdominal/GI: (-) negative: no pain, heartburn, dysphagia, bleeding, change in bowel habits, nauseaor vomiting Extremities, no edema Skin - warm , no rashes Psy - Normal mood and affect Objective: There were no vitals taken for this visit. GEN: Comfortable, obese, pressured speech, tangential thinking HEENT: NC/AT, OP clear NECK: supple CV: RRR no M/R/G PULM: CTAB ABD: soft, non-tender, obese abdomen EXT: No Edema NEURO: Awake and alert Skin: no rashes or significant lesions BP Readings from Last 5 Encounters: 06/25/23 99/62 03/26/23 169/87 09/25/22 145/65 03/22/22 153/84 11/02/21 132/72 Wt Readings from Last 5 Encounters: 06/25/23 110.4 kg (243 lb 6.4 oz) 03/26/23 115.8 kg (255 lb 3.2 oz) 09/25/22 111.4 kg (245 lb 9.6 oz) 03/22/22 115.1 kg (253 lb 11.2 oz) 09/21/21 110.3 kg (243 lb 3.2 oz) ASSESSMENT: CKD stage IIIA/b--non protenuric -sequelae of chemotherapy/ HTN. There is a prerenal element to her fluctuations renal function. Baseline creatinine in mid to late 1s, benign U/A --her blood pressure has been very variable in the past as she does not take the antihypertensives as prescribed. -mild- risk of progression to ESRD Blood pressure--He readings has been better than before --130-140's - D/C hydralazine , start on Olmesartan 40 mg daily - Decrease torsemide 20 mg daily - BMP in 2-3 weeks, Continue to record BP for the next 2 weeks. - needs to drink at least 65-70 oz of fluid most of which should be water every day. CKD MBD-ordered PTH vitamin-D levels-continue on vitamin-D supplements for now. She is no longer onProlia, questionable benefit in CKD MBD. Anemia-she is iron depleted continue on iron replacement. -Preventative strategies to delay progression of CKD - ACEI, BP control, glycemic control and NO NSAIDS discussed and patient expressed understanding RTC in 4 months with ZBIGNIEW Andino MD This chart was completed in part utilizing [employer] Direct Speech Voice Recognition Software. Randomword insertions, pronoun errors, and incomplete sentences are an occasional consequence of this system due to software limitations, and ambient noise. Any questions or concerns about the content, text, or information contained within the body of this dictation should be directly addressed to the provider for clarification. documented in this encounter Nursing Notes * Cordelia Gandhi LPN - 09/29/2023 1:55 PM EST Chief Complaint Patient presents with Follow Up documented in this encounter Plan of Treatment Upcoming Encounters Date Type Department Care Team (Latest Contact Info) Description 09/29/2023 2:40 PM EST Laboratory Laboratory, [facility] [address] [place] [address] [facility], Lab [address] [place] [address] Stage 3a chronic kidney disease (HCC) 10/08/2023 2:45 PM EST Office Visit Hematology/Oncolog y Debby Cade [place] [address] [place] [address] Nikolas Daugherty MD [address] [place] [address] 10/15/2023 1:30 PM EST Hospital Encounter [facility], Endoscopy Room [facility] [address] [facility] [place] [phone] Kimmie Altamirano MD [address] [place] [address] [place] [address] 10/15/2023 1:30 PM EST - 10/15/2023 2:00 PM EST Surgery ENDO [facility], Endoscopy Room [facility] [address] [facility] [place] [phone] Kimmie Altamirano MD [address] [place] [address] COLONOSCOPY FLEXIBLE PROXIMAL DIAGNOSTIC 02/18/2024 2:00 PM EDT Office Visit Nephrology, [address] [place] [address] [place] [address] Marylou Andino MD [address] [place] [address] Scheduled Orders Name Type Priority Associated Diagnoses Orde r Schedule COMPREHENSIVE METABOLIC PANEL Lab Routine Stage 3a chronic kidney disease (HCC) Expected: 03/29/2024, Expires: 09/29/2024 COMPREHENSIVE METABOLIC PANEL Lab Routine Stage 3a chronic kidney disease (HCC) Expected: 10/13/2023, Expires: 09/29/2024 Scheduled Procedures Name Priority Associated Diagnoses Date/Ti me COLONOSCOPY FLEXIBLE PROXIMAL DIAGNOSTIC Recall History of colon polyps 10/15/2023 1:30 PM EST Health Maintenance Due Date Last Done Comments DXA Scan 1955 Lipid Panel 1956 COVID-19 Vaccine (#1) 1956 Depression Screening 1968 CKD PHOS USE SMARTSET 07822 1974 Hepatitis C Screening 1974 DTaP,Tdap,and Td Vaccines (1 - Tdap) 1975 Zoster Vaccines (1 of 2) 2006 COLONOSCOPY-EVERY 5 YRS AGES 18-100 08/25/2020 08/25/2015 Pneumococcal Vaccine: 65+ Years (1 - PCV) 2021 Influenza Vaccine (FLU shot) (#1) 2023 GFR 12/14/2023 06/13/2023, 03/17, 09/25/2022, Additional history exists CKD HGB USE SMARTSET 03948 06/13/202406/13, 06/13/2023, 03/26/2023, Additional history exists Albumin/Creatinine Ratio 06/25/2024 06/25/2023 Diabetes Screening 06/13/2026 06/13/2023, 0 03/26/2023, 09/25/2022, Additional history exists GARDASIL-HPV IMMUNIZATION SERIES Aged Out No longer eligible based on patient's age to complete this topic Hepatitis B Aged Out No longer eligi ble based on patient's age to complete this topic MENINGOCOCCAL (MENACTRA/MENVEO) Aged Out No longer eligible based on patient's age to complete this topic documented as of this encounter Medical Devices Implanted Type Area Pharmacist'S Aide Device Identifier Shelf Expiration Date Model / Serial / Lot Mesh 10 X 14 [id number] - [id number] Implanted:Qty : 1 on 08/16/[address] [facility] N/A: Abdomen [employer] 04/17/2015 [id number] / / [id number] Port Power Mri W/8fr Cath - [id number] Implanted:Qty : 1 on 10/12/2019 by Vern Gonzalez MD at OR [facility] N/A: Subclavian CR BARD : PERIPHERAL VASCULAR 03/16/2021 [id number] / / [id number] documented as of this encounter Visit Diagnoses Diagnosis Stage 3a chronic kidney disease (HCC)- Primary HTN, goal below 140/90 Unspecified essential hypertension Stage 3a chronic kidney disease (HCC) History of colon polyps Personal history of [...] gokul occurred with: Not Discussed Care Teams Product Test Specialist Relationship Specialty Start Date End Date Isha Escalante CRNP [address] [place] [address] PCP - General Nurse Practitioner 06/25/23 documented as of this encounter
--- OUTSIDE RECORDS SUMMARY | 2023-10-22 07:28 | External Medical Summary | Summary of Care ---
Author Name Unknown Organization [facility] Address [address] [place] [address] Phone [phone] Care Team Providers Care Electro Plater Name Role Phone Isha Escalante Primary Care Provider Reason for Visit * Reason Comments Outpatient Testing Encounter Details Date Type Department Care Team (Late st Contact Info) Description 09/29/2023 2:40 PM EST Laboratory Laboratory, [facility] [address] [place] [phone] [facility], Lab [address] [place] [address] Stage 3a chronic kidney disease (HCC) Allergies Active Allergy Reactions Criticality Noted Date [...] from 10/01/2019:Stage IIB(cT3, cN0, cM0, G3, ER-, CA-, HER2+) - Signed by Nikolas Daugherty MD on 10/01/2019 Difficult intubation 03/27/2015 Overview: Easy mask airway, STEVEDORE DOCK unable to visualize vocal cords via direct [...] Department Care Team (Latest Contact Info) Description 10/08/2023 2:45 PM EST Office Visit Hematology/Oncology Alen Alyssia [place] [address] [facility] [place] [address] Nikolas Daugherty MD [address] [facility] [place] [address] 10/15/2023 1:30 PM EST Hospital Encounter ENDO [facility], Endoscopy Room [facility] [address] [facility] [place] [phone] Kimmie Altamirano MD [address] [place] [phone] 10/15/2023 1:30 PM EST - 10/15/2023 2:00 PM EST Surgery ENDO [facility], Endoscopy Room [facility] [address] [facility] [place] [phone] Kimmie Altamirano MD [address] [place] [phone] COLONOSCOPY FLEXIBLE PROXIMAL DIAGNOSTIC 02/18/2024 2:00 PM EDT Office Visit Nephrology, [address] [place] [address] Marylou Andino MD [address] [place] [address] [place] [address] Pending Results Name Type Priority Associated Diagnoses Date /Time COMPREHENSIVE METABOLIC PANEL Lab Routine Stage 3a chronic kidney disease (HCC) 09/29/2023 2:31 PM EST Scheduled Procedures Name Priority Associated Diagnoses Date/Ti me COLONOSCOPY FLEXIBLE PROXIMAL DIAGNOSTIC Recall History of colon polyps 10/15/2023 1:30 PM EST Health Maintenance Due Date Last Done Comments DXA Scan 1956 Lipid Panel 1956 COVID-19 Vaccine (#1) 1956 Depression Screening 1968 CKD PHOS USE SMARTSET 34318 1974 Hepatitis C Screening 1974 DTaP,Tdap,and Td Vaccines (1 - Tdap) 1975 Zoster Vaccines (1 of 2) 2006 COLONOSCOPY-EVERY 5 YRS AGES 18-100 08/25/2020 08/25/2015 Pneumococcal Vaccine: 65+ Years (1 - PCV) 2021 Influenza Vaccine (FLU shot) (#1) 2023 GFR 12/14/2023 06/13/2023, 03/17, 09/25/2022, Additional history exists CKD HGB USE SMARTSET 13394 06/13/202406/13, 06/13/2023, 03/26/2023, Additional history exists Albumin/Creatinine [...] this encounter Medical Devices Implanted Type Area Cutlet Maker Pork Device Identifier Shelf Expiration Date Model / Serial / Lot Mesh 10 X 14 [id number] - [id number] Implanted:Qty : 1 on 08/16/2010 at OR [facility] N/A: Abdomen [employer] 04/17/2015 [id number] / / [id number] Port Power Mri W/8fr Cath - [id number] Implanted:Qty : 1 on 10/12/2019 by Vern Gonzalez MD at OR [facility] N/A: Subclavian CR BARD : PERIPHERAL VASCULAR 03/16/2021 [id number] / / [id number] documented as of this encounter Visit Diagnoses Diagnosis Stage 3a chronic kidney disease (HCC) History [...] gokul occurred with: Not Discussed Care Teams Electro Plater Relationship Specialty Start Date End Date Isha Escalante CRNP [address] [place] [address] PCP - General Nurse Practitioner 06/25/23 documented as of this encounter
--- OUTSIDE RECORDS SUMMARY | 2023-10-22 07:28 | External Medical Summary | Summary of Care ---
Author Name Unknown Organization [facility] Address [address] [facility] [place] [address] Phone [phone] Care Team Providers Care Ui Software Engineer Name Role Phone Isha Escalante Primary Care Provider Reason for Visit * Reason Comments Outpatient Testing Encounter Details Date Type Department Care Team (Late st Contact Info) Description 10/15/2023 3:10 PM EST Laboratory Laboratory, [facility] [address] [place] [id number] [facility] [address] [place] [address] Stage 3a chronic kidney disease (HCC) Allergies Active Allergy Reactions Criticality Noted Date Comments Cephalosporins Hives 02/21/2009 Valproic Acid 11/28/2014 documented as of this encounter (statuses as of 10/15/2023) Medications Medication Sig Dispensed Refills Start Date [...] as of this encounter (statuses as of 10/15/2023) Active Problems Problem Noted Date Diagnosed Date [...] Difficult intubation 03/27/2015 Overview: Easy mask airway, 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 via direct [...] as of this encounter (statuses as of 10/15/2023) Immunizations No known immunizationsdocumented as of this [...] PM EDT Office Visit Nephrology, [facility] [address] [facility] [place] [address] Marylou Andino MD [address] [place] [address] 04/07/2024 2:45 PM EDT Office Visit Hematology/Oncology Debby C[facility] [place] [address] [facility] [place] [address] Nikolas Daugherty MD [address] [facility] [place] [address] Pending Results Name Type Priority Associated Diagnoses Date /Time COMPREHENSIVE METABOLIC PANEL Lab Routine Stage 3a chronic kidney disease (HCC) 10/15/2023 4:00 PM EST Scheduled Procedures Name Priority Associated Diagnoses Date/Ti me COLONOSCOPY FLEXIBLE PROXIMAL DIAGNOSTIC Recall History of colon polyps 10/15/2023 1:39 PM EST Health Maintenance Due Date Last Done Comments DXA Scan 1955 Lipid Panel 1956 COVID-19 Vaccine (#1) 1956 Depression Screening 1968 CKD PHOS USE SMARTSET 63504 1974 Hepatitis C Screening 1974 DTaP,Tdap,and Td Vaccines (1 - Tdap) 1975 Zoster Vaccines (1 of 2) 2006 Pneumococcal Vaccine: 65+ Years (1 - PCV) 2021 Influenza Vaccine (FLU shot) (#1) 2023 GFR 03/29/2024 09/29/2023, 05/18, 03/26/2023, Additional history exists CKD HGB USE SMARTSET 20308 06/13/202406/13, 06/13/2023, 03/26/2023, Additional history exists Albumin/Creatinine Ratio 06/25/2024 06/25/2023 Diabetes Screening 09/29/2026 09/29/2023, 0 06/13/2023, 03/26/2023, Additional history exists COLONOSCOPY-EVERY 5 YRS AGES 18-100 10/15/2028 10/15/2023, 08/25/2015 GARDASIL-HPV IMMUNIZATION SERIES Aged Out No longer eligible based on patient's age to complete this topic Hepatitis B Aged Out No longer eligi ble based on patient's age to complete this topic MENINGOCOCCAL (MENACTRA/MENVEO) Aged Out No longer eligible based on patient's age to complete this topic documented as of this encounter Medical Devices Implanted Type Area Candy Vendor Device Identifier Shelf Expiration Date Model / Serial / Lot Mesh 10 X 14 [id number] - [id number] Implanted:Qty : 1 on 08/16/2010 at OR [facility] N/A: Abdomen [employer] 04/17/2015 [id number] / / [id number] Port Power Mri W/8fr Cath - [id number] Implanted:Qty : 1 on 10/12/2019 by Vern Gonzalez MD at OR [facility] N/A: Subclavian CR BARD : PERIPHERAL VASCULAR 03/16/2021 [id number] / / [id number] documented as of this encounter Visit Diagnoses Diagnosis Stage 3a chronic kidney disease (HCC) documented in this encounter Advance Directives Latest [...] gokul occurred with: Not Discussed Care Teams Ui Software Engineer Relationship Specialty Start Date End Date Isha Escalante CRNP [address] [place] [address] PCP - General Nurse Practitioner 06/25/23 documented as of this encounter
--- OUTSIDE RECORDS SUMMARY | 2023-10-22 07:28 | External Medical Summary | Summary of Care ---
Author Name Unknown Organization [facility] Address [address] [place] [address] Phone [phone] Care Team Providers Care Specialty Person Name Role Phone Isha Escalante Primary Care Provider Reason for Visit * Reason Onset Date Comments Advice 10/13/2023 Encounter Details Date Type Department Care Team (Late st Contact Info) Description 10/13/2023 Telephone Nephrology, [address] [address] Services, Scheduling [address] [place] [address] Advice Allergies Active Allergy Reactions Criticality Noted [...] from 10/01/2019:Stage IIB(cT3, cN0, cM0, G3, ER-, OH-, HER2+) - Signed by Nikolas Daugherty MD on 10/01/2019 Difficult intubation 03/27/2015 Overview: Easy mask airway, 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 Thank you [employer] Scheduling Service documented in this encounter Plan of Treatment Upcoming Encounters Date Type Department Care Team (Latest Contact Info) Description 10/15/2023 1:30 PM EST Hospital Encounter ENDO OSSC, Endoscopy Room [facility] [address] [facility] [place] [phone] Kimmie Altamirano MD [address] [place] [address] 10/15/2023 1:30 PM EST - 10/15/2023 2:00 PM EST Surgery ENDO OSS, Endoscopy Room [facility] [address] [facility] [place] [phone] Kimmie Altamirano MD [address] [place] [address] COLONOSCOPY FLEXIBLE PROXIMAL DIAGNOSTIC 02/18/2024 2:00 PM EDT Office Visit Sera Godinez [address] [place] [address] [place] [address] Marylou Andino MD [address] [place] [address] 04/07/2024 2:45 PM EDT Office [facility] [place] [address] [facility] [place] [address] Nikolas Daugherty MD [address] [facility] [place] [address] Scheduled Procedures Name Priority Associated Diagnoses Date/Ti me COLONOSCOPY FLEXIBLE PROXIMAL DIAGNOSTIC Recall History of colon polyps 10/15/2023 1:30 PM EST Health Maintenance Due Date Last Done Comments DXA Scan 1956 Lipid Panel 1956 COVID-19 Vaccine (#1) 1956 Depression Screening 1968 CKD PHOS USE SMARTSET 41433 1974 Hepatitis C Screening 1974 DTaP,Tdap,and Td Vaccines (1 - Tdap) 1975 Zoster Vaccines (1 of 2) 2006 COLONOSCOPY-EVERY 5 YRS AGES 18-100 08/25/2020 08/25/2015 Pneumococcal Vaccine: 65+ Years (1 - PCV) 2021 Influenza Vaccine (FLU shot) (#1) 2023 GFR 03/29/2024 09/29/2023, 07/06/2023, 03/26/2023, Additional history exists CKD HGB USE SMARTSET 76046 06/13/202406/13, 06/13/2023, 03/26/2023, Additional history exists Albumin/Creatinine [...] this encounter Medical Devices Implanted Type Area Kitchen Stewardess Device Identifier Shelf Expiration Date Model / Serial / Lot Mesh 10 X 14 [id number] - [id number] Implanted:Qty : 1 on 08/16/2010 at OR [facility] [place] [place] N/A: Abdomen [employer] 04/17/2015 [id number] / / [id number] Port Power Mri W/8fr Cath - [id number] Implanted:Qty : 1 on 10/12/2019 by Vern Gonzalez MD at OR [facility] N/A: Subclavian CR BARD : PERIPHERAL VASCULAR 03/16/2021 [id number] / / [id number] documented as of this encounter Advance Directives [...] gokul occurred with: Not Discussed Care Teams Specialty Person Relationship Specialty Start Date End Date Isha Escalante CRNP [address] [place] [address] PCP - General Nurse Practitioner 06/25/23 documented as of this encounter
--- OUTSIDE RECORDS SUMMARY | 2023-10-22 07:28 | External Medical Summary | Summary of Care ---
Author Name Unknown Organization [facility] Address [address] [facility] [place] [address] Phone [phone] Care Team Providers Care Structural Steel Worker Apprentice Name Role Phone Isha Escalante Primary Care Provider Reason for Visit * Auth/Cert Specialty Diagnoses / Procedures Referred By Contethel t Referred To Contact Diagnoses History of colon polyps History of colon polyps [Z86.010] Procedures COLONOSCOPY, DIAGNOSTIC (RECTUM) COLONOSCOPY FLEXIBLE PROXIMAL DIAGNOSTIC Referral ID Status Reason Start Date Expiration Date Visits Re quested Visits Authorized [id number] Encounter Details Date Type Department Care Team (Latest Contact Info) Description 10/15/2023 12:41 PM EST - 10/15/2023 2:29 PM [facility] Hospital Encounter ENDO [facility], Endoscopy Room [facility] [address] [facility] [place] [id number] Kimmie Altamirano MD [address] [place] [address] [place] [id number] Colonoscopy Discharge Disposition: Home - Self Care Allergies Active Allergy Reactions Criticality Noted Date Comments Cephalosporins Hives 02/21/2009 Valproic Acid 11/28/2014 documented as of this encounter (statuses as of 10/16/2023) Medications Medication Sig Dispensed Refills Start Date End Date Status IBUPROFEN 600 MG PO TABSIndications:C arcinoma in situ of breast 1 tablet by mouth three times daily x 2 weeks. Do not exceed 4 tablets in 24 hours. 90 Tab 1 01/16/2011 Active Coenzyme Q10 (CO Q 10) 10 MG CAPS Take 3 Caps by mouth daily. 0 Active Vitamins-Lipotrop ics (LIPO-FLAVONOID PLUS) TABS Take 1 Tab by [...] Denosumab 60 MG/ML Subcutaneous Solution Prefilled Syringe (ProlBiolineRx) INJECT 60 MG UNDER THE SKIN ONCE EVERY 6 MONTHS 2 mL 1 08/07/2022 3 Additional Information Patient not taking.Reported on 06/25/2023 Torsemide 20 MG Oral Tablet (Demadex) Take 3 Tablets by mouth in the morning. 0 3 Discontinued (Refill) Carvedilol 3.125 MG Oral Tablet Take 1 Tablet by mouth 2 times a day with morning and evening meals. 0 3 Discontinued (Refill) hydrALAZINE HCl 50 MG Oral Tablet (Apresoline) Take 1 Tablet by mouth in the morning and 1 Tablet at noon and 1 Tablet before bedtime. 0 3 Discontinued (Refill) documented as of this encounter (statuses as of 10/16/2023) Active Problems Problem Noted Date Diagnosed Date Chronic kidney disease, stage 3a 06/30/2023 Overview: Per CKD protocol History of breast cancer 10/20/2020 Dehydration 10/26/2019 Orthostatic hypotension 10/26/2019 Chemotherapy induced diarrhea 10/26/2019 Malignant neoplasm of lower- outer quadrant of left breast of female, estrogen receptor negative 10/01/2019 Cancer Staging:Clinical stage from 10/01/2019:Stage IIB(cT3, cN0, cM0, G3, ER-, ND-, HER2+) - Signed by Nikolas Daugherty MD on 10/01/2019 Difficult intubation 03/27/2015 Overview: 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14 10/15/2023 1:04 PM EST documented in this encounter H&P Notes * Kimmie Altamirano MD - 10/15/2023 1:19 PM EST Endoscopy Pre-Procedure Assessment Name: Isha Garcia Date: 10/15/2023 Time: 1:19 PM Procedure(s): Colonoscopy; with Indication(s) of colon polyp surveillance Endoscopy Pre-Procedure Assessment: Prior to the procedure, the patient is identified. The patient's history, medications and allergieshave been reviewed. The patient is competent. The risks and benefits of the proposed procedure and the planned sedation have been discussed with the patient. All questions have been answered and informed consent for the procedure has been obtained. Prior to Admission medications Medication Sig Last Dose Discont. amLODIPine Besylate 10 MG Oral Tablet (Norvasc) Take 1 Tablet by mouth in the morning. Past Week Torsemide 20 MG Oral Tablet (Demadex) Take 1 Tablet by mouth in the morning. Past Week Carvedilol 3.125 MG Oral Tablet (Coreg) Take 1 Tablet by mouth 2 times a day with morning and evening meals. Past Week Vitamin B Complex Oral Capsule Take by mouth. Past Week Iron 325 (65 Fe) MG Oral Tablet Take by mouth. Past Week Vitamin D3 50 MCG (2000 UT) Oral Tablet Take 1 Tablet by mouth in the morning. Past Week Acetaminophen 325 MG Oral Tablet Chewable Take by mouth. Past Week Kelp 0.15 MG TABS Take by mouth. Past Week Coenzyme Q10 (CO Q 10) 10 MG CAPS Take 3 Caps by mouth daily. 10/14/2023 IBUPROFEN 600 MG PO TABS 1 tablet by mouth three times daily x 2 weeks. Do not exceed 4 tablets in 24 hours. Past Week Denosumab 60 MG/ML Subcutaneous Solution Prefilled Syringe (Prolia) INJECT 60 MG UNDER THE SKIN ONCE EVERY 6 MONTHS Patient not taking: Reported on 06/25/2023 Not Taking Vitamins-Lipotropics (LIPO-FLAVONOID PLUS) TABS Take 1 Tab by mouth daily. Patient not taking: Reported on 06/13/2023 Not Taking Review of patient's allergies indicates: Allergen Reactions Cephalexin [Cephalosporins] Hives Valproic Acid BP 146/71 | Pulse 75 | Temp 36.6 C (97.8 F) (Tympanic) | Resp 14 | Ht 1.676 m (5' 5.98") | Wt 104.3 kg (230 lb) | SpO2 100% | BMI 37.14 kg/m | BSA 2.2 m Physical Exam: Mental Status Examination: alert and oriented. Resp: normal ASA Grade: III - A patient with severe systemic disease. Abdomen: soft This patient has undergone a preprocedural evaluation. A determination has been made to proceed with the planned procedure under [facility] procedural guidelines and the [facility] Non-Emergent, Elective Medical Services and Treatment Recommendations (published on 02-22-20). The community and hospital prevalence of COVID-19 has been discussed as well as this patient's specific risks associated with SARS-CoV-19 infection. Based upon the clinical acuity and patient-specific care considerations, this procedure is deemed a Tier III - Procedures at little or no risk for clinical deterioration (example - cosmetic). After reviewing the risks and benefits of colonoscopy including infection, bleeding, perforation, missed lesions, splenic laceration, the patient is deemed in satisfactory condition to undergo the procedure. The anesthesia plan is to use general anesthesia. Kimmie Altamirano MD 10/15/2023 documented in this encounter Procedure Notes * Isha Escalante CRNP - 10/15/2023 1:18 PM ESTAssociated Order(s): COLONOSCOPY [facility] Patient Name: Isha Garcia Procedure Date: 10/15/2023 1:18 PM Date of : 1955 Admit Type: Outpatient Note Status: Finalized Date of : 1955 Admit Type: Outpatient Age: 68 Room: Endo 2 Gender: Female Note Status: Finalized Procedure: Colonoscopy Indications: High risk colon cancer surveillance: personal history of colon polyps (adenomas 2015) Providers: Kimmie Altamirano MD (Doctor), Junior Pearson RN, Lillian Aleman CRNA (Anesthesia Staff) Patient Profile: Last Colonoscopy: several years ago. Referring MD: Isha Escalante Medicines: See the Anesthesia note for documentation of the administered medications Complications: No immediate complications. Procedure: Pre-Anesthesia Assessment: - Patient identification and proposed procedure were verified prior to the procedure by the physician, the nurse and the anesthesiologist. The procedure was verified in the pre-procedure area. - Prior to the procedure, a History and Physical was performed, and patient medications, allergies and sensitivities were reviewed. The patient's tolerance of previous anesthesia was reviewed. - The risks and benefits of the procedure and the sedation options and risks were discussed with the patient. All questions were answered and informed consent was obtained. - The medication list for this patient has been reviewed prior to the procedure and has been determined that the patient may proceed with the planned study. Any medication changes made as a result of the findings of this procedure have been discussed with the patient and/or rental sales representative at the time of discharge from the department. - After I obtained informed consent, the scope was passed under direct vision. All instruments were visually inspected immediately before and after removal from the patient to ensure they are fully intact. Throughout the procedure, the patient's blood pressure, pulse, and oxygen saturations were monitored continuously. The [id number] Colonoscope ([id number]) was introduced through the anus and advanced to the terminal ileum. The colonoscopy was performed without difficulty. The patient tolerated the procedure well. The quality of the bowel preparation was adequate to identify polyps 6 mm and larger in size. Findings & Specimens: The examined terminal ileum appeared normal. The examined colon appeared normal. Scattered small-mouthed diverticula were found in the sigmoid colon. The exam was otherwise without abnormality on direct and retroflexion views. Impression: - The examined portion of the terminal ileum appeared normal. - The examined colon appeared normal. - Sigmoid diverticulosis. - The examination was otherwise normal on direct and retroflexion views. Recommendation: - Repeat colonoscopy in 5 years for surveillance. Kimmie Altamirano MD 10/15/2023 1:57:31 PM This report has been signed electronically. documented in this encounter Nursing Notes * Ginna Pisano RN - 10/15/2023 2:25 PM EST Patient is alert, pain free, passing flatus and tolerating po fluids prior to discharge. Patient has been visited by Dr. Altamirano. Patient has received and demonstrates understanding of discharge instructions. Patient is transported via w/c to private auto accompanied by endo staff. * Ginna Pisano RN - 10/15/2023 2:14 PM EST D/C instructions given to pt, verbalized understanding/ * Ginna Pisano RN - 10/15/2023 2:05 PM EST Pt sitting up tolerating PO fluids. Dr Altamirano in with pt discussing results of procedure. * Ginna Pisano RN - 10/15/2023 1:58 PM EST Received pt, awake, VSS, Cm shows NSR. Report given by Moshe HAWKINS. * Junior Pearson RN - 10/15/2023 1:56 PM EST See anesthesia record for medication administered during procedure. Junior Pearson RN Pre cleaning of scope at the bedside started by information tech. Mid abdominal pressure given per Dr. Altamirano to assist with scope advancement. Pt tolerated well * aMdalyn Melton RN - 10/15/2023 12:52 PM EST The following pt discharge instructions reviewed with pt prior to prodedure: No driving today. No alcohol today. No signing of legal documents. Rest as much as possible today and can return to normal activities tomorrow. No operating any heavy equipment today. Diet as tolerated. Pt verbalized understanding. documented in this encounter Plan of Treatment Upcoming Encounters Date Type Department Care Team (Late st Contact Info) Description 02/18/2024 2:00 PM EDT Office Visit Nephrology, [place] [address] [place] [address] Marylou Andino MD [address] [place] [id number] 04/07/2024 2:45 PM EDT Office Visit Hematology/Oncology [facility] [place] [address] [facility] [place] [address] Nikolas Daugherty MD [address] [facility] [place] [address] Health Maintenance Due Date Last Done Comments DXA Scan 1955 Lipid Panel 1955 COVID-19 Vaccine (#1) 1955 Depression Screening 1968 CKD PHOS USE SMARTSET 55934 1974 Hepatitis C Screening 1974 DTaP,Tdap,and Td Vaccines (1 - Tdap) 1975 Zoster Vaccines (1 of 2) 2006 Pneumococcal Vaccine: 65+ Years (1 - PCV) 2021 Influenza Vaccine (FLU shot) (#1) 2023 GFR 03/29/2024 10/15/2023, 09/17, 06/13/2023, Additional history exists CKD HGB USE SMARTSET 94423 06/13/202406/13, 06/13/2023, 03/26/2023, Additional history exists Albumin/Creatinine Ratio 06/25/2024 06/25/2023 Diabetes Screening 09/29/2026 10/15/2023, 1 11/29/2022, 06/13/2023, Additional history exists [...] this encounter Medical Devices Implanted Type Area Veterinary Technician Device Identifier Shelf Expiration Date Model / Serial / Lot Mesh 10 X 14 [id number] - [id number] Implanted:Qty : 1 on 08/16/2010 at [place] [facility] [place]/A: Abdomen [employer] 04/17/2015 [id number] / / [id number] Port Power Mri W/8fr Cath - [id number] Implanted:Qty : 1 on 10/12/2019 by Vern Gonzalez MD at OR [facility] N/A: Subclavian CR BARD : PERIPHERAL VASCULAR 03/16/2021 [id number] / / [id number] documented as of this encounter Procedures Procedure Name Priority Date/Time Associated Diagnosis Comments COLONOSCOPY 10/15/2023 1:18 PM EST documented in this encounter Results * COLONOSCOPY (10/15/2023 1:18 PM EST) 10/15/2023 1:18 PM EST Narrative Procedure Note Isha Escalante CRNP - 10/15/2023 1:18 PM EST [facility] Patient Name: Isha Garcia Procedure Date: 10/15/2023 1:18 PM Date of : 1955 Admit Type: Outpatient Note Status:Finalized Date of : 1955 Admit Type: Outpatient Age: 68 Room: Endo 2 Gender: Female Note Status: Finalized Procedure: Colonoscopy Indications: High risk colon cancer surveillance: personalhistory of colon polyps (adenomas 2015) Providers: Kimmie Altamirano MD (Doctor), Junior Pearson RN, ROSS Aldana (Anesthesia Staff) Patient Profile: Last Colonoscopy: several years ago. Referring MD: Isha Escalante Medicines: See the Anesthesia note for documentation of theadministered medications Complications: No immediate complications. Procedure: Pre-Anesthesia Assessment: - Patient identification and proposed procedurewere verified prior to the procedure by the physician, the nurse and theanesthesiologist. The procedure was verified in the pre-procedure area. - Prior to the procedure, a History and Physicalwas performed, and patient medications, allergies and sensitivities werereviewed. The patient's tolerance of previous anesthesia was reviewed. - The risks and benefits of the procedure and thesedation options and risks were discussed with the patient. All questions wereanswered and informed consent was obtained. - The medication list for this patient has beenreviewed prior to the procedure and has been determined that the patient may proceed with the plannedstudy. Any medication changes made as a result of the findings of this procedure have beendiscussed with the patient and/or rental sales representative [facility] - After I obtained informed consent, the scope waspassed under direct vision. All instruments were visually inspected immediatelybefore and after removal from the patient to ensure they are fully intact. Throughout the procedure, the patient's bloodpressure, pulse, and oxygen saturations were monitored continuously. The LookAcross-[id number] ([id number]) was introduced through the anus and advanced to the terminalileum. The colonoscopy was performed without difficulty. The patient tolerated theprocedure well. The quality of the bowel preparation was adequate to identify polyps 6mm and larger in size. Findings & Specimens: The examined terminal ileum appeared normal. The examined colon appeared normal. Scattered small-mouthed diverticula were found in the sigmoidcolon. The exam was otherwise without abnormality on direct and retroflexionviews. Impression: - The examined portion of the terminal ileumappeared normal. - The examined colon appeared normal. - Sigmoid diverticulosis. - The examination was otherwise normal on directand retroflexion views. Recommendation: - Repeat colonoscopy in 5 years for surveillance. Kimmie Altamirano MD 10/15/2023 1:57:31 PM This report has been signed electronically. Isha AMATONP GASTRO LOWER documented in this encounter Administered Medications Inactive Administered Medications - up to 3 most recent administrations Medication Order MAR Action Action Date Dose Rate Site Acetaminophen (Tylenol) tab 650 mg 650 mg, Oral, PRN Pain, Mild, Starting on Fri10/15/23 at 1410, Until Fri10/15/23 at 1556, For 1 dose, Maximum of 4 grams (4000 mg) per day., Post-op isolyte-S pH 7.4 infusion Intravenous, at 100 mL/hr, Plasma-LYTE 148, isolyte-S, and isolyte-S pH 7.4 are considered equivalent - including for MAR barcode scanning., CONTINUOUS, Starting on Fri10/15/23 at 1330, Until Fri10/15/23 at 1556, Pre-Op New Bag 10/15/2023 1:37 PM EST 100 mL/hr documented in this encounter Active and Recently Administered Medications Times are shown in EST. Continuous Medication Order 10/13/2023 10/14/2023 10/15/2023 isolyte-S pH 7.4 infusion Intravenous, at 100 mL/hr, Plasma-LYTE 148, isolyte-S, and isolyte-S pH 7.4 are considered equivalent - including for MAR barcode scanning., CONTINUOUS, Starting on Fri10/15/23 at 1330, Until Fri10/15/23 at 1556, Pre-Op 1337 (New Bag - Prov ider: Lillian Aleman CRNA)1355 (Anes Intra-Op Fluid - Provider: Moshe Ignacio CRNA) PRN Medication Order 10/13/2023 10/14/2023 10/15/2023 Acetaminophen (Tylenol) tab 650 mg 650 mg, Oral, PRN Pain, Mild, Starting on Fri10/15/23 at 1410, Until Fri10/15/23 at 1556, For 1 dose, Maximum of 4 grams (4000 mg) per day., Post-op documented in this encounter Advance Directives Latest [...] gokul occurred with: Not Discussed Care Teams Structural Steel Worker Apprentice Relationship Specialty Start Date End Date Isha Escalante CRNP [address] [place] [address] PCP - General Nurse Practitioner 06/25/23 documented as of this encounter
--- OUTSIDE RECORDS SUMMARY | 2023-10-22 07:28 | External Medical Summary | Summary of Care ---
Author Name Unknown Organization [facility] Address [address] [place] [address] Phone [phone] Care Team Providers Care Desk Operator Name Role Phone Isha Escalante Primary Care Provider Reason for Visit * Reason Onset Date Comments Advice 10/21/2023 Encounter Details Date Type Department Care Team (Late st Contact Info) Description 10/21/20[address] [facility] [address] [place] [address] [place] [address] Services, Scheduling [address] [place] [address] Advice Allergies Active Allergy Reactions Criticality Noted [...] from 10/01/2019:Stage IIB(cT3, cN0, cM0, G3, ER-, [place]-, HER2+) - Signed by Nikolas Daugherty MD on 10/01/2019 Difficult intubation 03/27/2015 Overview: 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 Live also states pt has some swelling or her right foot with pain. Please contact Live at [phone] to advise. Thank you! documented in this encounter Plan of Treatment Upcoming Encounters Date Type Department Care Team (Late st Contact Info) Description 02/18/2024 2:00 PM EDT Office Visit Nephrology, [address] [place] [address] Marylou Andino MD [address] [facility] [place] [address] 04/07/2024 2:45 PM EDT Office Visit Hematology/Oncology [facility] [address] [facility] [place] [address] Nikolas Daugherty MD [address] [facility] [place] [address] Health Maintenance Due Date Last Done Comments DXA Scan 1955 Lipid Panel 1955 COVID-19 Vaccine (#1) 1955 Depression Screening 1968 CKD PHOS USE SMARTSET 41530 1974 Hepatitis C Screening 1974 DTaP,Tdap,and Td Vaccines (1 - Tdap) 1975 Zoster Vaccines (1 of 2) 2006 Pneumococcal Vaccine: 65+ Years (1 - PCV) 2021 Influenza Vaccine (FLU shot) (#1) 2023 GFR 04/14/2024 10/15/2023, 09/17, 06/13/2023, Additional history exists CKD HGB USE SMARTSET 58453 06/13/202406/13, 06/13/2023, 03/26/2023, Additional history exists Albumin/Creatinine [...] this encounter Medical Devices Implanted Type Area Scratch Polisher Device Identifier Shelf Expiration Date Model / Serial / Lot Mesh 10 X 14 [id number] - [id number] Implanted:Qty : 1 on 08/16/2010 at OR [facility] [place] N/A: Abdomen [employer] 04/17/2015 [id number] / / [id number] Port Power Mri W/8fr Cath - [id number] Implanted:Qty : 1 on 10/12/2019 by Vern Gonzalez MD at OR [facility] N/A: Subclavian CR BARD : PERIPHERAL VASCULAR 03/16/2021 [id number] / / [id number] documented as of this encounter Advance Directives [...] gokul occurred with: Not Discussed Care Teams Desk Operator Relationship Specialty Start Date End Date Isha Escalante CRNP [address] [place] [address] PCP - General Nurse Practitioner 06/25/23 documented as of this encounter
--- OUTSIDE RECORDS SUMMARY | 2023-10-22 07:29 | External Medical Summary | Summary of Care ---
Author Name Unknown Organization [facility] Address [address] [facility] [place] [address] Phone [phone] Care Team Providers Care Service Desk Analyst Name Role Phone Isha Escalante Primary Care Provider Encounter Details Date Type Department Care Team (Late st Contact Info) Description 06/13/2023 Telephone OR [facility], Operating Room [facility] [address] [place] [phone] Kushal Haas MD [address] [employer] [place] [address] Allergies Active Allergy Reactions Criticality Noted Date Comments Cephalosporins Hives 02/21/2009 Valproic Acid 11/28/2014 documented as of this encounter (statuses as of 09/12/2023) Medications Medication Sig Dispensed Refills Start Date End Date Status IBUPROFEN 600 MG PO TABSIndications:Ca rcinoma in situ of breast 1 tablet by mouth three times daily x 2 weeks. Do not exceed 4 tablets in 24 hours. 90 Tab 1 01/16/2011 Active Additional Information Patient not taking.Reported on 06/25/2023 Coenzyme Q10 (CO Q 10) 10 MG CAPS Take 3 Caps by mouth daily. 0 Active Vitamins-Lipotropi cs (LIPO-FLAVONOID PLUS) TABS Take 1 Tab by [...] Oral Tablet Take by mouth. 0 Active Torsemide 20 MG Oral Tablet (Demadex) Take 3 Tablets by mouth in the morning. 0 06/27/2023 Discontinue d(Refill) Carvedilol 3.125 MG Oral Tablet Take 1 Tablet by mouth 2 times a day with morning and evening meals. 0 06/27/2023 Discontinue d(Refill) hydrALAZINE HCl 50 MG Oral Tablet (Apresoline) Take 1 Tablet by mouth in the morning and 1 Tablet at noon and 1 Tablet before bedtime. 0 06/27/2023 Discontinue d(Refill) documented as of this encounter (statuses as of 09/12/2023) Active Problems Problem Noted Date Diagnosed Date Chronic kidney disease, stage 3a 06/30/2023 Overview: Per CKD protocol History of breast cancer 10/20/2020 Dehydration 10/26/2019 Orthostatic hypotension 10/26/2019 Chemotherapy induced diarrhea 10/26/2019 Malignant neoplasm of lower- outer quadrant of left breast of female, estrogen receptor negative 10/01/2019 Cancer Staging:Clinical stage from 10/01/2019:Stage IIB(cT3, cN0, cM0, G3, ER-, [place]-, HER2+) - Signed by Nikolas Daugherty MD on 10/01/2019 Difficult intubation 03/27/2015 Overview: Easy mask airway, 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 Patient has documented difficult airway andas per Dr Mueller is OK to proceed here but will need seen by nephrology prior to procedure /spouse contacted and agreeable to plan of care documented in this encounter Plan of Treatment Upcoming Encounters Date Type Department Care Team (Latest Contact Info) Description 09/29/2023 11:20 AM EST Office Visit Nephrology, [address] [place] [address] Marylou Andino MD [address] [place] [address] [place] [address] 10/08/2023 2:45 PM EST Office Visit Hematology/Oncology [place] [address] [facility] [place] [address] Nikolas Daugherty MD [address] [facility] [place] [address] 10/15/2023 1:30 PM EST Hospital Encounter ENDO [facility], Endoscopy Room [facility] [address] [place] [phone] Kimmie Altamirano MD [address] [place] [address] 10/15/2023 1:30 PM EST - 10/15/2023 2:00 PM EST Surgery ENDO [facility], Endoscopy Room [facility] [address] [place] [phone] Kimmie Altamirano MD [address] [place] [address] COLONOSCOPY FLEXIBLE PROXIMAL DIAGNOSTIC Scheduled Procedures Name Priority Associated Diagnoses Date/Ti me COLONOSCOPY FLEXIBLE PROXIMAL DIAGNOSTIC Recall History of colon polyps 10/15/2023 1:30 PM EST Health Maintenance Due Date Last Done Comments DXA Scan 1955 Lipid Panel 1956 COVID-19 Vaccine (#1) 1956 Depression Screening 1968 Hepatitis C Screening 1974 DTaP,Tdap,and Td Vaccines (1 - Tdap) 1975 Zoster Vaccines (1 of 2) 2006 COLONOSCOPY-EVERY 5 YRS AGES 18-100 08/25/2020 08/25/2015 Pneumococcal Vaccine: 65+ Years (1 - PCV) 2021 Influenza Vaccine (FLU shot) (#1) 2023 GFR 12/14/2023 06/13/2023, 05, 09/25/2022, Additional history exists Albumin/Creatinine Ratio 06/25/2024 06/25/2023 [...] this encounter Medical Devices Implanted Type Area Gis Application Developer Device Identifier Shelf Expiration Date Model / Serial / Lot Mesh 10 X 14 [id number] - [id number] Implanted:Qty : 1 on 08/16/2010 [place] [facility] [place]: Abdomen [employer] 04/17/2015 [id number] / / [id number] Port Power Mri W/8fr Cath - [id number] Implanted:Qty : 1 on 10/12/2019 by Vern Gonzalez MD at OR [facility] N/A: Subclavian CR BARD : PERIPHERAL VASCULAR 03/16/2021 [id number] / / [id number] documented as of this encounter Advance Directives [...] gokul occurred with: Not Discussed Care Teams Service Desk Analyst Relationship Specialty Start Date End Date Isha Escalante CRNP [address] [place] [address] PCP - General Nurse Practitioner 06/25/23 documented as of this encounter
--- OUTSIDE RECORDS SUMMARY | 2023-10-22 07:29 | External Medical Summary ---
Author Name Unknown Address Unknown Organization [id number]:LABORATORY [facility] [place] - [address] [place] [address] Laboratory Report Ordering Provider Test Date Status TARIQ MICHAEL 06/13/2023 08:17:20 Final Observation Date Value Abnormality Reference (Units ) Status Ferritin 06/13/2023 08:17:20 210 Above high normal 13 -150 (ng/mL) Final Postmenopausal women have hi gher ferritin levels than pre-menopausal women. The above reference interval is based on pre-menopausal women. Performing Location LABORATORY C - [address] [place] [address]
--- OUTSIDE RECORDS SUMMARY | 2023-10-22 07:29 | External Medical Summary ---
Author Name Unknown Address Unknown Organization [id number]:[place] [address] [facility] [address] Laboratory Report Ordering Provider Test Date Status MCKINLEY AVERY 06/13/2023 08:17:20 Final Observation Date Value Abnormality Reference (Units ) Status BUN 06/13/2023 08:17:20 30 Above high normal 6-20 (mg/dL) Final Creatinine 06/13/2023 08:17:20 1.9 Above high normal 0.5-1.0 (mg/dL) Final Glomerular filtration rate/1.73 sq M.predicted [Volume Rate/Area] in Serum, Plasma or Blood by Creatinine-based formula (CKD-EPI) 06/13/2023 08:17:20 28 Below low normal >=60 (mL/min) Final eGFR is calculated based on the CKD-EPI 2020 equation SODIUM 06/13/2023 08:17:20 141 135-146 (m mol/L) Final Potassium 06/13/2023 08:17:20 4.1 3.5-5.1 (m mol/L) Final Cl 06/13/2023 08:17:20 99 98-107 (mm ol/L) Final CO2 06/13/2023 08:17:20 30 22-32 (mmo l/L) Final Anion gap 06/13/2023 08:17:20 12 7-15 (mmol /L) Final Glucose 06/13/2023 08:17:20 97 70-120 (mg /dL) Final Albumin 06/13/2023 08:17:20 4.4 3.8-5.0 (g /dL) Final AST (Aspartate aminotransferase) 06/13/2023 08:17:20 27 10-35 (U/L) Final Alk Phos 06/13/2023 08:17:20 68 35-130 (U/ L) Final Bilirubin, Total 06/13/2023 08:17:20 0.4 <=1 .2 (mg/dL) Final Calcium 06/13/2023 08:17:20 9.8 8.4-10.2 ( mg/dL) Final Protein 06/13/2023 08:17:20 7.2 6.0-8.3 (g /dL) Final ALT (Alanine aminotransferase) 06/13/2023 08:17:20 25 10-35 (U/L) Final Performing Location LAB[facility]ORY [facility] [place] [address] [facility] [address]
--- OUTSIDE RECORDS SUMMARY | 2023-10-22 07:29 | External Medical Summary | Summary of Care ---
Author Name Unknown Organization [facility] Address [address] [facility] [place] [address] Phone [phone] Care Team Providers Care Consumer Insights Intern Name Role Phone Laverne Hameed PA-C Primary Care Provider Reason for Visit * Reason Comments Outpatient Testing Encounter Details Date Type Department Care Team Description 06/13/2023 Laboratory Laboratory [place], [place] [address] [place] [phone] [place], Lab [place] [address] [place] [address] Normocytic anemia; ARF (acute renal failure) (HCC) Allergies Active Allergy Reactions Severity Noted Date Comments Cephalosporins Hives 02/21/2009 Valproic Acid 11/28/2014 documented as of this encounter (statuses as of 06/13/2023) Medications Medication Sig Dispensed Refills Start Date End Date Status IBUPROFEN 600 MG PO TABSIndications:Carcin marielena in situ of breast 1 tablet by [...] D3 50 MCG (1999) Oral Tablet Take by mouth 2,000 Units in the morning. 0 Active Denosumab 60 MG/ML Subcutaneous Solution Prefilled Syringe (Prolia) INJECT 60 MG UNDER THE SKIN ONCE EVERY 6 MONTHS 2 mL 1 08/07/2022 10/14/2023 Active Iron 325 (65 Fe) MG Oral Tablet Take by mouth. 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 Follow-up examination, following other s urgery 08/20/2010 Anemia 08/20/2010 BMI 35-39 ISOLATED (SEE ACTUAL BMI) 04/17 Overview: Per Obesity Protocol, #19 Carcinoma in situ of breast 02/21/2009 documented as of this encounter (statuses as of 06/13/2023) Immunizations No known immunizationsdocumented as of this encounter Social History Tobacco Use Types Packs/Day Years Used Date Smoking Tobacco: Former Smokeless Tobacco: Never Alcohol Use Standard Drinks/Week Comments No 0 (1 standard drink = 0.6 oz pur e alcohol) Sex Assigned at Date Recorded Not on file Job Start Date Occupation Industry Not on file Not on file Not on file documented as of this encounter Plan of Treatment Upcoming Encounters Date Type Specialty Care Team Description 06/17/2023 Hospital Encounter Endoscopy Kushal Haas MD [address] [place] [address] 06/17/2023 Surgery Endoscopy Kushal Haas MD [address] [place] [address] COLONOSCOPY FLEXIBLE PROXIMAL DIAGNOSTIC 06/25/2023 Office Visit Nephrology Marylou Andino MD [address] [place] [address] 10/08/2023 Office Visit Hematology Oncology Nikolas Daugherty MD [address] [place] [address] Pending Results Name Type Priority Associated Diagnoses Date /Time CBC WITH WBC DIFFERENTIAL Lab STAT Normocytic anemia 06/13/2023 8:17 AM EDT IRON SCREEN, INCLUDING TIBC Lab STAT Normocytic anemia 06/13/2023 8:17 AM EDT FERRITIN Lab STAT Normocytic anemia 06/13/2023 8:17 AM EDT COMPREHENSIVE METABOLIC PANEL Lab Routine ARF (acute renal failure) (HCC) 06/13/2023 8:17 AM EDT CBC Lab STAT Normocytic anemia 06/13/2023 8:17 AM EDT DIFFERENTIAL, AUTOMATED Lab STAT Normocytic anemia 06/13/2023 8:17 AM EDT Scheduled Procedures Name Priority Associated Diagnoses Date/Ti me COLONOSCOPY FLEXIBLE PROXIMAL DIAGNOSTIC Recall History of colon polyps 06/17/2023 1:00 PM EDT Health Maintenance Due Date Last Done Comments DXA Scan 1956 Lipid Panel 1956 COVID-19 Vaccine (#1) 1956 Depression Screening, Annual for Pts 12 and Over 1968 Hepatitis C Screening 1974 DTaP,Tdap,and Td Vaccines (1 - Tdap) 1975 Zoster Vaccines (1 of 2) 2006 COLONOSCOPY-EVERY 5 YRS AGES 18-100 08/25/2020 08/25/2015 Pneumococcal Vaccine: 65+ Years (1 - PCV) 2021 Influenza Vaccine (FLU shot) (#1) 2023 Diabetes Screening 03/26/2026 03/26/2023, 1 11/25/2021, 03/22/2022, Additional history exists GARDASIL-HPV IMMUNIZATION SERIES Aged Out No longer eligible based on patient's age to complete this topic Hepatitis B Aged Out No longer eligi ble based on patient's age to complete this topic MENINGOCOCCAL (MENACTRA/MENVEO) Aged Out No longer eligible based on patient's age to complete this topic documented as of this encounter Medical Devices Implanted Type Area Fruit Farmer Device Identifier Shelf Expiration Date Model / Serial / Lot Mesh 10 X 14 [id number] - [id number] Implanted:Qty : 1 on 08/16/2010 at OR [facility] N/A: Abdomen [employer] 04/17/2015 [id number] / / [id number] Port Power Mri W/8fr Cath - [id number] Implanted:Qty : 1 on 10/12/2019 by Vern Gonzalez MD at [facility] N/A: Subclavian CR BARD : PERIPHERAL VASCULAR 03/16/2021 [id number] / / [id number] documented as of this encounter Visit Diagnoses Diagnosis Normocytic anemia Anemia, unspecified ARF (acute renal failure) (HCC) Acute kidney failure, unspecified History of colon polyps Personal history of [...] gokul occurred with: Not Discussed Care Teams Consumer Insights Intern Relationship Specialty Start Date End Date Laverne Hameed PA-C [address] [place] [address] [place] [address] PCP - General Physician Credit Administration Specialist 01/23/23 documented as of this encounter
--- OUTSIDE RECORDS SUMMARY | 2023-10-22 07:29 | External Medical Summary ---
Author Name Unknown Address Unknown Organization K01:LABORATORY [facility] - [address] [place] [address] Laboratory Report Ordering Provider Test Date Status REGGIE SILVA 06/25/2023 12:58:11 Final Observation Date Value Abnormality Reference (Units ) Status Parathyrin.intact [Mass/volume] in Serum or Plasma 06/25/2023 12:58:11 69 Above high normal 15-65 (pg/mL) Final Performing Location LABORATORY [facility] - [address] [place] [address]
--- OUTSIDE RECORDS SUMMARY | 2023-10-22 07:29 | External Medical Summary | Summary of Care ---
Author Name Unknown Organization [facility] Address [address] [facility] [place] [address] Phone [phone] Care Team Providers Care Assistant Director Of Nursing Name Role Phone Laverne Hameed PA-C Primary Care Provider Reason for Visit * Reason Comments Outpatient Testing Encounter Details Date Type Department Care Team Description 06/25/[address], [place] [address] [place] [address] [place], [address] [facility] [place] [address] Stage 3a chronic kidney disease (HCC); HTN, goal below 140/90 Allergies Active Allergy Reactions Severity Noted Date Comments Cephalosporins Hives 02/21/2009 Valproic Acid 11/28/2014 documented as of this encounter (statuses as of 06/25/2023) Medications Medication Sig Dispensed Refills Start Date [...] Tablets by mouth in the morning. 0 Active Carvedilol 3.125 MG Oral Tablet Take 1 Tablet by mouth 2 times a day with morning and evening meals. 0 Active hydrALAZINE HCl 50 MG Oral Tablet (Apresoline) Take 1 Tablet by mouth in the morning and 1 Tablet at noon and 1 Tablet before bedtime. 0 Active Vitamin B Complex Oral Capsule Take by mouth. 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 via direct [...] as of this encounter (statuses as of 06/25/2023) Immunizations No known immunizationsdocumented as of this [...] Encounters Date Type Specialty Care Team Description 10/08/2023 Office Visit Hematology Oncology Nikolas Daugherty MD [address] [place] [address] 10/15/2023 Hospital Encounter Endoscopy Kimmie Altamirano MD [address] [place] [address] [place], [place] [phone] 10/15/2023 Surgery Endoscopy Kimmie Altamirano MD [address] [place] [place], [place] [phone] COLONOSCOPY FLEXIBLE PROXIMAL DIAGNOSTIC Pending Results Name Type Priority Associated Diagnoses Date /Time ALBUMIN / CREATININE RATIO, URINE Lab Routine Stage 3a chronic kidney disease (HCC) 06/25/2023 12:58 PM EDT URINALYSIS WITH MICROSCOPIC EXAM Lab Routine Stage 3a chronic kidney disease (HCC) 06/25/2023 12:58 PM EDT 25-HYDROXY VITAMIN D Lab Routine Stage 3a chronic kidney disease (HCC) HTN, goal below 140/90 06/25/2023 12:58 PM EDT PTH Lab Routine Stage 3a chronic kidney disease (HCC) HTN, goal below 140/90 06/25/2023 12:58 PM EDT Scheduled Procedures Name Priority Associated Diagnoses [...] Vaccine (FLU shot) (#1) 2023 Diabetes Screening 06/13/2026 06/13/2023, 0 03/26/2023, 09/25/2022, [...] this encounter Medical Devices Implanted Type Area Rework Machine Operator Device Identifier Shelf Expiration Date Model / Serial / Lot Mesh 10 X 14 [id number] - [id number] Implanted:Qty : 1 on 08/16/2010 [place] [facility] [place]A: Abdomen [employer] 04/17/2015 [id number] / / [id number] Port Power Mri W/8fr Cath - [id number] Implanted:Qty : 1 on 10/12/2019 by Vern Gonzalez MD at OR [facility] N/A: Subclavian CR BARD : PERIPHERAL VASCULAR 03/16/2021 [id number] / / [id number] documented as of this encounter Visit Diagnoses Diagnosis Stage 3a chronic kidney disease (HCC) HTN, goal below 140/90 Unspecified essential hypertension History of colon polyps Personal history of [...] gokul occurred with: Not Discussed Care Teams Assistant Director Of Nursing Relationship Specialty Start Date End Date Laverne Hameed PA-C [address] [place] [address] [place] [address] PCP - General Physician Director Of It Operations 01/23/23 documented as of this encounter
--- OUTSIDE RECORDS SUMMARY | 2023-10-22 07:29 | External Medical Summary | Summary of Care ---
Author Name Unknown Organization [facility] Address [address] [facility] [place] [address] Phone [phone] Care Team Providers Care Mortgage Clerk Name Role Phone Laverne Hameed PA-C Primary Care Provider Reason for Visit * Reason Onset Date Comments Pre Procedure Assessment 06/11/2023 Encounter Details Date Type Department Care Team Description 06/11/2023 Telephone ENDO [facility], Endoscopy [address] [address] Kushal Haas MD [address] [place] [address] Pre Procedure Assessment Allergies Active Allergy Reactions Severity Noted Date Comments Cephalosporins Hives 02/21/2009 Valproic Acid 11/28/2014 documented as of this encounter (statuses as of 06/11/2023) Medications Medication Sig Dispensed Refills Start Date [...] 50 MCG (2000 UT) Oral Tablet Take by mouth 2,000 Units in the morning. 0 Active Denosumab 60 MG/ML Subcutaneous Solution Prefilled Syringe (Prolia) INJECT 60 MG UNDER THE SKIN ONCE EVERY 6 MONTHS 2 mL 1 08/07/2022 10/14/2023 Active Iron 325 (65 Fe) MG Oral Tablet Take by mouth. 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 Pt seemed very confused on the phone. Stated that she cancelled the appt because she just "went in the box". Many flights of ideas with her recent breast cancer and her husbands whereabouts. 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 I attempted to explain what the colonoscopy was for and she stated that she was "too tired t o go any further." Patient requested that I call back to leave a message so that her could return the call another day. I called back and left a message as requested. documented in this encounter Plan of Treatment Upcoming Encounters Date Type Specialty Care Team Description 06/17/2023 Hospital Encounter Endoscopy Kushal Haas MD [address] [place] [address] 06/17/2023 Surgery Endoscopy Kushal Haas MD [address] [place] [address] COLONOSCOPY FLEXIBLE PROXIMAL DIAGNOSTIC 06/25/2023 Office Visit Nephrology Marylou Andino MD [address] [place] [address] [place] [address] 10/08/2023 Office Visit Hematology Oncology Nikolas Daugherty MD [address] [facility], [place] [phone] Scheduled Procedures Name Priority Associated Diagnoses Date/Ti [...] this encounter Medical Devices Implanted Type Area Assembler Fluorescent Lights Device Identifier Shelf Expiration Date Model / Serial / Lot Mesh 10 X 14 [id number] - [id number] Implanted:Qty : 1 on 08/16/[address] [facility] N/A: Abdomen [employer] 04/17/2015 [id number] / / [id number] Port Power Mri W/8fr Cath - [id number] Implanted:Qty : 1 on 10/12/2019 by Vern Gonzalez MD at OR [facility] N/A: Subclavian CR BARD : PERIPHERAL VASCULAR 03/16/2021 [id number] / / [id number] documented as of this encounter Advance Directives [...] gokul occurred with: Not Discussed Care Teams Mortgage Clerk Relationship Specialty Start Date End Date Laverne Hameed PA-C [address] [place] [address] [place] [address] PCP - General Physician Medical Technologist Hematology 01/23/23 documented as of this encounter
--- OUTSIDE RECORDS SUMMARY | 2023-10-22 07:29 | External Medical Summary ---
Author Name Unknown Address Unknown Organization K01:LABORATORY [facility] [place] - [address] [place] [address] Laboratory Report Ordering Provider Test Date Status REGGIE SILVA 06/25/2023 12:58:11 Final Normal: <30 mg/g creatinine< br/>High: 30-300 mg/g creatinine
Very High: >300 mg/g creatinine
Nephrotic: >2200 mg/g creatinine Observation Date Value Abnormality Reference (Units ) Status Albumin, Urine 06/25/2023 12:58:11 <1.20 (mg/dL) Final Creatinine, Urine 06/25/2023 12:58:11 42 (mg/dL) Final Albumin/Creatinine [Mass Ratio] in Urine 06/25/2023 12:58:11 <29 <30 (mg/g Creat) Final Performing Location LABORATORY [facility] [place] - [address] [place] [address]
--- OUTSIDE RECORDS SUMMARY | 2023-10-22 07:29 | External Medical Summary ---
Author Name Unknown Address Unknown Organization K01:LABORATORY [facility] [place] - [address] [facility] [address] [place] [address] Laboratory Report Ordering Provider Test Date Status TARIQ MICHAEL 06/13/2023 08:17:20 Final Observation Date Value Abnormality Reference (Units ) Status WBC, Total 06/13/2023 08:17:20 11.81 Above high normal 4.00-10.80 (K/uL) Final RBC 06/13/2023 08:17:20 4.04 3.85-5.15 (M/uL) Final Hemoglobin 06/13/2023 08:17:20 11.5 Below low normal 12.0-15.3 (g/dL) Final HCT 06/13/2023 08:17:20 37.6 36.0-45.2 (%) Final MCV 06/13/2023 08:17:20 93.1 81.5-97.5 (fL) Final MCH 06/13/2023 08:17:20 28.5 27.0-34.0 (pg) Final MCHC 06/13/2023 08:17:20 30.6 32.0-36.0 (g/dL) Final RDW 06/13/2023 08:17:20 15.0 11.5-15.5 (%) Final Platelets 06/13/2023 08:17:20 377 140-400 (K/uL) Final MPV 06/13/2023 08:17:20 10.4 6.6-11.1 (fL) Final Nucleated erythrocytes/100 leukocytes [Ratio] in Blood by Automated count 06/13/2023 08:17:20 0 <=0 (/100 WBCs) Final Performing Location LABORATORY C - [address] [place] [address]
--- OUTSIDE RECORDS SUMMARY | 2023-10-22 07:29 | External Medical Summary | Summary of Care ---
Author Name Unknown Organization [facility] Address [address] [place] [address] Phone [phone] Care Team Providers Care Cutter Grind Tool Technician Name Role Phone Isha Escalante Primary Care Provider Reason for Visit * Reason Onset Date Comments Medication Refill 06/27/2023 Encounter Details Date Type Department Care Team Description 06/27/2023 Refill Nephrology, [address] [address] Shira Paredes MD [address] [place] [address] Allergies Active Allergy Reactions Severity Noted Date Comments Cephalosporins Hives 02/21/2009 Valproic Acid 11/28/2014 documented as of this encounter (statuses as of 06/27/2023) Medications Medication Sig Dispensed Refills Start Date [...] 6 MONTHS 2 mL 1 08/07/2022 3 Active Additional Information Patient not taking.Reported on 06/25/2023 Iron 325 (65 Fe) MG Oral Tablet Take by mouth. 0 Active Vitamin B Complex Oral Capsule Take by mouth. 0 Active Torsemide 20 MG Oral Tablet (Demadex) Take 3 Tablets by mouth in the morning. 270 Tablet 3 06/27/2023 Active Carvedilol 3.125 MG Oral Tablet (Coreg) Take 1 Tablet by mouth 2 times a day with morning and evening meals. 180 Tablet 3 06/27/2023 Active hydrALAZINE HCl 50 MG Oral Tablet (Apresoline) Take 1 Tablet by mouth in the morning and 1 Tablet at noon and 1 Tablet before bedtime. 270 Tablet 3 06/27/2023 Active Torsemide 20 MG Oral Tablet (Demadex) Take 3 Tablets by mouth in the morning. 0 3 Discontinue d(Refill) Carvedilol 3.125 MG Oral Tablet Take 1 Tablet by mouth 2 times a day with morning and evening meals. 0 3 Discontinue d(Refill) hydrALAZINE HCl 50 MG Oral Tablet (Apresoline) Take 1 Tablet by mouth in the morning and 1 Tablet at noon and 1 Tablet before bedtime. 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 Authorizing Provider: SHIRA PAREDES Carvedilol 3.125 MG Oral Tablet (Coreg) 180 Ta*3 Sig: Take 1 Tablet by mouth 2 times a day with morning and evening meals. Authorizing Provider: SHIRA PAREDES hydrALAZINE HCl 50 MG Oral Tablet (Apresol*270 Ta*3 Sig: Take 1 Tablet by mouth in the morning and 1 Tablet at noon and 1 Tablet before bedtime. Authorizing Provider: SHIRA PAREDES * Telephone Encounter - Cordelia Gandhi LPN - 06/27/2023 12:04 PM EDT Prescription refill request received from pts . Pending as requested. Please authorize. * Telephone Encounter - JAMI Quiroga - 06/27/2023 11:00 AM EDT 06/27 patient's called requesting to get prescriptions sent to [facility]. Her would like a call back as soon as it is done. The prescriptions are Toresmide , Carvediol,and hydralazine that needs sent to mail [facility]. They would like a 90 day supply of each please.Please call him back at [phone]. documented in this encounter Plan of Treatment Upcoming Encounters Date Type Specialty Care Team Description 07/09/2023 Imaging Radiology 09/29/2023 Office Visit Nephrology Shira Paredes MD [address] [place] [address] 10/08/2023 Office Visit Hematology Oncology Nikolas Daugherty MD [address] [place] [address] 10/15/2023 Hospital Encounter Endoscopy Kimmie Altamirano MD [address] [place] [address] [place] [address] 10/15/2023 Surgery Endoscopy Kimmie Altamirano MD [address] [place] [address] [place] [address] COLONOSCOPY FLEXIBLE PROXIMAL DIAGNOSTIC Scheduled Procedures [...] this encounter Medical Devices Implanted Type Area Tractor Trailer Technician Device Identifier Shelf Expiration Date Model / Serial / Lot Mesh 10 X 14 [id number] - [id number] Implanted:Qty : 1 on 08/16/2010 at OR [facility] [place] N/A: Abdomen [employer] 04/17/2015 [id number] / / [id number] Port Power Mri W/8fr Cath - [id number] Implanted:Qty : 1 on 10/12/2019 by Vern Gonzalez MD at OR [facility] N/A: Subclavian CR BARD : PERIPHERAL VASCULAR 03/16/2021 [id number] / / [id number] documented as of this encounter Advance Directives [...] gokul occurred with: Not Discussed Care Teams Cutter Grind Tool Technician Relationship Specialty Start Date End Date Isha Escalante CRNP [address] [place] [address] PCP - General Nurse Practitioner 06/25/23 documented as of this encounter
--- OUTSIDE RECORDS SUMMARY | 2023-10-22 07:29 | External Medical Summary ---
Author Name Unknown Address Unknown Organization K01:[facility] [place] [address] [place] [address] Laboratory Report Ordering Provider Test Date Status CLAUDIAKELLYREGGIE 06/25/2023 12:58:11 Final Deficient: <20 ng/mL
Ins ufficient: 20-29 ng/mL
Recommended/Optimum:30-50 ng/mL

Vitamin D intoxication is rare. If suspicious of Vitamin D toxicity, evaluation of serum Calcium and PTH is recommended. Observation Date Value Abnormality Reference (Units ) Status 25-OH Vitamin D total 06/25/2023 12:58:11 62 >19 (ng/mL) Final Performing Location [facility] [place] [address] [place] [address]
--- OUTSIDE RECORDS SUMMARY | 2023-10-22 07:29 | External Medical Summary | Summary of Care ---
Author Name Unknown Organization [facility] Address [address] [place] [address] Phone [phone] Care Team Providers Care Immigration Manager Name Role Phone Laverne Hameed PA-C Primary Care Provider Reason for Visit * Reason Onset Date Comments Advice 06/23/2023 Encounter Details Date Type Department Care Team Description 06/23/2023 Telephone Nephrology, [address] [address] Marylou Andino MD [address] [place] [address] Advice Allergies Active Allergy Reactions Severity Noted Date Comments Cephalosporins Hives 02/21/2009 Valproic Acid 11/28/2014 documented as of this encounter (statuses as of 06/23/2023) Medications Medication Sig Dispensed Refills Start Date [...] mouth. 0 Active Vitamin D3 50 MCG (1999 UT) Oral Tablet Take 1 Tablet by [...] and 1 Tablet before bedtime. 0 Active documented as of this encounter (statuses as of 06/23/2023) Active Problems Problem Noted Date History of breast cancer 10/20/2020 Dehydration 10/26/2019 Orthostatic hypotension 10/26/2019 Chemotherapy induced diarrhea 10/26/2019 Malignant neoplasm of lower- outer quadrant of left breast of female, estrogen receptor negative 10/01/2019 Cancer Staging:Clinical stage from 10/01/2019:Stage IIB(cT3, cN0, cM0, G3, ER-, [place]-, HER2+) - Signed by Nikolas Daugherty MD on 10/01/2019 Difficult intubation 03/27/2015 Overview: Easy mask airway, DIE CUT OPERATOR unable to visualize vocal cords via [...] as of this encounter (statuses as of 06/23/2023) Immunizations No known immunizationsdocumented as of this [...] Telephone Encounter - Cordelia Gandhi LPN - 06/23/2023 11:49 AM EDT Call to pt. Spoke to . already spoke to Dr Andino. Confirmed appt for Friday in [place]. * Telephone Encounter - JAMI Cordova - 06/23/2023 11:12 AM EDT Live called on 06/23/23 at 11:13 AM. Patient is not taking her meds. He wants to speak withu. He is aware that she is scheduled to be seen 06/25/23 but wants to talk with somebodybefore that appointment. Best number to call is [phone]. Nobody available to warm transfer thecall. documented in this encounter Plan of Treatment Upcoming Encounters Date Type Specialty Care Team Description 06/25/2023 Office Visit Nephrology Marylou Andino MD [address] [place] [address] 10/08/2023 Office Visit Hematology Oncology Nikolas Daugherty MD [address] [place] [address] 10/15/2023 Hospital Encounter Endoscopy Kimmie Altamirano MD [address] [facility] [address] [place] [address] 10/15/2023 Surgery Endoscopy Kimmie Altamirano MD [address] [place] [address] [place] [address] COLONOSCOPY FLEXIBLE PROXIMAL DIAGNOSTIC Scheduled Procedures [...] this encounter Medical Devices Implanted Type Area Station Examiner Device Identifier Shelf Expiration Date Model / Serial / Lot Mesh 10 X 14 [id number] - [id number] Implanted:Qty : 1 on 08/16/2010 at OR [facility] [place] N/A: Abdomen [employer] 04/17/2015 [id number] / / [id number] Port Power Mri W/8fr Cath - [id number] Implanted:Qty : 1 on 10/12/2019 by Vern Gonzalez MD at OR [facility] N/A: Subclavian CR BARD : PERIPHERAL VASCULAR 03/16/2021 [id number] / / [id number] documented as of this encounter Advance Directives [...] gokul occurred with: Not Discussed Care Teams Immigration Manager Relationship Specialty Start Date End Date Laverne Hameed PA-C [address] [place] [address] [place] [address] PCP - General Physician Manager Learning 01/23/23 documented as of this encounter
--- OUTSIDE RECORDS SUMMARY | 2023-10-22 07:29 | External Medical Summary | Summary of Care ---
Author Name Unknown Organization [facility] Address [address] [facility] [place] [address] Phone [phone] Care Team Providers Care Licensed Practical Nurse Clinic Nurse Name Role Phone Isha Escalante Primary Care Provider Reason for Visit * Reason Onset Date Comments Advice 06/25/2023 Encounter Details Date Type Department Care Team Description 06/25/2023 Telephone [address] [place] [address] [place] [address] Marylou Andino MD [address] [facility] [place] [address] Advice Allergies Active Allergy Reactions Severity [...] Difficult intubation 03/27/2015 Overview: Easy mask airway, 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 Transferred to Nephrology. Thank you, Emma Tee Litigation Assistant [facility]) 06/25/2023,3:19 PM documented in this encounter Plan of Treatment Upcoming Encounters Date Type Specialty Care Team Description 10/08/2023 Office Visit Hematology Oncology Nikolas Daugherty MD [address] [place] [address], [place] [address] 10/15/2023 Hospital Encounter Endoscopy Kimmie Altamirano MD [address] [place] [address] [place] [address] 10/15/2023 Surgery Endoscopy Kimmie Altamirano MD [address] [place] [address] [place] [id number] COLONOSCOPY FLEXIBLE PROXIMAL DIAGNOSTIC Scheduled Procedures Name [...] this encounter Medical Devices Implanted Type Area Repairer Recreational Vehicle Device Identifier Shelf Expiration Date Model / Serial / Lot Mesh 10 X 14 [id number] - [id number] Implanted:Qty : 1 [place] 08[place] [facility] [place]: Abdomen [employer] 04/17/2015 [id number] / / [id number] Port Power Mri W/8fr Cath - [id number] Implanted:Qty : 1 on 10/12/2019 by Vern Gonzalez MD at OR [facility] N/A: Subclavian CR BARD : PERIPHERAL VASCULAR 03/16/2021 [id number] / / [id number] documented as of this encounter Advance Directives [...] gokul occurred with: Not Discussed Care Teams Licensed Practical Nurse Clinic Nurse Relationship Specialty Start Date End Date Isha Escalante CRNP [address] [place] [address] PCP - General Nurse Practitioner 06/25/23 documented as of this encounter
--- OUTSIDE RECORDS SUMMARY | 2023-10-22 07:29 | External Medical Summary | Summary of Care ---
Author Name Unknown Organization [facility] Address [address] [place] [address] Phone [phone] Care Team Providers Care Transmission Repairer Name Role Phone Laverne Hameed PA-C Primary Care Provider Reason for Visit * Reason Onset Date Comments Medical Records Request 05/28/2023 Encounter Details Date Type Department Care Team Description 05/28/2023 Telephone Nephrology, [address] [address] Marylou Andino MD [address] [place] [address] Medical Records Request Allergies Active Allergy Reactions Severity Noted Date Comments Cephalosporins Hives 02/21/2009 Valproic Acid 11/28/2014 documented as of this encounter (statuses as of 06/10/2023) Medications Medication Sig Dispensed Refills Start Date [...] 0.15 MG TABS Take by mouth. 0 Ac tive Acetaminophen 325 MG Oral Tablet Chewable Take by mouth. 0 Active Vitamin D3 50 MCG (1999 UT) Oral Tablet Take by mouth 2,000 Units in the morning. 0 Active Denosumab 60 MG/ML Subcutaneous Solution Prefilled Syringe (Prolia) INJECT 60 MG UNDER THE SKIN ONCE EVERY 6 MONTHS 2 mL 1 08/07/2022 10/14/2023 Active Iron 325 (65 Fe) MG Oral Tablet Take by mouth. 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 Pt has H/F appt w/ Dr Andino on 06-25-23 in [place]. Records sent for scanning and placed on Dr nix for review. documented in this encounter Plan of Treatment Upcoming Encounters Date Type Specialty Care Team Description 06/17/2023 Hospital Encounter Endoscopy Kushal Haas MD [address] [place] [address] 06/17/2023 Surgery Endoscopy Kushal Haas MD [address] [place] [address] COLONOSCOPY FLEXIBLE PROXIMAL DIAGNOSTIC 06/25/2023 Office Visit Nephrology Marylou Andino MD [address] [place] [address] 10/08/2023 Office Visit Hematology Oncology Nikolas Daugherty MD [address] [place] [address] Scheduled Procedures Name Priority Associated Diagnoses Date/Ti [...] this encounter Medical Devices Implanted Type Area Programmer Engineering And Scientific Device Identifier Shelf Expiration Date Model / Serial / Lot Mesh 10 X 14 [id number] - [id number] Implanted:Qty : 1 on 08/16/[address] [facility] [place] N/A: Abdomen [employer] 04/17/2015 [id number] / / [id number] Port Power Mri W/8fr Cath - [id number] Implanted:Qty : 1 on 10/12/2019 by Vern Gonzalez MD at OR [facility] N/A: Subclavian CR BARD : PERIPHERAL VASCULAR 03/16/2021 [id number] / / [id number] documented as of this encounter Advance Directives [...] gokul occurred with: Not Discussed Care Teams Transmission Repairer Relationship Specialty Start Date End Date Laverne Hameed PA-C [address] [facility] [address] [place] [address] PCP - General Physician Building Consultant 01/23/23 documented as of this encounter
--- OUTSIDE RECORDS SUMMARY | 2023-10-22 07:29 | External Medical Summary | Summary of Care ---
Author Name Unknown Organization [facility] Address [address] [place] [address] Phone [phone] Care Team Providers Care Residential Builder Name Role Phone Isha Escalante Primary Care Provider Reason for Visit * Reason Onset Date Comments Medication Refill 06/27/2023 Encounter Details Date Type Department Care Team Description 06/27/2023 Refill Nephrology, [address] [address] Shira Paredes MD [address] [place] [address] Allergies Active Allergy Reactions Severity Noted [...] from 10/01/2019:Stage IIB(cT3, cN0, cM0, G3, ER-, [place]-, HER2+) - Signed by Nikolas Daugherty MD on 10/01/2019 Difficult intubation 03/27/2015 Overview: Easy mask airway, 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 Her would like a call back as soon as it is done. The prescriptions are Toresmide , Carvediol,and hydralazine that needs sent to mail [facility]. They would like a 90 day supply of each please.Please call him back at [phone]. documented in this encounter Plan of Treatment Upcoming Encounters Date Type Specialty Care Team Description 07/09/2023 Imaging Radiology 09/29/2023 Office Visit Nephrology Shira Paredes MD [address] [place] [address] 10/08/2023 Office Visit Hematology Oncology Nikolas Daugherty MD [address] [place] [address] 10/15/2023 Hospital Encounter Endoscopy Kimmie Altamirano MD [...] this encounter Medical Devices Implanted Type Area Pro Shop Attendant Device Identifier Shelf Expiration Date Model / Serial / Lot Mesh 10 X 14 [id number] - [id number] Implanted:Qty : 1 on 08/16/2010 at OR [facility] [place] N/A: Abdomen [employer] 04/17/2015 [id number] / / [id number] Port Power Mri W/8fr Cath - [id number] Implanted:Qty : 1 on 10/12/2019 by Vern Gonzalez MD at OR [facility] N/A: Subclavian CR BARD : PERIPHERAL VASCULAR 03/16/2021 [id number] / / [id number] documented as of this encounter Advance Directives [...] gokul occurred with: Not Discussed Care Teams Residential Builder Relationship Specialty Start Date End Date Isha Escalante CRNP [address] [place] [address] PCP - General Nurse Practitioner 06/25/23 documented as of this encounter
--- OUTSIDE RECORDS SUMMARY | 2023-10-22 07:29 | External Medical Summary ---
Author Name Unknown Address Unknown Organization K01:[facility] [place] [address] [place] [address] Laboratory Report Ordering Provider Test Date Status TARIQ MICHAEL 06/13/2023 08:17:20 Final Observation Date Value Abnormality Reference (Units ) Status Iron 06/13/2023 08:17:20 50 33-151 (ug /dL) Final Iron-binding capacity 06/13/2023 08:17:20 314 250-425 (ug/dL) Final Transferrin Sat % 06/13/2023 08:17:20 16 15 -55 (%) Final Performing Location [facility] [place] [address] [place] [address]
--- OUTSIDE RECORDS SUMMARY | 2023-10-22 07:29 | External Medical Summary ---
Author Name Unknown Address Unknown Organization K01[place] [place] [address] [facility] [address] Laboratory Report Ordering Provider Test Date Status REGGIE SILVA 06/25/2023 12:58:11 Final Observation Date Value Abnormality Reference (Units ) Status Color of Urine by Auto 06/25/2023 12:58:11 Yellow Colorless, Light Yellow, Yellow, Dark Yellow Final Clarity, Urine 06/25/2023 12:58:11 Clear Clear Final Glucose [Mass/volume] in Urine by Automated test strip 06/25/2023 12:58:11 Negative Negative (mg/dL) Final Bilirubin.total [Presence] in Urine by Automated test strip 06/25/2023 12:58:11 Negative Negative Final Ketones [Mass/volume] in Urine by Automated test strip 06/25/2023 12:58:11 Negative Negative (mg/dL) Final Specific gravity, Urine 06/25/2023 12:58:11 1.009 1.003-1.030 Final Hemoglobin [Presence] in Urine by Automated test strip 06/25/2023 12:58:11 Negative Negative Final pH, Urine 06/25/2023 12:58:11 7.0 5.0-7.5 (Units) Final Protein [Mass/volume] in Urine by Automated test strip 06/25/2023 12:58:11 Negative Negative (mg/dL) Final Urobilinogen [Mass/volume] in Urine by Automated test strip 06/25/2023 12:58:11 Normal Normal (mg/dL) Final Nitrite [Presence] in Urine by Automated test strip 06/25/2023 12:58:11 Negative Negative Final Leukocyte esterase [Presence] in Urine by Automated test strip 06/25/2023 12:58:11 Negative Negative Final RBC, Urine 06/25/2023 12:58:11 0-2 0-2 (/HPF) Final WBC, Urine 06/25/2023 12:58:11 0-2 0-2 (/HPF) Final Bacteria [#/area] in Urine sediment by Microscopy high power field 06/25/2023 12:58:11 0-25 0-25 (/HPF) Final Hyaline casts, Urine 06/25/2023 12:58:11 1-4 Abnormal None (/LPF) Final Performing Location [facility] [place] [facility] [address] [facility] [address]
--- OUTSIDE RECORDS SUMMARY | 2023-10-22 07:29 | External Medical Summary | Summary of Care ---
Author Name Unknown Organization [facility] Address [address] [facility] [place] [address] Phone [phone] Care Team Providers Care Psychiatric Security Nurse Name Role Phone Isha Escalante Primary Care Provider Reason for Visit * Reason Comments Chemotherapy Perjeta/Herceptin Encounter Details Date Type Department Care Team Description 05/12/2020 Hem/Onc Treatment Hematology/Oncology Treatment, [place] [address] [place] [address] [place], [address] Hem Onc Scen[facility] [address] [place] [address] Malignant neoplasm of lower-outer quadrant of left breast of female, estrogen receptor negative (HCC)* Allergies Active Allergy Reactions Severity Noted Date Comments Cephalosporins Hives 02/21/2009 Valproic Acid 11/28/2014 documented as of this encounter (statuses as of 08/01/2023) Medications Medication Sig Dispensed Refills Start Date [...] TABS Take by mouth. 0 Act marion hydroCHLOROthiazi de (HYDRODIURIL) 12.5 MG Tablet 0 09/08/2019 06/20/2020 Discontinu ed (Medication List Clean Up) ondansetron (ZOFRAN) 8 MG TabletIndications :Malignant neoplasm of lower-outer quadrant of left breast of female, estrogen receptor negative (HCC),History of ductal carcinoma in situ (DCIS) of breast Take 1 Tab by mouth every 8 hours as needed for Nausea. 30 Tab 3 10/01/2019 02/16/2021 Discontinued (Medication List Clean Up) prochlorperazine (COMPAZINE) 10 MG TabletIndications :Malignant neoplasm of lower-outer quadrant of left breast of female, estrogen receptor negative (HCC),History of ductal carcinoma in situ (DCIS) of breast Take 1 Tab by mouth every 6 hours as needed for Nausea. 60 Tab 2 10/01/2019 02/16/2021 Discontinued (Medication List Clean Up) dexamethasone (DECADRON) 4 MG TabletIndications :Malignant neoplasm of lower-outer quadrant of left breast of female, estrogen receptor negative (HCC),History of ductal carcinoma in situ (DCIS) of breast Take 1 tablets twice a day, starting on the previous day of the treatment for total 3 days and repeat with each chemo cycle 36 Tab 0 10/01/2019 05/12/2020 Discontinued (End of Procedure) PERtuzumab (PERJETA) 420 MG/14ML SOLNIndications:M alignant neoplasm of lower-outer quadrant of left breast of female, estrogen receptor negative (HCC) Administer 420mg IV every 3 weeks 1 Vial 11 11/23/2019 09/04/2020 Discontinued (Refill) trastuzumab (HERCEPTIN) 150 MG SOLRIndications:M alignant neoplasm of lower-outer quadrant of left breast of female, estrogen receptor negative (HCC) Administer 6mg/kg IV every 3 weeks 689 mg 11 11/23/2019 09/04/2020 Discontinued (Refill) lidocaine-priloca ine (EMLA) 2.5-2.5 % creamIndications: Malignant neoplasm of lower-outer quadrant of left breast of female, estrogen receptor negative (HCC) APPLY TO SKIN OVER MEDIPORT & COVER 1HR PRIOR TO ACCESSING. 30 g 2 11/30/2019 03/22/2022 Discontinued (Medication List Clean Up) diphenoxylate-atr opine 2.5-0.025 mg per tab (LOMOTIL) 2.5-0.025 MG TabletIndications :Malignant neoplasm of lower-outer quadrant of left breast of female, estrogen receptor negative (HCC),Chemotherap y induced diarrhea Take 1 Tab by mouth 4 times a day as needed for Diarrhea. 60 Tab 0 12/28/2019 02/16/2021 Discontinued (Medication List Clean Up) documented as of this encounter (statuses as of 08/01/2023) Active Problems Problem Noted Date Chronic kidney disease, stage 3a 023 Overview: Per CKD protocol History of breast cancer 10/20/2020 Dehydration 10/26/2019 Orthostatic hypotension 10/26/2019 Chemotherapy induced diarrhea 10/26/2019 Malignant neoplasm of lower- outer quadrant of left breast of female, estrogen receptor negative 10/01/2019 Cancer Staging:Clinical stage from 10/01/2019:Stage IIB(cT3, cN0, cM0, G3, ER-, RI-, HER2+) - Signed by Nikolas Daugherty MD on 10/01/2019 Difficult intubation 03/27/2015 Overview: Easy mask airway, [employer] unable to visualize vocal cords via direct [...] as of this encounter (statuses as of 08/01/2023) Immunizations No known immunizationsdocumented as of this encounter Social History Tobacco Use Types Packs/Day Years Used Date Smoking Tobacco: Former Smokeless Tobacco: Never Alcohol Use Standard Drinks/Week Comments No 0 (1 standard drink = 0.6 oz pur e alcohol) Sex Assigned at Date Recorded Not on file Job Start Date Occupation Industry Not on file Not on file Not on file COVID-19 Exposure Response Date Recorded In the last month, have you been in contact with someone who was confirmed or suspected to have Coronavirus / COVID-19? Unable to assess 07/25/2020 3:00 PM EDT documented as of this encounter Last Filed Vital Signs Vital Sign Reading Time Taken Comments Blood Pressure 162/98 05/12/2020 9:29 AM EDT Pulse 78 05/12/2020 9:29 AM EDT Temperature 36.3 C (97.3 F) 05/12/2020 9:29 AM ED T Respiratory Rate 16 05/12/2020 9:29 AM EDT Oxygen Saturation - - Inhaled Oxygen Concentration - - Weight 104.3 kg (229 lb 15 oz) 05/12/2020 9:29 A M EDT Height - - Body Mass Index 37.11 02/09/2020 10:11 AM EDT documented in this encounter Progress Notes * Wilma Bianchi RN - 05/12/2020 11:43 AM EDT Patient left IVC by ambulating. Unaccompanied. Voiced no complaints. Wilma Bianchi RN 05/12/2020 11:43 AM * Wilma Bianchi RN - 05/12/2020 10:06 AM EDT Chemo agents Perjeta and Herceptin Appetite 3 meals daily Nausea/Vomiting denies Diarrhea after last infusion (provider aware) Constipation denies Mucositis denies Fatigue denies Bleeding denies Infection denies Rash denies Numbness tingling denies Pain denies Radiation denies ABN Labs Creatinine 1.3, GFR 45.4, WBC 11.04, HGB 9.3, HCT 30.1, ANC 8.71 provider aware Alt in Tx: None Return in 3 weeks Wilma Bianchi RN 05/12/2020 10:09 AM * Wilma Bianchi RN - 05/12/2020 10:06 AM EDT Functional status at today's visit: Fully active, able to carry on all pre-disease performance without restriction The drug name, dose, infusion volume, rate and route of administration, expiration date and time, appearance and physical integrity of the drug and rate set on the pump were verified by me and secondsign-in RN. Patient was assessed for symptoms or adverse side effects during treatment. Wilma Bianchi RN 05/12/2020 10:06 AM * Wilma Bianchi RN - 05/12/2020 10:03 AM EDT atient in IVC for Perjeta and Herceptin infusions. Chair 3 with a face covering on. Patient states she had diarrhea after her last treatment, Dr. Daugherty at appointment today. Labs reviewed with provider, continue with treatment as ordered. Patient tolerates treatment well today. Goals: Patient will remain free from infection. Possible barriers to meeting goals: IV therapy. Stability of the patient: Moderately stable - low risk of patient condition declining or worsening Summary regarding today's goals: Met: No S7S of infection noted. Wilma Bianchi RN 05/12/2020 11:06 AM documented in this encounter Plan of Treatment Upcoming Encounters Date Type Specialty Care Team Description 09/29/2023 Office Visit Nephrology Marylou Andino MD [address] [place] [address] 10/08/2023 Office Visit Hematology Oncology Nikolas Daugherty MD [address] [facility] [address] 10/15/2023 Hospital Encounter Endoscopy Kimmie Altamirano MD [address] [place] [address] [place] [address] 10/15/2023 Surgery Endoscopy Kimmie Altamirano MD [address] [place] [address] COLONOSCOPY FLEXIBLE PROXIMAL DIAGNOSTIC Scheduled Procedures [...] 12/14/2023 06/13/2023, 03/17, 09/25/2022, Additional history exists Albumin/Creatinine Ratio 06/25/2024 [...] this encounter Medical Devices Implanted Type Area Curtain Cutter Device Identifier Shelf Expiration Date Model / Serial / Lot Mesh 10 X 14 [id number] - [id number] Implanted:Qty : 1 on 08/16/2010 at [place] [facility] [place] [facility] [place]/A: Abdomen [employer] 04/17/2015 [id number] / / [id number] Port Power Mri W/8fr Cath - [id number] Implanted:Qty : 1 on 10/12/2019 by Vern Gonzalez MD at OR [facility] N/A: Subclavian CR BARD : PERIPHERAL VASCULAR 03/16/2021 [id number] / / [id number] documented as of this encounter Visit Diagnoses Diagnosis Malignant neoplasm of lower-outer quadrant of left breast of female, estrogen receptor negative (HCC)- Primary History of colon polyps Personal history of colonic polyps documented in this encounter Administered Medications Inactive Administered Medications - up to 3 most recent administrations Medication Order MAR Action Action Date Dose Rate Site acetaminophen (TYLENOL) tab 650 mg 650 mg, Oral, ONCE, On Fri05/12/20 at 1100, For 1 dose, Maximum of 4 grams (4000 mg) per day. Given 05/12/2020 9:53 AM EDT 650 mg diphenhydrAMINE (BENADRYL) cap 50 mg 50 mg, Oral, ONCE, On Fri05/12/20 at 1100, For 1 dose Given 05/12/2020 9:53 AM EDT 50 mg hEParin 100 UNIT/ML Lock Flush inj 500 Units 500 Units (5 mL), IV Lock, PRN Other, IV Flush, Starting on Fri05/12/20 at 0948, Until Fri05/12/20 at 1543, For 24 hours, Do not flush if lock, PICC, or central line not in place; IV infusing or unable to flush. Given 05/12/2020 11:36 AM EDT 500 Units NSS infusion 500 mL, Intravenous, at 50 mL/hr, CONTINUOUS, Starting on Fri05/12/20 at 1100, Until Fri05/12/20 at 1543 Start Infusion 05/12/2020 9:53 AM EDT 500 mL 50 mL/hr PERtuzumab (PERJETA) 420 mg in NSS 250 mL infusion 420 mg, IV Piggyback, ONCE, 1 dose, On Fri05/12/20 at 1130, Administer over 30 Minutes Start Infusion 05/12/2020 10:28 AM EDT 420 mg 500 mL/hr sodium chloride 0.9% flush/inj 10 mL 10 mL, IV Push, PRN Other, IV Flush, Starting on Fri05/12/20 at 0948, Until Fri05/12/20 at 1543, For 24 hours, Do not flush if lock, PICC, or central line not in place; IV infusing or unable to flush. Given 05/12/2020 11:36 AM EDT 10 mL trastuzumab (HERCEPTIN) 600 mg in NSS 250 mL infusion 600 mg (rounded from 622.2 mg = 6 mg/kg 103.7 kg Order-specific weight), IV Piggyback, ONCE, 1 dose, On Fri05/12/20 at 1200, Administer over 30 Minutes Start Infusion 05/12/2020 11:03 AM EDT 600 mg 500 mL/hr documented in this encounter Advance Directives Latest [...] gokul occurred with: Not Discussed Care Teams Psychiatric Security Nurse Relationship Specialty Start Date End Date Isha Escalante CRNP [address] [place] [id number] PCP - General Nurse Practitioner 06/25/23 documented as of this encounter
--- OUTSIDE RECORDS SUMMARY | 2023-10-22 07:29 | External Medical Summary ---
Author Name Unknown Address Unknown Organization [id number]:[facility] [place] [address] [facility] [place] [address] Laboratory Report Ordering Provider Test Date Status TARIQ MICHAEL 06/13/2023 08:17:20 Final Observation Date Value Abnormality Reference (Units ) Status SYNC LEUKOCYTES IN BLOOD BY AUTOMATED COUNT 06/13/2023 08:17:20 11.81 Above high normal 4.00-10.80 (K/uL) Final Segs 06/13/2023 08:17:20 81.9 Above high normal 40.0-75.0 (%) Final Lymphs % 06/13/2023 08:17:20 7.6 Below low normal 18.0-42.0 (%) Final Monos 06/13/2023 08:17:20 6.4 1.0-11.0 (%) Final Eosinophils 06/13/2023 08:17:20 3.3 0.0-6.0 (%) Final Basos 06/13/2023 08:17:20 0.4 0.0-2.0 (%) Final Immature Granulocyte, Percent 06/13/2023 08:17:20 0.4 0.0-2.0 (%) Final Absolute Segs 06/13/2023 08:17:20 9.67 Above high normal 1.80-7.70 (K/uL) Final Lymphs, absolute 06/13/2023 08:17:20 0.90 Below low normal 1.00-4.80 (K/ul) Final Monos, Abs 06/13/2023 08:17:20 0.75 0.00-1.10 (K/uL) Final Eos, Abs 06/13/2023 08:17:20 0.39 0.00-0.70 (K/uL) Final Basos, Abs 06/13/2023 08:17:20 0.05 0.00-0.20 (K/uL) Final Immature Granulocytes, Number 06/13/2023 08:17:20 0.05 0.00-0.20 (K/uL) Final Performing Location [facility] [place] [facility] [address] [facility] [id number]
--- OUTSIDE RECORDS SUMMARY | 2023-10-22 07:29 | External Medical Summary | Summary of Care ---
Author Name Unknown Organization [facility] Address [address] [place] [place] [address] Phone [phone] Care Team Providers Care Deputy Coroner Name Role Phone Isha Escalante Primary Care Provider Reason for Visit * Reason Comments Hospital Follow-Up Encounter Details Date Type Department Care Team Description 06/25/2023 Office Visit [facility] [address] [place] [address] [place] [address] Marylou Andino MD [address] [facility] [place] [address] Stage 3a chronic kidney disease (HCC)*; HTN, goal below 140/90 Allergies Active Allergy Reactions Severity Noted Date Comments Cephalosporins Hives 02/21/2009 Valproic Acid 11/28/2014 documented as of this encounter (statuses as of 06/26/2023) Medications Medication Sig Dispensed Refills Start Date [...] as of this encounter (statuses as of 06/26/2023) Active Problems Problem Noted Date History of breast cancer 10/20/2020 Dehydration 10/26/2019 Orthostatic hypotension 10/26/2019 Chemotherapy induced diarrhea 10/26/2019 Malignant neoplasm of lower- outer quadrant of left breast of female, estrogen receptor negative 10/01/2019 Cancer Staging:Clinical stage from 10/01/2019:Stage IIB(cT3, cN0, cM0, G3, ER-, NY-, HER2+) - Signed by Nikolas Daugherty MD on 10/01/2019 Difficult intubation 03/27/2015 Overview: Easy mask airway, 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 Chief Complaint Patient presents with Hospital Follow-Up HPI: Seen as hospital follow up. Admitted to [facility]-05/23 with hypertensive urgency(sBP-170-190), worsening lower leg edema, Sravan I on CKD( cr-2.3) PMH-Left breast invasive lobular carcinoma, large primary tumor on MRI No axillary lymphadenopathy.ER and NY receptor negative, Her2/Carlos-->Positive. --she completed Herceptin and pertuzumab maintenance in [...] 2019, with baseline creatinine fluctuating between 1.2-1.9. On review she was comfortable but had tangential thought process with labile mood at times. According to the she has not been very compliant with her blood pressure medications, she has been skipping doses and on occasions has refused taking medications at all.No urinary symptoms.No pedal edema. PMH: Patient Active Problem List Diagnosis Code [...] of left breast of female, estrogen receptor negative(HCC) C50.512, Z17.1 Dehydration E86.0 Orthostatic hypotension I95.1 Chemotherapy induced diarrhea K52.1, T45.1X5A History of breast cancer Z85.3 Current Outpatient Medications Medication Sig Dispense Refill Coenzyme Q10 (CO Q 10) 10 MG CAPS Take 3 Caps by mouth daily. Vitamin D3 50 MCG (2000 UT) Oral Tablet Take 1 Tablet by mouth in the morning. Iron 325 (65 Fe) MG Oral Tablet Take by mouth. Torsemide 20 MG Oral Tablet (Demadex) Take 3 Tablets by mouth in the morning. Carvedilol 3.125 MG Oral Tablet Take 1 Tablet by mouth 2 times a day with morning and evening meals. hydrALAZINE HCl 50 MG Oral Tablet (Apresoline) Take 1 Tablet by mouth in the morning and 1 Tablet at noon and 1 Tablet before bedtime. Vitamin B Complex Oral Capsule Take by mouth. IBUPROFEN 600 MG PO TABS 1 tablet by mouth three times daily x 2 weeks. Do not exceed 4 tabletsin 24 hours. (Patient not taking: Reported on 06/25/2023) 90 Tab 1 Vitamins-Lipotropics (LIPO-FLAVONOID PLUS) TABS Take 1 Tab by mouth daily. (Patient not taking:Reported on 06/13/2023) Kelp 0.15 MG TABS Take by mouth. (Patient not taking: Reported on 06/25/2023) Acetaminophen 325 MG Oral Tablet Chewable Take by mouth. (Patient not taking: Reported on 06/25/2023) Denosumab 60 MG/ML Subcutaneous Solution Prefilled Syringe (Prolia) INJECT 60 MG UNDER THE SKINONCE EVERY 6 MONTHS (Patient not taking: Reported on 06/25/2023) 2 mL 1 No current facility-administered medications for this visit. Past Medical History: Diagnosis Date Carcinoma in situ of breast left Malignant neoplasm of lower-outer quadrant of left breast of female, estrogen receptor negative(HCC) 10/01/2019 Past Surgical History: Procedure Laterality Date BREAST LESION,OTHER,EXCISION 06/11/10 [place] [facility] [place] BREAST RECONSTRUCTION W/TRAM 08/16/2010 BREAST RECONSTRUCTION WITH TRAM FLAP performed by NORMA BAHENA at [facility] BX LYMPH NODE DEEP AXIL Left 06/27/2020 BIOPSY LYMPH NODE DEEP AXILLARY OPEN performed by Jef Rooney MD at [facility] COLONOSCOPY, DIAGNOSTIC (RECTUM) 08/25/2015 adenomatous polyp, diverticulosis, repeat 5 yrs/[facility] DENTAL SURGERY PROCEDURE NEC childhood EGD, W/ENDOSCOPIC US 03/06/2015 gallstones, pancreatic cyst, normal bx/ESOPHAGOGASTRODUODENOSCOPY (EGD), FLEXIBLE, TRANSORAL, ENDOSCOPIC ULTRASOUND performed by Vivek García DO at ENDOSCOPY [facility] ENDOMETRIAL THERMAL ABLATE EXPLORATION OF NIPPLE 02/01/09 Left breast duct excision (DCIS) by Dr. Bhagat at [facility] FINE NEEDLE ASPIRATION BIOPSY, W/O IMAGING GUIDANCE; 1ST LESION 06/23 Left breast (ADH) FNA W/IMAGE 06/23 Left breast INSER TUNN ACC DEV;5 YRS/OLDER N/A 10/12/2019 INSERT TUNNELED CENTRAL VENOUS ACCESS WITH SUBQ PORT performed by Vern Gonzalez MD at [facility] LAPAROSCOPY; CHOLECYSTECTOMY N/A 03/27/2015 03/27/2015 laparoscopy cholecystectomy - MASTECTOMY, PARTIAL 03/27/09 Left breast PM (no residual [place]IS[place] [facility] 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) PARTIAL HYSTERECTOMY 2009 repair of rectal and bladder prolapse at same time REMOVAL OF TONSILS, UNDER AGE 13 childhood SENTINAL LYMPH NODE IDENTIFICATION, INTRAOP Left 06/27/2020 SENTINAL LYMPH NODE IDENTIFICATION, INTRAOP performed by Jef Rooney MD at [facility] US GUIDED BREAST BIOPSY 06/23 Left breast [...] Ref Rng 09/22/2020 10/13/2020 02/16/2021 09/21/2021 03/22/2022 NEPH-FLOW Bun 6 - 20 mg/dL 31 (H) 29 (H) 29 (H) 21 (H) 23 (H) Cr 0.5 - 1.0 mg/dL 1.6 (H) 1.5 (H) 1.2 (H) 1.2 (H) 1.2 (H) eGFR >=60 mL/min 48.4 (L) 47 (L) 50 (L) eGFR >60 34.0 (L) 37.0 (L) K 3.5 - 5.1 mmol/L 4.0 3.7 4.3 4.2 4.3 Hb 12.0 - 15.3 g/dL 10.8 (L) 10.1 (L) 10.4 (L) 11.1 (L) 10.7 (L) Latest Ref Rng 09/25/2022 03/26/2023 06/13/2023 NEPH-FLOW Bun 6 - 20 mg/dL 25 (H) 27 (H) 30 (H) Cr 0.5 - 1.0 mg/dL 1.3 (H) 1.2 (H) 1.9 (H) eGFR >=60 mL/min 45 (L) 53 (L) 28 (L) eGFR >60 K 3.5 - 5.1 mmol/L 4.0 4.2 4.1 Hb 12.0 - 15.3 g/dL 12.0 10.9 (L) 11.5 (L) Constitutional- Well , no complains, [...] no rashes Psy - Normal mood and affect. Objective: BP 99/62 | Pulse 89 | Wt 110.4 kg (243 lb 6.4 oz) | BMI 39.29 kg/m | BSA 2.27 m GEN: Comfortable, obese, pressured speech, tangential thinking [...] (243 lb 3.2 oz) ASSESSMENT: CKD stage IIIA/b -sequelae of chemotherapy/ HTN. There is a prerenal element to her fluctuations renal function. Baseline creatinine in mid 1s --her blood pressure has been very variable, as she has not been taking her antihypertensives as prescribed. -mild- risk of progression to ESRD -she is not on Cesario ARB at the moment, will start her on this on next appointment if her functions continue to be stable and she is more compliant with her antihypertensives. ACR/urine analysis today -needs to drink at least 65-70 oz of [...] discussed and patient expressed understanding RTC in 2 months. Marylou Andino MD This chart was completed in part utilizing [employer] Speech Voice Recognition Software. Randomword insertions, pronoun errors, and incomplete sentences are an occasional consequence of this system due to software limitations, and ambient noise. Any questions or concerns about the content, text, or information contained within the body of this dictation should be directly addressed to the provider for clarification. documented in this encounter Nursing Notes * Cordelia Gandhi LPN - 06/25/2023 11:38 AM EDT Chief Complaint Patient presents with Hospital Follow-Up documented in this encounter Plan of Treatment Upcoming Encounters Date Type Specialty Care Team Description 09/29/2023 Office Visit Nephrology Marylou Andino MD [address] [place] [address] 10/08/2023 Office Visit Hematology Oncology Nikolas Daugherty MD [address] [facility] [address] 10/15/2023 Hospital Encounter Endoscopy Kimmie Altamirano MD [address] [place] [address] [place] [address] 10/15/2023 Surgery Endoscopy Kimmie Altamirano MD [address] [place] [address] [place] [id number] COLONOSCOPY FLEXIBLE PROXIMAL DIAGNOSTIC Scheduled Orders Name Type Priority Associated Diagnoses Orde r Schedule US RENAL Medical Imaging Routine Stage 3a chronic kidney disease (HCC) Expected: 07/09/2023, Expires: 07/26/2024 COMPREHENSIVE METABOLIC PANEL Lab Routine Stage 3a chronic kidney disease (HCC) Expected: 09/25/2023, Expires: 06/25/2024 Scheduled Procedures Name Priority Associated Diagnoses Date/Ti [...] this encounter Medical Devices Implanted Type Area Production Control Technologist Device Identifier Shelf Expiration Date Model / Serial / Lot Mesh 10 X 14 [id number] - [id number] Implanted:Qty : 1 on 08/16/2010 at OR [facility] N/A: Abdomen [employer] 04/17/2015 [id number] / / [id number] Port Power Mri W/8fr Cath - [id number] Implanted:Qty : 1 on 10/12/2019 by Vern Gonzalez MD at [facility] N/A: Subclavian CR BARD : PERIPHERAL VASCULAR 03/16/2021 [id number] / / [id number] documented as of this encounter Results * (ABNORMAL) PTH (06/25/2023 12:58 PM EDT) PTH 69(H) 15 - 65 pg/mL 06/25/2023 11:03 PM EDT LABORATORY [facility] Blood Venous blood specimen / Unknown Venipuncture / Unknown 06/25/2023 12:58 PM EDT 06/25/2023 12:58 PM EDT Marylou Andino MD LAB BLOOD ORDERABLES LABORATORY [facility] [address] [place] [address] * 25-HYDROXY VITAMIN D (06/25/2023 12:58 PM EDT) 25-Hydroxy Vitamin D 62 >19 ng/mL 06/25/2023 11:03 PM EDT LABORATORY [facility] Blood Venous blood specimen / Unknown Venipuncture / Unknown 06/25/2023 12:58 PM EDT 06/25/2023 12:58 PM EDT Narrative LABORATORY [facility] - 06/25/2023 11:03 PM EDT Deficient: <20 ng/mL Insufficient: 20-29 ng/mL Recommended/Optimum:30-50 ng/mL Vitamin D intoxication is rare. If suspicious of Vitamin D toxicity, evaluation of serum Calcium and PTH is recommended. Marylou Andino MD LAB BLOOD ORDERABLES LABORATORY [facility] [address] [place] [address] * (ABNORMAL) URINALYSIS WITH MICROSCOPIC EXAM (06/25/2023 12:58 PM EDT) Color, Urine Yellow Colorless, Light Yellow, Yellow, Dark Yellow 06/25/2023 10:29 PM EDT LABORATORY [facility] Clarity, Urine Clear Clear 06/25/2023 10:29 PM EDT LABORATORY [facility] Glucose, Urine Negative Negative mg/dL 06/25/2023 10:29 PM EDT LABORATORY [facility] Bilirubin, Urine Negative Negative 06/25/2023 10:29 PM EDT LABORATORY [facility] Ketone, Urine Negative Negative mg/dL 06/25/2023 10:29 PM EDT LABORATORY [facility] Specific [place], Urine 1.009 1.003 - 1.030 06/25/2023 10:29 PM EDT LABORATORY [facility] Blood, Urine Negative Negative 06/25/2023 10:29 PM EDT LABORATORY [facility] pH, Urine 7.0 5.0 - 7.5 Units 06/25/2023 10:29 PM EDT LABORATORY [facility] Protein, Urine Negative Negative mg/dL 06/25/2023 10:29 PM EDT LABORATORY [facility] Urobilinogen, Urine Normal Normal mg/dL 06/25/2023 10:29 PM EDT LABORATORY [facility] Nitrite, Urine Negative Negative 06/25/2023 10:29 PM EDT LABORATORY [facility] Esterase, Urine Negative Negative 06/25/2023 10:29 PM EDT LABORATORY [facility] RBC, Urine 0-2 0 - 2 /HPF 06/25/2023 10:29 PM EDT LABORATORY C WBC, Urine 0-2 0 - 2 /HPF 06/25/2023 10:29 PM EDT LABORATORY [facility] Bacteria, Urine 0-25 0 - 25 /HPF 06/25/2023 10:29 PM EDT LABORATORY C Hyaline, Cast, Urine 1-4(A) None /LPF 06/25/2023 10:29 PM EDT LABORATORY [facility] Urine Urine specimen obtained by clean catch procedure / Unknown Non-blood Collection / Unknown 06/25/2023 12:58 PM EDT 06/25/2023 12:58 PM EDT Marylou Andino MD LAB URINE ORDERABLES Performing Organization Address City/[facility]/ZIP Co de Phone Number LABORATORY [facility] [address] [place] [address] * ALBUMIN / CREATININE RATIO, URINE (06/25/2023 12:58 PM EDT) Albumin, Random Urine <1.20 mg/dL 06/26/2023 12:36 AM EDT LABORATORY [facility] Creatinine, Random Urine 42 mg/dL 06/26/2023 12:36 AM EDT LABORATORY [facility] Albumin / Creatinine Ratio, Urine <29 <30 mg/g Creat 06/26/2023 12:36 AM EDT LABORATORY [facility] Urine Urine specimen obtained by clean catch procedure / Unknown Non-blood Collection / Unknown 06/25/2023 12:58 PM EDT 06/25/2023 12:58 PM EDT Narrative LABORATORY [facility] - 06/26/2023 12:36 AM EDT Normal: <30 mg/g creatinine High: 30-300 mg/g creatinine Very High: >300 mg/g creatinine Nephrotic: >2200 mg/g creatinine Marylou Andino MD LAB URINE ORDERABLES Performing Organization Address City/[facility] Co de Phone Number LABORATORY [facility] [address] [place] [address] documented in this encounter Visit Diagnoses Diagnosis Stage 3a [...] gokul occurred with: Not Discussed Care Teams Deputy Coroner Relationship Specialty Start Date End Date Isha Escalante CRNP [address] [place] [address] PCP - General Nurse Practitioner 06/25/23 documented as of this encounter"
[2023-10-22] MEDS: amLODIPine BESYLATE 5 MG TAB PO SCH (09:56)
[2023-10-22] MEDS: DOXYCYCLINE HYCLATE 100 MG CAP PO SCH ×2 (09:56→20:22)
[2023-10-22] MEDS: carvediloL 3.125 MG TAB PO SCH ×2 (09:56→20:22)
[2023-10-22] MEDS: hydrALAZINE TAB 50 MG TAB PO SCH ×3 (09:56→20:22)
[2023-10-22] MEDS: VITAMIN B COMPLEX TAB PO SCH (09:57)
[2023-10-22 11:32] LABS: Appearance Urine Cloudy (Clear); Bacteria Urine Automated Negative (Negative); Bilirubin Urine Negative (Negative); Blood Urine Negative (Negative); Color Urine Yellow; Epithelial Cell Urine Auto >30 /lpf (0-5); Glucose Urine UA Negative (Negative); Ketones Urine Negative (Negative); Leukocyte Esterase Urine Trace (Negative); Nitrite Urine Negative (Negative); Protein Urine Negative (Negative); RBC Urine Automated 0-4 /hpf (0-4); Specific Gravity Urine 1.015 (1.000-1.030); Urobilinogen Urine Negative (Negative)
--- NOTE | 2023-10-22 14:38 | Communication Note ---
Date of Service: October 22, 2023 68-year obese female was admitted with increasing leg swelling and also redness involving the right leg mainly with pain. She was treated for right lower leg cellulitis. No evidence of DVT and or osteomyelitis. Has been improving already. She will have full progress note tomorrow. Dr Nacho Molina
--- NOTE | 2023-10-22 15:30 | Electrocardiogram Report ---
Test Reason : Blood Pressure : / mmHG Vent. Rate : 093 BPM Atrial Rate : 093 BPM P-R Int : 164 ms QRS Dur : 076 ms QT Int : 332 ms P-R-T Axes : 032 047 057 degrees QTc Int : 412 ms Normal sinus rhythm Poor R wave progression, consider anterior MS vs. lead placement vs. LVH Abnormal ECG When compared with ECG of 22-MAY-2023 19:14, Vent. rate has increased BY 38 BPM Confirmed by Wilmar Johnson ([id number]) on 10/22/2023 3:29:41 PM Referred By: REFERRED SELF Confirmed By:Wilmar Johnson
[2023-10-22] MEDS ORDERED: POTASSIUM CHLORIDE CRTAB 20 MEQ TABCR PO STA (16:25)
[2023-10-23] MEDS: oxyCODONE HCL IR 5 MG TAB (IMMEDIATE RELEASE) PO PRN (03:00)
[2023-10-23] MEDS: HEPARIN SOD 5,000 UNIT/0.5 ML VIAL SQ SCH ×3 (04:50→22:29)
[2023-10-23] MEDS: hydrALAZINE TAB 50 MG TAB PO SCH ×3 (08:00→20:46)
[2023-10-23] MEDS: DOXYCYCLINE HYCLATE 100 MG CAP PO SCH ×2 (08:00→20:46)
[2023-10-23] MEDS: carvediloL 3.125 MG TAB PO SCH ×2 (08:00→20:45)
[2023-10-23] MEDS: amLODIPine BESYLATE 5 MG TAB PO SCH (08:00)
[2023-10-23] MEDS: VITAMIN B COMPLEX TAB PO SCH (08:00)
[2023-10-23 10:40] LABS: Basophils # (auto) 0.05 K/uL (0.00-0.20); Basophils % (auto) 0.3 %; Eosinophils # (auto) 0.02 K/uL (0.00-0.50); Eosinophils % (auto) 0.1 %; Hematocrit (blood only) 34.4 % (37.0-47.0); Hemoglobin 11.5 g/dl (12.0-16.0); Immature Granulocytes # (auto) 0.16 K/uL (0.01-0.20); Immature Granulocytes % (auto) 0.8 %; Lymphocytes # (auto) 0.98 K/uL (1.20-3.40); Lymphocytes % (auto) 5.2 %; Mean Corpuscular Hgb Conc 33.4 g/dL (32.0-36.0); Mean Corpuscular Volume 86.6 fL (80.0-100.0); Mean Platelet Volume 10.1 fL (9.4-12.4); Monocytes # (auto) 1.13 K/uL (0.11-0.59); Neutrophils # (auto) 16.62 K/uL (1.40-6.50); Neutrophils % (auto) 87.6 %; Platelet Count 421 K/uL (130-400); RDW Coefficient of Variation 14.6 % (11.5-14.5); RDW Standard Deviation 46.1 fL (36.4-46.3); Red Blood Count 3.97 M/uL (4.20-5.40); White Blood Count 18.96 K/ul (4.8-10.8)
[2023-10-23 11:00] LABS: BUN Creatinine Ratio 17.6 (10-20); Calcium 9.7 mg/dl (8.6-10.3); Creatinine Clr Calc Pharmacy 44.1 ml/min; Est GFR (African American) 40.4 ml/min; Est GFR (Non-African American) 34.8 ml/min; Potassium 4.2 mmol/L (3.5-5.1)
--- NOTE | 2023-10-23 15:36 | Hospitalist Progress Note ---
Date of Service October 23, 2023 Assessment & Plan (1) Cellulitis of right leg: Plan: Possible sepsis Rule out RLE abscess, DVT Question of vasodilation from amlodipine contributory No evidence of DVT or osteomyelitis Has been getting oral doxycycline No evidence of redness and edema of the legs have improved a lot Remains afebrile but white count remains elevated at 18 K Does not want to take any other antibiotic Will get PT and OT evaluation and repeat blood test tomorrow HTN, BP stable CKD, creatinine better than last outpatient baseline of 1.9 from May 2023 History of breast cancer Recurrent breast cancer left status post surgery/reconstruction/chemotherapy Chronic anemia, hemoglobin at baseline Anxiety/depression Mood disorder, at baseline, patient currently not on maintenance medications. Prediabetes, hemoglobin A1c of 5.9 last May 2023 DVT prophylaxis. Heparin subcu Full code Patient requesting updates from providers. Mr. Laureano Garcia, contact #[phone]. Admission and Anticipated Discharge Date Admission Date: October 22, 2023 Subjective 10/23/2023 The patient was seen and examined in medical floor She has been stable but a little irritated due to repeated disturbance in the hospital Her leg swelling and pain in the legs are better Denies any fever and or chills and denies any other significant symptoms Review of Systems Review of Systems: All systems reviewed and are unremarkable except as noted below Physical Exam Physical Exam: Lying in bed comfortably but very anxious Constitutional: well developed, well nourished, + ill appearing and + obese Eyes: PERRL, conjunctivae normal, anicteric sclerae ENMT: external ear and nose normal, oropharynx normal Neck: trachea midline, no thyromegaly Respiratory: no respiratory distress Auscultation: + diminished lung sounds and + crackles (Minimal crackles at the bases) Cardiovascular: Rate/Rhythm: regular rate, regular rhythm and + tachycardic Heart Sounds: normal S1, normal S2 and + murmur Extremities: + edema (1+ edema bilaterally) Gastrointestinal (Abdomen): Inspection/Auscultation: normal bowel sounds; abdomen not distended Percussion/Palpation: abdomen soft; abdomen nontender Musculoskeletal: No acute arthritis involving any joint Skin: No erythema involving the lower extremities Neurologic: Very anxious. Alert awake and oriented x 3. No focal neurodeficit Lymphatic: no cervical or axillary lymphadenopathy Results & Data Results & Data Vital Signs (Past 12 Hours) Vital Signs Temp Pulse Resp BP Pulse Ox O2 Del Method 10/23/23 14:26 36.9 C 100 H 16 119/80 97 Room Air 10/23/23 07:49 36.8 C 91 H 16 155/81 H 98 Room Air Laboratory Results Short CBC 10/23/23 Range/Units 10:22 WBC 18.96 H (4.8-10.8) K/ul Hgb 11.5 L (12.0-16.0) g/dl Hct 34.4 L (37.0-47.0) % Plt Count 421 H (130-400) K/uL BMP 10/23/23 10:22 Sodium 138 Potassium 4.2 D Chloride 103 Carbon Dioxide 24 BUN 27 H Creatinine 1.53 H Glucose 100 H Calcium 9.7 Medications Administered Current Inpatient Medications Acetaminophen (Acetaminophen 325 Mg Tab) 650 mg PO QID PRN PRN Reason: pain/fever Stop: 11/21/23 01:43 Amlodipine Besylate (Amlodipine Besylate 5 Mg Tab) [address] [facility] Stop: 11/21/23 08:59 Last Admin: 10/23/23 08:00 Dose: 5 mg Carvedilol (Carvedilol 3.125 Mg Tab) 3.125 mg PO BID GUTIERREZ Stop: 11/21/23 08:59 Last Admin: 10/23/23 08:00 Dose: 3.125 mg Doxycycline Hyclate (Doxycycline Hyclate 100 Mg Cap) 100 mg PO BID GUTIERREZ Stop: 10/29/23 08:59 Last Admin: 10/23/23 08:00 Dose: 100 mg Heparin Sodium (Porcine) (Heparin Sod 5,000 Unit/0.5 Ml Vial) 5,000 units SQ Q8 GUTIERREZ Stop: 11/21/23 05:59 Last Admin: 10/23/23 14:28 Dose: Not Given Hydralazine HCl (Hydralazine Tab 50 Mg Tab) [address] [facility] Stop: 11/21/23 08:59 Last Admin: 10/23/23 14:30 Dose: 50 mg Promethazine HCl 12.5 mg/ (Sodium Chloride) 50.5 mls @ 202 mls/hr IV Q6H PRN PRN Reason: Nausea And Vomiting Stop: 11/21/23 01:43 Oxycodone HCl (Oxycodone Hcl Ir 5 Mg Tab (Immediate Release)) 5 mg PO Q4H PRN PRN Reason: Pain Stop: 11/05/23 01:43 Last Admin: 10/23/23 03:00 Dose: 5 mg Vitamin B Complex (Vitamin B Complex Tab) 1 tab PO DAILY GUTIERREZ Stop: 11/21/23 08:59 Last Admin: 10/23/23 08:00 Dose: 1 tab
[2023-10-24] MEDS: HEPARIN SOD 5,000 UNIT/0.5 ML VIAL SQ SCH ×2 (05:02→14:29)
[2023-10-24 07:31] LABS: Basophils # (auto) 0.05 K/uL (0.00-0.20); Basophils % (auto) 0.4 %; Eosinophils # (auto) 0.05 K/uL (0.00-0.50); Eosinophils % (auto) 0.4 %; Hematocrit (blood only) 31.3 % (37.0-47.0); Hemoglobin 10.2 g/dl (12.0-16.0); Immature Granulocytes # (auto) 0.08 K/uL (0.01-0.20); Immature Granulocytes % (auto) 0.6 %; Lymphocytes # (auto) 1.06 K/uL (1.20-3.40); Lymphocytes % (auto) 7.6 %; Mean Corpuscular Hemoglobin 28.8 pg (25.0-34.0); Mean Corpuscular Hgb Conc 32.6 g/dL (32.0-36.0); Mean Corpuscular Volume 88.4 fL (80.0-100.0); Mean Platelet Volume 9.6 fL (9.4-12.4); Monocytes # (auto) 1.05 K/uL (0.11-0.59); Monocytes % (auto) 7.5 %; Neutrophils # (auto) 11.63 K/uL (1.40-6.50); Neutrophils % (auto) 83.5 %; Platelet Count 408 K/uL (130-400); RDW Coefficient of Variation 14.4 % (11.5-14.5); RDW Standard Deviation 46.5 fL (36.4-46.3); Red Blood Count 3.54 M/uL (4.20-5.40); White Blood Count 13.92 K/ul (4.8-10.8)
[2023-10-24] MEDS: DOXYCYCLINE HYCLATE 100 MG CAP PO SCH (07:54)
[2023-10-24] MEDS: hydrALAZINE TAB 50 MG TAB PO SCH ×2 (07:54→14:29)
[2023-10-24] MEDS: amLODIPine BESYLATE 5 MG TAB PO SCH (07:54)
[2023-10-24] MEDS: carvediloL 3.125 MG TAB PO SCH (07:54)
[2023-10-24] MEDS: VITAMIN B COMPLEX TAB PO SCH (07:55)
[2023-10-24 07:56] LABS: BUN Creatinine Ratio 17.1 (10-20); Calcium 9.6 mg/dl (8.6-10.3); Creatinine Clr Calc Pharmacy 54.9 ml/min; Est GFR (African American) 52.6 ml/min; Est GFR (Non-African American) 45.4 ml/min; Potassium 3.6 mmol/L (3.5-5.1)
--- NOTE | 2023-10-24 13:43 | Hospitalist Progress Note ---
Date of Service October 24, 2023 Assessment & Plan (1) Cellulitis of right leg: Plan: Possible sepsis Rule out RLE abscess, DVT Question of vasodilation from amlodipine contributory No evidence of DVT or osteomyelitis Has been getting oral doxycycline No evidence of redness and edema of the legs have improved a lot Remains afebrile but white count remains elevated at 18 K Does not want to take any other antibiotic Will get PT and OT evaluation and repeat blood test tomorrow She has been feeling much better without any leg pain, any fever and or chills She has been ambulating in the room with the walker and she is at her baseline She wants to go home today Chronic bilateral leg edema Has been on torsemide- She was strongly advised to take torsemide Give her legs elevated while in bed And ambulate with care with a walker Strongly advised to keep the legs elevated while in bed at least over 1-2 pillows Ambulate more with care and check torsemide as advised HTN, BP stable CKD, creatinine better than last outpatient baseline of 1.9 from May 2023 History of breast cancer Recurrent breast cancer left status post surgery/reconstruction/chemotherapy Chronic anemia, hemoglobin at baseline Anxiety/depression Mood disorder, at baseline, patient currently not on maintenance medications. Prediabetes, hemoglobin A1c of 5.9 last May 2023 DVT prophylaxis. Heparin subcu Full code Patient requesting updates from providers. Mr. Laureano Garcia, contact #[phone]. Will be discharged home this afternoon Discussed with the in detail and the patient will be discharged this afternoon Admission and Anticipated Discharge Date Admission Date: October 22, 2023 Subjective 10/23/2023 The patient was seen and examined in medical floor She has been stable but a little irritated due to repeated disturbance in the hospital Her leg swelling and pain in the legs are better Denies any fever and or chills and denies any other significant symptoms 10/24/2023 The patient was seen and examined in medical floor She has been stable and wants to go home No leg pain and the swelling is much improved He does not want to see psychiatrist while in the hospital Review of Systems Review of Systems: All systems reviewed and are unremarkable except as noted below Physical Exam Physical Exam: Lying in bed comfortably but very anxious Constitutional: well developed, well nourished, + ill appearing and + obese Eyes: PERRL, conjunctivae normal, anicteric sclerae ENMT: external ear and nose normal, oropharynx normal Neck: trachea midline, no thyromegaly Respiratory: no respiratory distress Auscultation: + diminished lung sounds and + crackles (Minimal crackles at the bases) Cardiovascular: Rate/Rhythm: regular rate, regular rhythm and + tachycardic Heart Sounds: normal S1, normal S2 and + murmur Extremities: + edema (1+ edema bilaterally) Gastrointestinal (Abdomen): Inspection/Auscultation: normal bowel sounds; abdomen not distended Percussion/Palpation: abdomen soft; abdomen nontender Musculoskeletal: No acute arthritis involving any of the joint Lymphatic: no cervical or axillary lymphadenopathy Results & Data Results & Data Vital Signs (Past 12 Hours) Vital Signs Temp Pulse Resp BP Pulse Ox O2 Del Method 10/24/23 08:03 36.8 C 76 16 107/67 97 Room Air Laboratory Results Short CBC 10/24/23 Range/Units 07:11 WBC 13.92 H (4.8-10.8) K/ul Hgb 10.2 L (12.0-16.0) g/dl Hct 31.3 L (37.0-47.0) % Plt Count 408 H (130-400) K/uL BMP 10/24/23 07:11 Sodium 139 Potassium 3.6 Chloride 106 Carbon Dioxide 24 BUN 21 Creatinine 1.23 H D Glucose 89 Calcium 9.6 Medications Administered Current Inpatient Medications Acetaminophen (Acetaminophen 325 Mg Tab) 650 mg PO QID PRN PRN Reason: pain/fever Stop: 11/21/23 01:43 Amlodipine Besylate (Amlodipine Besylate 5 Mg Tab) 5 mg PO QAM GUTIERREZ Stop: 11/21/23 08:59 Last Admin: 10/24/23 07:54 Dose: 5 mg Carvedilol (Carvedilol 3.125 Mg Tab) 3.125 mg PO BID GUTIERREZ Stop: 11/21/23 08:59 Last Admin: 10/24/23 07:54 Dose: 3.125 mg Doxycycline Hyclate (Doxycycline Hyclate 100 Mg Cap) 100 mg PO BID GUTIERREZ Stop: 10/29/23 08:59 Last Admin: 10/24/23 07:54 Dose: 100 mg Heparin Sodium (Porcine) (Heparin Sod 5,000 Unit/0.5 Ml Vial) 5,000 units SQ Q8 GUTIERREZ Stop: 11/21/23 05:59 Last Admin: 10/24/23 05:02 Dose: Not Given Hydralazine HCl (Hydralazine Tab 50 Mg Tab) 50 mg PO TID [facility] Stop: 11/21/23 08:59 Last Admin: 10/24/23 07:54 Dose: 50 mg Promethazine HCl 12.5 mg/ (Sodium Chloride) 50.5 mls @ 202 mls/hr IV Q6H PRN PRN Reason: Nausea And Vomiting Stop: 11/21/23 01:43 Oxycodone HCl (Oxycodone Hcl Ir 5 Mg Tab (Immediate Release)) 5 mg PO Q4H PRN PRN Reason: Pain Stop: 11/05/23 01:43 Last Admin: 10/23/23 03:00 Dose: 5 mg Vitamin B Complex (Vitamin B Complex Tab) 1 tab PO DAILY [facility] Stop: 11/21/23 08:59 Last Admin: 10/24/23 07:55 Dose: 1 tab
--- OUTSIDE RECORDS SUMMARY | 2023-10-24 17:51 | External Medical Summary | Summary of Care ---
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 0 Active Potassium Chloride ER 20 MEQ Oral Tablet Extended ReleaseIndications:S tage 3a chronic kidney disease (HCC) Take 1 Tablet by mouth in the morning. 30 Tablet 0 10/21/2023 Active documented as of this encounter (statuses [...] Difficult intubation 03/27/2015 Overview: Easy mask airway, MANAGER DOCUMENT unable to visualize vocal cords via direct [...] Telephone Encounter - Shira Paredes MD - 10/21/2023 1:31 PM ESTSigned Prescriptions: Disp Refills Potassium Chloride ER 20 MEQ Oral Tablet E*30 Tab*0 Sig: Take 1 Tablet by mouth in the morning.Authorizing Provider: SHIRA PAREDES * Telephone Encounter - Cordelia Gandhi LPN - 10/20/2023 1:26 PM EST Call to pt. Gave message. Pt asked that I call back and leave information on VM for her which I did. Please auth pending med. * Telephone Encounter - Cordelia Gandhi LPN - 10/20/2023 1:21 PM EST ----- Message from Shira Paredes MD sent at 10/16/2023 12:23 PM EST ----- Renal functions at baseline, K low Start on potassium chloride 20 mq-- 5 days. Repeat BMP in 1 week documented in this encounter Plan of Treatment Upcoming Encounters Date Type Department Care Team (Late st Contact Info) Description 02/18/2024 2:00 PM EDT Office Visit Nephrology, [place] [address] [place] [address] Shira Paredes MD [address] [place] [address] 04/07/2024 2:45 PM EDT Office Visit Hematology/Oncology [facility] [address] [place] [address] Nikolas Daugherty MD [address] [place] [address] Health Maintenance Due Date Last Done Comments DXA Scan 1956 Lipid Panel 1956 COVID-19 Vaccine (#1) 1956 Depression Screening 1968 CKD PHOS USE SMARTSET 29693 1974 Hepatitis C Screening 1974 DTaP,Tdap,and Td Vaccines (1 - Tdap) 1975 Zoster Vaccines (1 of 2) 2006 Pneumococcal Vaccine: 65+ Years (1 - PCV) 2021 Influenza Vaccine (FLU shot) (#1) 2023 GFR 04/14/2024 10/15/2023, 09/17, 06/13/2023, Additional history exists CKD HGB USE SMARTSET 48193 06/13/202406/13, 06/13/2023, 03/26/2023, Additional history exists Albumin/Creatinine [...] this encounter Medical Devices Implanted Type Area Contact Representative Device Identifier Shelf Expiration Date Model / Serial / Lot Mesh 10 X 14 [id number] - [id number] Implanted:Qty : 1 on 08/16/2010 at OR [facility] N/A: Abdomen [employer] 04/17/2015 [id number] / / [id number] Port Power Mri W/8fr Cath - [id number] Implanted:Qty : 1 on 10/12/2019 by Vern Gonzalez MD at OR [facility] N/A: Subclavian CR BARD : PERIPHERAL VASCULAR 03/16/2021 [id number] / / [id number] documented as of this encounter Visit Diagnoses Diagnosis Stage 3a chronic kidney disease (HCC)- Primary documented in this encounter Advance Directives Latest [...] gokul occurred with: Not Discussed Care Teams [employer] Mechanic Relationship Specialty Start Date End Date Isha Escalante CRNP [address] [place] [address] PCP - General Nurse Practitioner 06/25/23 documented as of this encounter
--- NOTE | 2023-11-11 08:44 | Discharge Summary ---
Date of Service November 11, 2023 Discharge Summary is for 10/24/2023 Admission HPI Per Admitting Provider History obtained from patient and records. Medical history significant for recurrent breast cancer left status post surgery/reconstruction/chemotherapy, CRI (baseline creatinine 1.9 from May 2023), chronic anemia (baseline hemoglobin of 10), mood disorder, orthostatic hypotension as per records, prediabetes, difficult intubation as per records. Last confinement May 2023 for hypertensive emergency and ARF on CKD. Patient seen by Nephrology and discharged on multiple blood pressure medications. 1 day history of achy RLE pain, increased swelling than usual. No recollection of trauma. No fever, no chills, no chest pain, no SOB. Patient compliant with home medications. Actually losing weight. Patient consulted ER for evaluation. 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[employer] Admission Exam Per Admitting Provider Physical Exam: GENERAL: Slightly uncomfortable, morbidly obese, unkempt, no respiratory distress SKIN: Pallor, warm HEENT: Pale palpebral conjunctivae, no ptosis, dry buccal mucosa NECK : Supple, short neck, no tenderness CHEST : Decreased breath sounds, no tenderness HEART : RRR, no obvious murmurs ABDOMEN: Some distention, nontender EXTREMITIES : Bilateral LE swelling, R> L, minimal RLE erythema with tenderness, no other conspicuous deformities noted NEUROLOGIC : Coherent, no facial asymmetry, no other gross focality Principal Diagnosis Right leg cellulitis, chronic bilateral leg edema, anxiety/depression Discharge Exam Lying in bed comfortably but very anxious Constitutional well developed, well nourished, + ill appearing and + obese Eyes PERRL, conjunctivae normal, anicteric sclerae ENMT external ear and nose normal, oropharynx normal Neck trachea midline, no thyromegaly Respiratory no respiratory distress Auscultation: + diminished lung sounds and + crackles (Minimal crackles at the bases) Cardiovascular Rate/Rhythm: regular rate, regular rhythm and + tachycardic Heart Sounds: normal S1, normal S2 and + murmur Extremities: + edema (1+ edema bilaterally) Gastrointestinal (Abdomen) Inspection/Auscultation: normal bowel sounds; abdomen not distended Percussion/Palpation: abdomen soft; abdomen nontender Lymphatic no cervical or axillary lymphadenopathy Discharge Data Allergies Allergy/AdvReac Type Severity Reaction Status Date / Time cephalexin Allergy Severe HIVES Verified 05/22/23 21:36 cefprozil Allergy Unknown UNKNOWN Verified 05/22/23 21:36 Consultations 10/22/23 01:22 ED Decision to Admit Stat Ordered Studies 10/22/23 01:38 CT foot RT wo con Stat CT tib/fib RT wo con Stat US venous duplex leg [US venous doppler LE RT] Stat Hospital Course (1) Cellulitis of right leg: Possible sepsis Rule out RLE abscess, DVT Question of vasodilation from amlodipine contributory No evidence of DVT or osteomyelitis Has been getting oral doxycycline No evidence of redness and edema of the legs have improved a lot Remains afebrile but white count remains elevated at 18 K Does not want to take any other antibiotic Will get PT and OT evaluation and repeat blood test tomorrow She has been feeling much better without any leg pain, any fever and or chills She has been ambulating in the room with the walker and she is at her baseline She wants to go home today Chronic bilateral leg edema Has been on torsemide- She was strongly advised to take torsemide Give her legs elevated while in bed And ambulate with care with a walker Strongly advised to keep the legs elevated while in bed at least over 1-2 pillows Ambulate more with care and check torsemide as advised HTN, BP stable CKD, creatinine better than last outpatient baseline of 1.9 from May 2023 History of breast cancer Recurrent breast cancer left status post surgery/reconstruction/chemotherapy Chronic anemia, hemoglobin at baseline Anxiety/depression Mood disorder, at baseline, patient currently not on maintenance medications. Prediabetes, hemoglobin A1c of 5.9 last May 2023 DVT prophylaxis. Heparin subcu Full code Patient requesting updates from providers. Mr. Laureano Garcia, contact #[phone]. Will be discharged home this afternoon Discussed with the in detail and the patient will be discharged this afternoon Total Time Total Time Spent Total Time Spent (In Minutes): 35 minutes Discharge Plan Discharge Items Patient Disposition: Home - Self-Care Reason For Visit: RLE CELLULITIS Discharge Diagnosis: Right leg cellulitis, chronic bilateral leg edema, anxiety/depression Condition on Discharge: Fair Activity: Resume your previous activity Non-emergency contact: Primary Care Provider Call non-emergency contact if: you have any medication questions and your symptoms worsen Follow-up/Referrals: Anthony Costello DO [Primary Care Provider] - 11/14/23 8:20 am (This appointment is the next available for your doctor's office. Please call the office if you have any questions. ) Diet: Heart Healthy and Low Sodium (2gm) Fluids: 1500ml (6 cups) Addtl Attending Provider Instructions: Please take precautions to avoid falls Finish the course of antibiotic Take your torsemide regularly to decrease leg swelling Please keep appointment with your healthcare provider Pending Studies at Discharge: No Stand-Alone Forms: My [facility] [employer], Smoking Cessation Medications and DC Order Prescriptions: New doxycycline hyclate 100 mg Capsule 100 mg PO BID Qty: 14 0RF Continued vitamin B complex Tablet 1 tab PO DAILY coenzyme Q10 30 mg Capsule 30 mg PO DAILY cholecalciferol (vitamin D3) [Vitamin D3] 50 mcg (2,000 unit) Tablet 50 mcg PO DAILY carvedilol 3.125 mg Tablet 3.125 mg PO BID Qty: 60 0RF hydralazine 50 mg Tablet 50 mg PO TID Qty: 90 0RF potassium chloride 20 mEq tablet extended release 20 meq PO DAILY amlodipine 10 mg tablet 10 mg PO QAM Changed torsemide 20 mg tablet 20 mg PO DAILY Qty: 30 0RF Discharge Orders: Discharge Order (Routine); Ordered 10/24/23 Ordered By: Jesus Molina Admission Data Admit Date/Time: 10/22/23 01:44 Attending Provider: Jesus Molina Admit Provider: Cam Howard Primary Care Provider: Anthony Costello Other Interventions: Discharge Summary Assessment (RN) Last Done: 10/24/23 14:22
== END 2023-10-24 16:46 | disposition home or self-care (01) ==
LOC: 3N 17:47 → ED 17:47 → SUATTDRO 10-22 01:44 → 3N 10-22 03:30